=== PATIENT | male | born 1970 ===

== ENCOUNTER 2018-10-09 14:18 | Emergency (ER) | payer OTHER, SELFPAY ==
[2018-10-09 14:36] VITALS: BP 139/96; PULSE 115; RESP 22; TEMP 37.9; O2SAT 96; BMI 50.1
--- NOTE | 2018-10-09 14:57 | ED.SKABFB ---
HPI - Skin/Abscess/Foreign Bdy <NICOLE Vasquez-BC - Last Filed: 10/09/18 19:19> General Chief complaint: Skin/Abscess/Foreign Body Stated complaint: Hernia burst Time Seen by Provider: 10/09/18 14:35 Source: patient and family Mode of arrival: ambulatory Limitations: no limitations History of Present Illness HPI narrative: Patient is a 48-year-old male nonsmoker presents with his for chief complaint of a burst hernia. Has history of diabetes, hypertension, hypothyroid as well as a C-spine fracture a few years ago. He states his hernia has been bothering him for years, he is following up with primary care provider. He states it started hurting on Wednesday. He states he was trying to reduce it this morning and it ?burst a leak and drained brown and serosanguineous fluid. He denies any fevers. He denies any nausea vomiting or diarrhea. Denies any chest pain shortness of breath cough or congestion. Related Data Previous Rx's Medication Instructions Recorded cephalexin [Keflex] 500 mg PO QID 10 Days #40 cap 10/09/18 sulfamethoxazole-trimethoprim 1 tab PO BID #20 tab 10/09/18 [Bactrim DS] Allergies Allergy/AdvReac Type Severity Reaction Status Date / Time Iodinated Contrast- Oral and Allergy Verified 10/09/18 17:19 IV Dye Review of Systems <NICOLE Vasquez-BC - Last Filed: 10/09/18 19:19> Review of Systems GENERAL: Denies chills, fatigue, malaise, fever, sweats. HEENT: Denies sinus pain, ear pain, sore throat, difficulty swallowing, dizziness. RESPIRATORY: Denies dyspnea, cough, wheezing, hemoptysis, sputum. CARDIOVASCULAR: Denies chest pain, palpitations, orthopnea, edema, GASTROINTESTINAL: Denies nausea, vomiting, abdominal pain, diarrhea, constipation, melena. : Denies dysuria, frequency, incontinence, hematuria, urinary retention. MUSCULOSKELETAL: denies weakness, joint pain, or bony pain SKIN: Denies rash, skin lesions, or other NEUROLOGIC: Denies weakness, headache, numbness, change in speech, confusion, seizures, incoordination. PSYCHIATRIC: No concerning psychosocial issues. 12 point review of systems is negative except for those stated above PFSH <THIERRY Vasquez - Last Filed: 10/09/18 19:19> Medical History (Updated 10/09/18 @ 19:00 by THIERRY Vasquez) Diabetes (Acute) Hernia, umbilical (Acute) Hypertension (Acute) Morbid obesity (Acute) Social History Smoking Status: Never smoker Social History Smoking Status: Never smoker Exam <THIERRY Vasquez - Last Filed: 10/09/18 19:19> Narrative Exam Narrative: GENERAL: Morbidly obese gentleman lying on stretcher HEAD: Atraumatic. Normocephalic. No temporal or scalp tenderness. EYES: Pupils equal round and reactive. Extraocular motions intact. No scleral icterus. No injection or drainage. NECK: Trachea midline. No JVD or lymphadenopathy. Supple, nontender, no meningeal signs. CARDIOVASCULAR: Tachycardic rate and rhythm without murmurs, gallops, or rubs. RESPIRATORY: Clear to auscultation. Breath sounds equal bilaterally. No wheezes, rales, or rhonchi. No cough. No increased respiratory effort. No accessory muscle use. GASTROINTESTINAL: Abdomen obese, non-tender, nondistended. No hepato-splenomegaly, or palpable masses. No guarding. Large umbilical hernia present. Soft to palpation. No discoloration. Active bowel sounds.. NEURO: AOx3. SKIN: 26 x 28 cm of erythema surrounding umbilicus. Serosanguineous drainage noted from umbilicus. Initial Vital Signs Initial Vital Signs: Vital Signs Temperature 100.2 F H 10/09/18 14:36 Pulse Rate 115 H 10/09/18 14:36 Respiratory Rate 22 10/09/18 14:36 Blood Pressure 139/96 H 10/09/18 14:36 Pulse Oximetry 96 10/09/18 14:36 <Iris Corbett DO - Last Filed: 10/17/18 07:42> Narrative Exam Narrative: GENERAL: Alert and oriented x three, obese male in mild distress. HEENT: Head normocephalic, atraumatic, EOMI, pupils reactive, face symmetric, moist mucous membranes NECK: Supple, full range of motion CARDIOVASCULAR: Regular rate and rhythm without murmurs, rubs or gallops. RESPIRATORY: Breath sounds equal bilaterally, no wheezes rales or rhonchi. ABDOMEN: Soft, nontender. Normoactive bowel sounds all 4 quadrants. No guarding or rebound, rigidity, no mass. Patient has a umbilical hernia that is easily reducible. There is a small opening on the inside of the umbilicus that appears to be open and the source of drainage I am unable to express any further purulence fluid on exam. There is a scant amount of blood. There is some erythema surrounding the umbilicus which extends about 5cm. With some hyperkeratotic skin which patient states is old. : No CVA tenderness EXTREMITIES: Normal range of motion, no clubbing or edema. Neurovascularly intact NEUROLOGICAL: Cranial nerves II through XII grossly intact. Moving all extremities SKIN: Warm, dry, no petechiae, no rashes or lesions. Initial Vital Signs Initial Vital Signs: Vital Signs Temperature 100.2 F H 10/09/18 14:36 Pulse Rate 115 H 10/09/18 14:36 Respiratory Rate 22 10/09/18 14:36 Blood Pressure 139/96 H 10/09/18 14:36 Pulse Oximetry 96 10/09/18 14:36 Course <NICOLE Vasquez- - Last Filed: 10/09/18 19:19> Orders Ordered: Discontinued Medications Diphenhydramine HCl (Benadryl) 50 mg IV NOW ONE Stop: 10/09/18 15:01 Last Admin: 10/09/18 15:23 Dose: 50 mg Sodium Chloride (Normal Saline 0.9%) 1,000 mls @ 1,000 mls/hr IV BOLUS ONE Stop: 10/09/18 15:40 Last Infusion: 10/09/18 17:27 Dose: 0 mls/hr Admin: 10/09/18 15:23 Dose: 1,000 mls/hr Ceftriaxone Sodium/Dextrose (Rocephin) 2 gm in 50 mls @ 100 mls/hr IV NOW ONE Stop: 10/09/18 17:41 Last Infusion: 10/09/18 17:40 Dose: 0 mls/hr Admin: 10/09/18 17:27 Dose: 100 mls/hr Ketorolac Tromethamine (Toradol) 30 mg IV NOW ONE Stop: 10/09/18 17:34 Last Admin: 10/09/18 17:41 Dose: 30 mg Methylprednisolone (Solu-Medrol 125 Mg Vial) 125 mg IV NOW ONE Stop: 10/09/18 15:01 Last Admin: 10/09/18 15:23 Dose: 125 mg Trimethoprim/Sulfamethoxazole (Bactrim Ds) 1 tab PO NOW ONE Stop: 10/09/18 18:12 Last Admin: 10/09/18 18:17 Dose: 1 tab Vital Signs - 8 hr 10/09/18 14:36 10/09/18 17:00 10/09/18 18:18 Temperature 100.2 F H Pulse Rate 115 H 99 H 63 Respiratory Rate 22 11 L 18 Blood Pressure 139/96 H Blood Pressure [Left Arm] 113/71 142/84 H Pulse Oximetry 96 95 93 10/09/18 18:29 Temperature Pulse Rate 98 H Respiratory Rate 16 Blood Pressure Blood Pressure [Left Arm] 148/93 H Pulse Oximetry 94 <Iris Corbett DO - Last Filed: 10/17/18 07:42> Orders Ordered: Discontinued Medications Diphenhydramine HCl (Benadryl) 50 mg IV NOW ONE Stop: 10/09/18 15:01 Last Admin: 10/09/18 15:23 Dose: 50 mg Sodium Chloride (Normal Saline 0.9%) 1,000 mls @ 1,000 mls/hr IV BOLUS ONE Stop: 10/09/18 15:40 Last Infusion: 10/09/18 17:27 Dose: 0 mls/hr Admin: 10/09/18 15:23 Dose: 1,000 mls/hr Ceftriaxone Sodium/Dextrose (Rocephin) 2 gm in 50 mls @ 100 mls/hr IV NOW ONE Stop: 10/09/18 17:41 Last Infusion: 10/09/18 17:40 Dose: 0 mls/hr Admin: 10/09/18 17:27 Dose: 100 mls/hr Ketorolac Tromethamine (Toradol) 30 mg IV NOW ONE Stop: 10/09/18 17:34 Last Admin: 10/09/18 17:41 Dose: 30 mg Methylprednisolone (Solu-Medrol 125 Mg Vial) 125 mg IV NOW ONE Stop: 10/09/18 15:01 Last Admin: 10/09/18 15:23 Dose: 125 mg Trimethoprim/Sulfamethoxazole (Bactrim Ds) 1 tab PO NOW ONE Stop: 10/09/18 18:12 Last Admin: 10/09/18 18:17 Dose: 1 tab Vital Signs - 8 hr 10/09/18 14:36 10/09/18 17:00 10/09/18 18:18 Temperature 100.2 F H Pulse Rate 115 H 99 H 63 Respiratory Rate 22 11 L 18 Blood Pressure 139/96 H Blood Pressure [Left Arm] 113/71 142/84 H Pulse Oximetry 96 95 93 10/09/18 18:29 Temperature Pulse Rate 98 H Respiratory Rate 16 Blood Pressure Blood Pressure [Left Arm] 148/93 H Pulse Oximetry 94 MDM - Skin/Abscess/Foreign Bdy <Iris Lr, APPRAISAL MANAGER-BC - Last Filed: 10/09/18 19:19> Lab Data Result diagrams: 10/09/18 14:50 10/09/18 14:50 Lab Results 10/09/18 10/09/18 10/09/18 Range/Units 14:50 14:50 14:50 WBC 13.4 H (4.5-11.0) X10^3/uL RBC 4.55 (4.5-5.9) X10^6/uL Hgb 13.7 (13.5-17.5) g/dL Hct 40.9 L (41-53) % MCV 89.9 (80-100) fL MCH 30.0 (26-34) PG MCHC 33.4 (30-36) % RDW 13.4 (11.6-14.8) % Plt Count 262 (150-400) X10^3/uL Neut % (Auto) 71.3 (50-75) % Lymph % (Auto) 14.5 L (25-40) % [place] % (Auto) 10.2 (3-14) % Eos % (Auto) 3.1 (2-4) % Baso % (Auto) 0.9 (0-2) % Neut # (Auto) 9600 H (9702-8935) /uL Lymph # (Auto) 1900 (7297-3890) /uL [place] # (Auto) 1400 H (0-900) /uL Eos # (Auto) 400 (0-450) /uL Baso # (Auto) 100 (0-100) /uL PT 13.5 H (10.1-12.7) SECONDS INR 1.2 (0.9-1.3) APTT 28 (26.4-36.2) SECONDS Sodium (137-145) mmol/L Potassium (3.4-5.1) mmol/L Chloride (98-107) mmol/L Carbon Dioxide (22-32) mmol/L BUN (9-20) mg/dL Creatinine (0.66-1.25) mg/dL Estimated GFR (>60) mL/min BUN/Creatinine Ratio (6-22) Glucose (70-100) mg/dL Lactate (0.7-2.1) mmol/L Calcium (8.4-10.2) mg/dL Total Bilirubin (0.2-1.3) mg/dL AST (17-59) IU/L ALT (21-72) IU/L Alkaline Phosphatase (38-126) U/L Total Protein (6.3-8.2) g/dL Albumin (3.5-5.0) g/dL Globulin (1.7-4.1) g/dL Albumin/Globulin Ratio (1.0-2.8) Procalcitonin 0.13 (<0.5) ng/mL Urine Color Urine Appearance Urine pH (4.5-8.0) Ur Specific [place] (1.000-1.035) Urine Protein (Negative) Urine Glucose (UA) (Negative) g/dL Urine Ketones (NEGATIVE) Urine Occult Blood (Negative) Urine Nitrate (Negative) Urine Bilirubin (NEGATIVE) Urine Urobilinogen (0.2) E.U./dL Ur Leukocyte Esterase (NEGATIVE) Urine RBC (0-5/HPF) Urine WBC (0-5/HPF) Ur Squamous Epith Cells (0-5/HPF) Amorphous Sediment Urine Bacteria (None) Urine Mucus (Negative) Ur Culture Indicated? 10/09/18 10/09/18 10/09/18 Range/Units 14:50 14:50 15:15 WBC (4.5-11.0) X10^3/uL RBC (4.5-5.9) X10^6/uL Hgb (13.5-17.5) g/dL Hct (41-53) % MCV (80-100) fL MCH (26-34) PG MCHC (30-36) % RDW (11.6-14.8) % Plt Count (150-400) X10^3/uL Neut % (Auto) (50-75) % Lymph % (Auto) (25-40) % [place] % (Auto) (3-14) % Eos % (Auto) (2-4) % Baso % (Auto) (0-2) % Neut # (Auto) (9220-2503) /uL Lymph # (Auto) (0619-0114) /uL [place] # (Auto) (0-900) /uL Eos # (Auto) (0-450) /uL Baso # (Auto) (0-100) /uL PT (10.1-12.7) SECONDS INR (0.9-1.3) APTT (26.4-36.2) SECONDS Sodium 133 L (137-145) mmol/L Potassium 4.1 (3.4-5.1) mmol/L Chloride 98 (98-107) mmol/L Carbon Dioxide 24 (22-32) mmol/L BUN 9 (9-20) mg/dL Creatinine 0.80 (0.66-1.25) mg/dL Estimated GFR > 60.0 (>60) mL/min BUN/Creatinine Ratio 11.3 (6-22) Glucose 209 H (70-100) mg/dL Lactate 1.7 (0.7-2.1) mmol/L Calcium 8.9 (8.4-10.2) mg/dL Total Bilirubin 0.6 (0.2-1.3) mg/dL AST 29 (17-59) IU/L ALT 28 (21-72) IU/L Alkaline Phosphatase 108 (38-126) U/L Total Protein 7.1 (6.3-8.2) g/dL Albumin 3.8 (3.5-5.0) g/dL Globulin 3.3 (1.7-4.1) g/dL Albumin/Globulin Ratio 1.2 (1.0-2.8) Procalcitonin (<0.5) ng/mL Urine Color Yellow Urine Appearance Clear Urine pH 5.5 (4.5-8.0) Ur Specific [place] 1.020 (1.000-1.035) Urine Protein 1+ H (Negative) Urine Glucose (UA) Negative (Negative) g/dL Urine Ketones Trace H (NEGATIVE) Urine Occult Blood Negative (Negative) Urine Nitrate Negative (Negative) Urine Bilirubin Negative (NEGATIVE) Urine Urobilinogen 0.2 (0.2) E.U./dL Ur Leukocyte Esterase Negative (NEGATIVE) Urine RBC None seen (0-5/HPF) Urine WBC None seen (0-5/HPF) Ur Squamous Epith Cells 0-1 /hpf (0-5/HPF) Amorphous Sediment 1+ Urine Bacteria None seen (None) Urine Mucus 1+ H (Negative) Ur Culture Indicated? Cult not indicated Imaging Data CT scan - abdomen: Radiologist's impression: [address] [address] [address] Scan Report Signed Patient: Tirso Rooney JMR#: [id number] : 1970Acct:[id number] Age/Sex: 48 / MDate of Service: 10/09/18 Loc: ED Accession Number: [id number] Procedure: CT abdomen pelvis w con Ordering Provider: Iris Lr APPRAISAL MANAGER-BC PROCEDURE: CT ABDOMEN PELVIS W CON INDICATIONS: draining fluid from umbilicus TECHNIQUE: After the administration of intravenous contrast, 5 mm thick sections acquired from the diaphragm to the symphysis. 5 mm coronal and sagittal reformats were acquired. For radiation dose reduction, the following was used: automated exposure control, adjustment of mA and/or kV according to patient size. COMPARISON: None. FINDINGS: Image quality: This study is limited by body habitus. Importantly anterior abdominal wall is off of the view of this study. ABDOMEN: Lung bases: Lung bases are clear. Heart size is normal. A small hiatal hernia is incidentally noted. Solid organs: Liver is normal in size and enhancement. Diffuse fatty liver infiltration is noted. Gallbladder wall is not thickened. Biliary system is non dilated. Pancreas enhances normally. Spleen is normal in size and enhancement. No adrenal nodules. Kidneys demonstrate normal size and enhancement, without hydronephrosis. Peritoneum and bowel: Bowel loops demonstrate normal wall thickness and caliber. No free fluid or air. Nodes and vessels: No retroperitoneal or mesenteric adenopathy by size criteria. Aorta and inferior vena cava are normal in size. Miscellaneous: This patient has a large periumbilical hernia, which contains fat and nondilated small bowel. There is thickening seen of the skin along the anterior and inferior portions of the hernia. However, this is incompletely visualized, secondary to body habitus and is outside of the [id number] of the CT study. No focal fluid collections are seen. PELVIS: Genitourinary: Bladder wall thickness is normal. Miscellaneous: No inguinal hernias or adenopathy. Bones: No suspicious bony lesions. No vertebral body compression fractures. Lumbar spine degenerative changes are seen. IMPRESSION: Incompletely seen large periumbilical hernia which contains fat and small bowel. There is skin thickening seen along the anterior aspect of the hernia, which is likely related to cellulitis. No focal drainable abscess can be seen. Incidental note is made of: Small hiatal hernia Fatty liver infiltration Premature lumbar spine degenerative change Dictated by: Jean Marie Cruz M.D. on 10/09/2018 at 15:26 Approved by: Jean Marie Cruz M.D. on 10/09/2018 at 15:30 MDM Narrative Medical decision making narrative: The patient is a 48-year-old male who presents with chief complaint of leakage from his umbilicus and concerned that is his hernia. He does not have an elevated lactate or procalcitonin, though he has low-grade temperature and a slightly elevated white blood cell count. Given his tachycardia and low-grade temperature, doctor Corbett also evaluated the patient and his hernia. A CT scan was taken to obtain any acute etiologies were hurting his hernia. He does have overlying cellulitis, so I think it is likely that he burst an abscess. Wound culture was taken, he was placed on Keflex and Bactrim after receiving IV Rocephin. I discussed at length return precautions for fever, inability keep down food or fluids etc. Patient was given Toradol for pain, with good result. Given his allergy to contrast dye, he was given Benadryl and Solu-Medrol prior to administration. The patient have no questions or concerns upon discharge. He states he never return precautions and plan on following up with the patient's PCP tomorrow. <Iris Corbett, DO - Last Filed: 10/17/18 07:42> Lab Data Attestation: I reviewed the patient's lab results. Lab Results 10/09/18 10/09/18 10/09/18 Range/Units 14:50 14:50 14:50 WBC 13.4 H (4.5-11.0) X10^3/uL RBC 4.55 (4.5-5.9) X10^6/uL Hgb 13.7 (13.5-17.5) g/dL Hct 40.9 L (41-53) % MCV 89.9 (80-100) fL MCH 30.0 (26-34) PG MCHC 33.4 (30-36) % RDW 13.4 (11.6-14.8) % Plt Count 262 (150-400) X10^3/uL Neut % (Auto) 71.3 (50-75) % Lymph % (Auto) 14.5 L (25-40) % [place] % (Auto) 10.2 (3-14) % Eos % (Auto) 3.1 (2-4) % Baso % (Auto) 0.9 (0-2) % Neut # (Auto) 9600 H (1085-0657) /uL Lymph # (Auto) 1900 (1107-1916) /uL [place] # (Auto) 1400 H (0-900) /uL Eos # (Auto) 400 (0-450) /uL Baso # (Auto) 100 (0-100) /uL PT 13.5 H (10.1-12.7) SECONDS INR 1.2 (0.9-1.3) APTT 28 (26.4-36.2) SECONDS Sodium (137-145) mmol/L Potassium (3.4-5.1) mmol/L Chloride (98-107) mmol/L Carbon Dioxide (22-32) mmol/L BUN (9-20) mg/dL Creatinine (0.66-1.25) mg/dL Estimated GFR (>60) mL/min BUN/Creatinine Ratio (6-22) Glucose (70-100) mg/dL Lactate (0.7-2.1) mmol/L Calcium (8.4-10.2) mg/dL Total Bilirubin (0.2-1.3) mg/dL AST (17-59) IU/L ALT (21-72) IU/L Alkaline Phosphatase (38-126) U/L Total Protein (6.3-8.2) g/dL Albumin (3.5-5.0) g/dL Globulin (1.7-4.1) g/dL Albumin/Globulin Ratio (1.0-2.8) Procalcitonin 0.13 (<0.5) ng/mL Urine Color Urine Appearance Urine pH (4.5-8.0) Ur Specific [place] (1.000-1.035) Urine Protein (Negative) Urine Glucose (UA) (Negative) g/dL Urine Ketones (NEGATIVE) Urine Occult Blood (Negative) Urine Nitrate (Negative) Urine Bilirubin (NEGATIVE) Urine Urobilinogen (0.2) E.U./dL Ur Leukocyte Esterase (NEGATIVE) Urine RBC (0-5/HPF) Urine WBC (0-5/HPF) Ur Squamous Epith Cells (0-5/HPF) Amorphous Sediment Urine Bacteria (None) Urine Mucus (Negative) Ur Culture Indicated? 10/09/18 10/09/18 10/09/18 Range/Units 14:50 14:50 15:15 WBC (4.5-11.0) X10^3/uL RBC (4.5-5.9) X10^6/uL Hgb (13.5-17.5) g/dL Hct (41-53) % MCV (80-100) fL MCH (26-34) PG MCHC (30-36) % RDW (11.6-14.8) % Plt Count (150-400) X10^3/uL Neut % (Auto) (50-75) % Lymph % (Auto) (25-40) % [place] % (Auto) (3-14) % Eos % (Auto) (2-4) % Baso % (Auto) (0-2) % Neut # (Auto) (8447-0642) /uL Lymph # (Auto) (6761-3303) /uL [place] # (Auto) (0-900) /uL Eos # (Auto) (0-450) /uL Baso # (Auto) (0-100) /uL PT (10.1-12.7) SECONDS INR (0.9-1.3) APTT (26.4-36.2) SECONDS Sodium 133 L (137-145) mmol/L Potassium 4.1 (3.4-5.1) mmol/L Chloride 98 (98-107) mmol/L Carbon Dioxide 24 (22-32) mmol/L BUN 9 (9-20) mg/dL Creatinine 0.80 (0.66-1.25) mg/dL Estimated GFR > 60.0 (>60) mL/min BUN/Creatinine Ratio 11.3 (6-22) Glucose 209 H (70-100) mg/dL Lactate 1.7 (0.7-2.1) mmol/L Calcium 8.9 (8.4-10.2) mg/dL Total Bilirubin 0.6 (0.2-1.3) mg/dL AST 29 (17-59) IU/L ALT 28 (21-72) IU/L Alkaline Phosphatase 108 (38-126) U/L Total Protein 7.1 (6.3-8.2) g/dL Albumin 3.8 (3.5-5.0) g/dL Globulin 3.3 (1.7-4.1) g/dL Albumin/Globulin Ratio 1.2 (1.0-2.8) Procalcitonin (<0.5) ng/mL Urine Color Yellow Urine Appearance Clear Urine pH 5.5 (4.5-8.0) Ur Specific [place] 1.020 (1.000-1.035) Urine Protein 1+ H (Negative) Urine Glucose (UA) Negative (Negative) g/dL Urine Ketones Trace H (NEGATIVE) Urine Occult Blood Negative (Negative) Urine Nitrate Negative (Negative) Urine Bilirubin Negative (NEGATIVE) Urine Urobilinogen 0.2 (0.2) E.U./dL Ur Leukocyte Esterase Negative (NEGATIVE) Urine RBC None seen (0-5/HPF) Urine WBC None seen (0-5/HPF) Ur Squamous Epith Cells 0-1 /hpf (0-5/HPF) Amorphous Sediment 1+ Urine Bacteria None seen (None) Urine Mucus 1+ H (Negative) Ur Culture Indicated? Cult not indicated Imaging Data CT scan - abdomen: Radiologist's impression: Tirso Rooney 48 M [address] [address] [address] Scan Report Signed Patient: ToribioTirso JMR#: [id number] : 1970Acct:[id number] Age/Sex: 48 / MDate of Service: 10/09/18 Loc: ED Accession Number: [id number] Procedure: CT abdomen pelvis w con Ordering Provider: Iris LrP- PROCEDURE: CT ABDOMEN PELVIS W CON INDICATIONS: draining fluid from umbilicus TECHNIQUE: After the administration of intravenous contrast, 5 mm thick sections acquired from the diaphragm to the symphysis. 5 mm coronal and sagittal reformats were acquired. For radiation dose reduction, the following was used: automated exposure control, adjustment of mA and/or kV according to patient size. COMPARISON: None. FINDINGS: Image quality: This study is limited by body habitus. Importantly anterior abdominal wall is off of the view of this study. ABDOMEN: Lung bases: Lung bases are clear. Heart size is normal. A small hiatal hernia is incidentally noted. Solid organs: Liver is normal in size and enhancement. Diffuse fatty liver infiltration is noted. Gallbladder wall is not thickened. Biliary system is non dilated. Pancreas enhances normally. Spleen is normal in size and enhancement. No adrenal nodules. Kidneys demonstrate normal size and enhancement, without hydronephrosis. Peritoneum and bowel: Bowel loops demonstrate normal wall thickness and caliber. No free fluid or air. Nodes and vessels: No retroperitoneal or mesenteric adenopathy by size criteria. Aorta and inferior vena cava are normal in size. Miscellaneous: This patient has a large periumbilical hernia, which contains fat and nondilated small bowel. There is thickening seen of the skin along the anterior and inferior portions of the hernia. However, this is incompletely visualized, secondary to body habitus and is outside of the [id number] of the CT study. No focal fluid collections are seen. PELVIS: Genitourinary: Bladder wall thickness is normal. Miscellaneous: No inguinal hernias or adenopathy. Bones: No suspicious bony lesions. No vertebral body compression fractures. Lumbar spine degenerative changes are seen. IMPRESSION: Incompletely seen large periumbilical hernia which contains fat and small bowel. There is skin thickening seen along the anterior aspect of the hernia, which is likely related to cellulitis. No focal drainable abscess can be seen. Incidental note is made of: Small hiatal hernia Fatty liver infiltration Premature lumbar spine degenerative change Dictated by: Jean Maire Cruz M.D. on 10/09/2018 at 15:26 Approved by: Jean Marie Cruz M.D. on 10/09/2018 at 15:30 MDM Narrative Medical decision making narrative: Patient does not have any signs of sepsis or intraabdominal infection at this time, does have cellulitis. Plan for antibiotics, follow up and patient to return if not improving. Discharge Plan Departure Patient Disposition: Home Clinical Impression: Cellulitis Qualifiers: Site of cellulitis: trunk Site of cellulitis of trunk: abdominal wall Qualified Code(s): L03.311 - Cellulitis of abdominal wall Abscess of skin or subcutaneous tissue Qualifiers: Site of cutaneous abscess: trunk Site of cutaneous abscess of trunk: umbilicus Qualified Code(s): L02.216 - Cutaneous abscess of umbilicus Discharge Date/Time: 10/09/18 18:44 Interventions: ED Discharge Assessment Last Done: 10/09/18 18:43 Instructions: DI for Cellulitis -- Adult Activity Restrictions/Additional Instructions: Your abdominal CT came back with no problems regarding hernia. However we do have overlying infection. We did get a wound culture, and results should come back in 48-72 hours. If the antibiotics I have selected do not provide coverage, you will get a phone call and new antibiotics will be called in. Please monitor for fevers, inability keep down fluids or any acute changes. Please follow up with primary care provider in the next few days. If you are unable to keep down fluids, have high fevers or have any acute concerns please come back to the emergency department. Please follow up with your PCP as soon as able. I have given you to antibiotics. Keflex and Bactrim to provide optimal antibiotic coverage. I have given her a prescription of Toradol for pain. Do not combine it with ibuprofen Aleve or any other NSAIDs. Prescriptions: New sulfamethoxazole-trimethoprim [Bactrim DS] 800-160 mg tablet 1 tab PO BID Qty: 20 RF: 0 cephalexin [Keflex] 500 mg capsule 500 mg PO QID 10 Days Qty: 40 RF: 0 Referrals: Imelda Velázquez [Non-Staff] - <Iris Corbett DO - Last Filed: 10/17/18 07:42> Cosign ED Attending Cosignature Attestation: I was immediately available in the department for consultation, case was discussed and patient was evaluated by myself. This documentation has been reviewed and I agree with assessment and plan. Supervised by Iris Corbett DO
--- NOTE | 2018-10-09 15:00 | ED_ITS ---
HPI - Skin/Abscess/Foreign Bdy <NICOLE Vasquez-BC - Last Filed: 10/09/18 19:19> General Chief complaint: Skin/Abscess/Foreign Body Stated complaint: Hernia burst Time Seen by Provider: 10/09/18 14:35 Source: patient and family Mode of arrival: ambulatory Limitations: no limitations History of Present Illness HPI narrative: Patient is a 48-year-old male nonsmoker presents with his for chief complaint of a burst hernia. Has history of diabetes, hypertension, hypothyroid as well as a C-spine fracture a few years ago. He states his hernia has been bothering him for years, he is following up with primary care provider. He states it started hurting on Wednesday. He states he was trying to reduce it this morning and it ?burst a leak and drained brown and serosanguineous flui d. He denies any fevers. He denies any nausea vomiting or diarrhea. Denies any chest pain shortness of breath cough or congestion. Related Data Previous Rx's Medication Instructions Recorded cephalexin [Keflex] 500 mg PO QID 10 Days #40 cap 10/09/18 sulfamethoxazole-trimethoprim 1 tab PO BID #20 tab 10/09/18 [Bactrim DS] Allergies Allergy/AdvReac Type Severity Reaction Status Date / Time Iodinated Contrast- Oral and Allergy Verified 10/09/18 17:19 IV Dye Review of Systems <NICOLE Vasquez- - Last Filed: 10/09/18 19:19> Review of Systems GENERAL: Denies chills, fatigue, malaise, fever, sweats. HEENT: Denies sinus pain, ear pain, sore throat, difficulty swallowing, dizziness. RESPIRATORY: Denies dyspnea, cough, wheezing, hemoptysis, sputum. CARDIOVASCULAR: Denies chest pain, palpitations, orthopnea, edema, GASTROINTESTINAL: Denies nausea, vomiting, abdominal pain, diarrhea, constipation, melena. : Denies dysuria, frequency, incontinence, hematuria, urinary retention. MUSCULOSKELETAL: denies weakness, joint pain, or bony pain SKIN: Denies rash, skin lesions, or other NEUROLOGIC: Denies weakness, headache, numbness, change in speech, confusion, seizures, incoordination. PSYCHIATRIC: No concerning psychosocial issues. 12 point review of systems is negative except for those stated above PFSH <THIERRY Vasquez - Last Filed: 10/09/18 19:19> Medical History (Updated 10/09/18 @ 19:00 by THIERRY Vasquez) Diabetes (Acute) Hernia, umbilical (Acute) Hypertension (Acute) Morbid obesity (Acute) Social History Smoking Status: Never smoker Social History Smoking Status: Never smoker Exam <THIERRY Vasquez - Last Filed: 10/09/18 19:19> Narrative Exam Narrative: GENERAL: Morbidly obese gentleman lying on stretcher HEAD: Atraumatic. Normocephalic. No temporal or scalp tenderness. EYES: Pupils equal round and reactive. Extraocular motions intact. No scleral icterus. No injection or drainage. NECK: Trachea midline. No JVD or lymphadenopathy. Supple, nontender, no meningeal signs. CARDIOVASCULAR: Tachycardic rate and rhythm without murmurs, gallops, or rubs. RESPIRATORY: Clear to auscultation. Breath sounds equal bilaterally. No wheezes, rales, or rhonchi. No cough. No increased respiratory effort. No accessory muscle use. GASTROINTESTINAL: Abdomen obese, non-tender, nondistended. No hepato-sple nomegaly, or palpable masses. No guarding. Large umbilical hernia present. Soft to palpation. No discoloration. Active bowel sounds.. NEURO: AOx3. SKIN: 26 x 28 cm of erythema surrounding umbilicus. Serosanguineous drainage noted from umbilicus. Initial Vital Signs Initial Vital Signs: Vital Signs Temperature 100.2 F H 10/09/18 14:36 Pulse Rate 115 H 10/09/18 14:36 Respiratory Rate 22 10/09/18 14:36 Blood Pressure 139/96 H 10/09/18 14:36 Pulse Oximetry 96 10/09/18 14:36 <Iris Corbett DO - Last Filed: 10/17/18 07:42> Narrative Exam Narrative: GENERAL: Alert and oriented x three, obese male in mild distress. HEENT: Head normocephalic, atraumatic, EOMI, pupils reactive, face symmetric, moist mucous membranes NECK: Supple, full range of motion CARDIOVASCULAR: Regular rate and rhythm without murmurs, rubs or gallops. RESPIRATORY: Breath sounds equal bilaterally, no wheezes rales or rhonchi. ABDOMEN: Soft, nontender. Normoactive bowel sounds all 4 quadrants. No guardin g or rebound, rigidity, no mass. Patient has a umbilical hernia that is easily reducible. There is a small opening on the inside of the umbilicus that appears to be open and the source of drainage I am unable to express any further purulence fluid on exam. There is a scant amount of blood. There is some erythema surrounding the umbilicus which extends about 5cm. With some hyperkeratotic skin which patient states is old. : No CVA tenderness EXTREMITIES: Normal range of motion, no clubbing or edema. Neurovascularly intact NEUROLOGICAL: Cranial nerves II through XII grossly intact. Moving all extremities SKIN: Warm, dry, no petechiae, no rashes or lesions. Initial Vital Signs Initial Vital Signs: Vital Signs Temperature 100.2 F H 10/09/18 14:36 Pulse Rate 115 H 10/09/18 14:36 Respiratory Rate 22 10/09/18 14:36 Blood Pressure 139/96 H 10/09/18 14:36 Pulse Oximetry 96 10/09/18 14:36 Course <NICOLE Vasquez- - Last Filed: 10/09/18 19:19> Orders Ordered: Discontinued Medications Diphenhydramine HCl (Benadryl) 50 mg IV NOW ONE Stop: 10/09/18 15:01 Last Admin: 10/09/18 15:23 Dose: 50 mg Sodium Chloride (Normal Saline 0.9%) 1,000 mls @ 1,000 mls/hr IV BOLUS ONE Stop: 10/09/18 15:40 Last Infusion: 10/09/18 17:27 Dose: 0 mls/hr Admin: 10/09/18 15:23 Dose: 1,000 mls/hr Ceftriaxone Sodium/Dextrose (Rocephin) 2 gm in 50 mls @ 100 mls/hr IV NOW ONE Stop: 10/09/18 17:41 Last Infusion: 10/09/18 17:40 Dose: 0 mls/hr Admin: 10/09/18 17:27 Dose: 100 mls/hr Ketorolac Tromethamine (Toradol) 30 mg IV NOW ONE Stop: 10/09/18 17:34 Last Admin: 10/09/18 17:41 Dose: 30 mg Methylprednisolone (Solu-Medrol 125 Mg Vial) 125 mg IV NOW ONE Stop: 10/09/18 15:01 Last Admin: 10/09/18 15:23 Dose: 125 mg Trimethoprim/Sulfamethoxazole (Bactrim Ds) 1 tab PO NOW ONE Stop: 10/09/18 18:12 Last Admin: 10/09/18 18:17 Dose: 1 tab Vital Signs - 8 hr 10/09/18 14:36 10/09/18 17:00 10/09/18 18:18 Temperature 100.2 F H Pulse Rate 115 H 99 H 63 Respiratory Rate 22 11 L 18 Blood Pressure 139/96 H Blood Pressure [Left Arm] 113/71 142/84 H Pulse Oximetry 96 95 93 10/09/18 18:29 Temperature Pulse Rate 98 H Respiratory Rate 16 Blood Pressure Blood Pressure [Left Arm] 148/93 H Pulse Oximetry 94 <Iris Corbett DO - Last Filed: 10/17/18 07:42> Orders Ordered: Discontinued Medications Diphenhydramine HCl (Benadryl) 50 mg IV NOW ONE Stop: 10/09/18 15:01 Last Admin: 10/09/18 15:23 Dose: 50 mg Sodium Chloride (Normal Saline 0.9%) 1,000 mls @ 1,000 mls/hr IV BOLUS ONE Stop: 10/09/18 15:40 Last Infusion: 10/09/18 17:27 Dose: 0 mls/hr Admin: 10/09/18 15:23 Dose: 1,000 mls/hr Ceftriaxone Sodium/Dextrose (Rocephin) 2 gm in 50 mls @ 100 mls/hr IV NOW ONE Stop: 10/09/18 17:41 Last Infusion: 10/09/18 17:40 Dose: 0 mls/hr Admin: 10/09/18 17:27 Dose: 100 mls/hr Ketorolac Tromethamine (Toradol) 30 mg IV NOW ONE Stop: 10/09/18 17:34 Last Admin: 10/09/18 17:41 Dose: 30 mg Methylprednisolone (Solu-Medrol 125 Mg Vial) 125 mg IV NOW ONE Stop: 10/09/18 15:01 Last Admin: 10/09/18 15:23 Dose: 125 mg Trimethoprim/Sulfamethoxazole (Bactrim Ds) 1 tab PO NOW ONE Stop: 10/09/18 18:12 Last Admin: 10/09/18 18:17 Dose: 1 tab Vital Signs - 8 hr 10/09/18 14:36 10/09/18 17:00 10/09/18 18:18 Temperature 100.2 F H Pulse Rate 115 H 99 H 63 Respiratory Rate 22 11 L 18 Blood Pressure 139/96 H Blood Pressure [Left Arm] 113/71 142/84 H Pulse Oximetry 96 95 93 10/09/18 18:29 Temperature Pulse Rate 98 H Respiratory Rate 16 Blood Pressure Blood Pressure [Left Arm] 148/93 H Pulse Oximetry 94 MDM - Skin/Abscess/Foreign Bdy <Iris Lr, CREDIT REPORTER-BC - Last Filed: 10/09/18 19:19> Lab Data Result diagrams: 10/09/18 14:50 10/09/18 14:50 Lab Results 10/09/18 10/09/18 10/09/18 Range/Units 14:50 14:50 14:50 WBC 13.4 H (4.5-11.0) X10^3/uL RBC 4.55 (4.5-5.9) X10^6/uL Hgb 13.7 (13.5-17.5) g/dL Hct 40.9 L (41-53) % MCV 89.9 (80-100) fL MCH 30.0 (26-34) PG MCHC 33.4 (30-36) % RDW 13.4 (11.6-14.8) % Plt Count 262 (150-400) X10^3/uL Neut % (Auto) 71.3 (50-75) % Lymph % (Auto) 14.5 L (25-40) % [place] % (Auto) 10.2 (3-14) % Eos % (Auto) 3.1 (2-4) % Baso % (Auto) 0.9 (0-2) % Neut # (Auto) 9600 H (8016-0838) /uL Lymph # (Auto) 1900 (8747-6420) /uL [place] # (Auto) 1400 H (0-900) /uL Eos # (Auto) 400 (0-450) /uL Baso # (Auto) 100 (0-100) /uL PT 13.5 H (10.1-12.7) SECONDS INR 1.2 (0.9-1.3) APTT 28 (26.4-36.2) SECONDS Sodium (137-145) mmol/L Potassium (3.4-5.1) mmol/L Chloride (98-107) mmol/L Carbon Dioxide (22-32) mmol/L BUN (9-20) mg/dL Creatinine (0.66-1.25) mg/dL Estimated GFR (>60) mL/min BUN/Creatinine Ratio (6-22) Glucose (70-100) mg/dL Lactate (0.7-2.1) mmol/L Calcium (8.4-10.2) mg/dL Total Bilirubin (0.2-1.3) mg/dL AST (17-59) IU/L ALT (21-72) IU/L Alkaline Phosphatase (38-126) U/L Total Protein (6.3-8.2) g/dL Albumin (3.5-5.0) g/dL Globulin (1.7-4.1) g/dL Albumin/Globulin Ratio (1.0-2.8) Procalcitonin 0.13 (<0.5) ng/mL Urine Color Urine Appearance Urine pH (4.5-8.0) Ur Specific [employer] (1.000-1.035) Urine Protein (Negative) Urine Glucose (UA) (Negative) g/dL Urine Ketones (NEGATIVE) Urine Occult Blood (Negative) Urine Nitrate (Negative) Urine Bilirubin (NEGATIVE) Urine Urobilinogen (0.2) E.U./dL Ur Leukocyte Esterase (NEGATIVE) Urine RBC (0-5/HPF) Urine WBC (0-5/HPF) Ur Squamous Epith Cells (0-5/HPF) Amorphous Sediment Urine Bacteria (None) Urine Mucus (Negative) Ur Culture Indicated? 10/09/18 10/09/18 10/09/18 Range/Units 14:50 14:50 15:15 WBC (4.5-11.0) X10^3/uL RBC (4.5-5.9) X10^6/uL Hgb (13.5-17.5) g/dL Hct (41-53) % MCV (80-100) fL MCH (26-34) PG MCHC (30-36) % RDW (11.6-14.8) % Plt Count (150-400) X10^3/uL Neut % (Auto) (50-75) % Lymph % (Auto) (25-40) % [place] % (Auto) (3-14) % Eos % (Auto) (2-4) % Baso % (Auto) (0-2) % Neut # (Auto) (6218-7257) /uL Lymph # (Auto) (4516-7380) /uL [place] # (Auto) (0-900) /uL Eos # (Auto) (0-450) /uL Baso # (Auto) (0-100) /uL PT (10.1-12.7) SECONDS INR (0.9-1.3) APTT (26.4-36.2) SECONDS Sodium 133 L (137-145) mmol/L Potassium 4.1 (3.4-5.1) mmol/L Chloride 98 (98-107) mmol/L Carbon Dioxide 24 (22-32) mmol/L BUN 9 (9-20) mg/dL Creatinine 0.80 (0.66-1.25) mg/dL Estimated GFR > 60.0 (>60) mL/min BUN/Creatinine Ratio 11.3 (6-22) Glucose 209 H (70-100) mg/dL Lactate 1.7 (0.7-2.1) mmol/L Calcium 8.9 (8.4-10.2) mg/dL Total Bilirubin 0.6 (0.2-1.3) mg/dL AST 29 (17-59) IU/L ALT 28 (21-72) IU/L Alkaline Phosphatase 108 (38-126) U/L Total Protein 7.1 (6.3-8.2) g/dL Albumin 3.8 (3.5-5.0) g/dL Globulin 3.3 (1.7-4.1) g/dL Albumin/Globulin Ratio 1.2 (1.0-2.8) Procalcitonin (<0.5) ng/mL Urine Color Yellow Urine Appearance Clear Urine pH 5.5 (4.5-8.0) Ur Specific [employer] 1.020 (1.000-1.035) Urine Protein 1+ H (Negative) Urine Glucose (UA) Negative (Negative) g/dL Urine Ketones Trace H (NEGATIVE) Urine Occult Blood Negative (Negative) Urine Nitrate Negative (Negative) Urine Bilirubin Negative (NEGATIVE) Urine Urobilinogen 0.2 (0.2) E.U./dL Ur Leukocyte Esterase Negative (NEGATIVE) Urine RBC None seen (0-5/HPF) Urine WBC None seen (0-5/HPF) Ur Squamous Epith Cells 0-1 /hpf (0-5/HPF) Amorphous Sediment 1+ Urine Bacteria None seen (None) Urine Mucus 1+ H (Negative) Ur Culture Indicated? Cult not indicated Imaging Data CT scan - abdomen: Radiologist's impression: [address] [address] [address] Scan Report Signed Patient: Tirso Rooney JMR#: [id number] : 1970Acct:[id number] Age/Sex: 48 / MDate of Service: 10/09/18 Loc: ED Accession Number: [id number] Procedure: CT abdomen pelvis w con Ordering Provider: Iris Lr CREDIT REPORTER-BC PROCEDURE: CT ABDOMEN PELVIS W CON INDICATIONS: draining fluid from umbilicus TECHNIQUE: After the administration of intravenous contrast, 5 mm thick sections acquired from the diaphragm to the symphysis. 5 mm coronal and sagittal reformats were acquired. For radiation dose reduction, the following was used: automated exposure control, adjustment of mA and/or kV according to patient size. COMPARISON: None. FINDINGS: Image quality: This study is limited by body habitus. Importantly anterior abdominal wall is off of the view of this study. ABDOMEN: Lung bases: Lung bases are clear. Heart size is normal. A small hiatal hernia is incidentally noted. Solid organs: Liver is normal in size and enhancement. Diffuse fatty liver infiltration is noted. Gallbladder wall is not thickened. Biliary system is non dilated. Pancreas enhances normally. Spleen is normal in size and enhancement. No adrenal nodules. Kidneys demonstrate normal size and enhancement, without hydronephrosis. Peritoneum and bowel: Bowel loops demonstrate normal wall thickness and caliber. No free fluid or air. Nodes and vessels: No retroperitoneal or mesenteric adenopathy by size criteria. Aorta and inferior vena cava are normal in size. Miscellaneous: This patient has a large periumbilical hernia, which contains fat and nondilated small bowel. There is thickening seen of the skin along the anterior and inferior portions of the hernia. However, this is incompletely visualized, secondary to body habitus and is outside of the [id number] of the CT study. No focal fluid collections are seen. PELVIS: Genitourinary: Bladder wall thickness is normal. Miscellaneous: No inguinal hernias or adenopathy. Bones: No suspicious bony lesions. No vertebral body compression fractures. Lumbar spine degenerative changes are seen. IMPRESSION: Incompletely seen large periumbilical hernia which contains fat and small bowel. There is skin thickening seen along the anterior aspect of the hernia, which is likely related to cellulitis. No focal drainable abscess can be seen. Incidental note is made of: Small hiatal hernia Fatty liver infiltration Premature lumbar spine degenerative change Dictated by: Jean Marie Cruz M.D. on 10/09/2018 at 15:26 Approved by: Jean Marie Cruz M.D. on 10/09/2018 at 15:30 [facility] Narrative Medical decision making narrative: The patient is a 48-year-old male who presents with chief complaint of leakage from his umbilicus and concerned that is his hernia. He does not have an elevated lactate or procalcitonin, though he has low-grade temperature and a slightly elevated white blood cell count. Given his tachycardia and low-grade temperature, doctor Corbett also evaluated the patient and his hernia. A CT scan was taken to obtain any acute etiologies were hurting his hernia. He does have overlying cellulitis, so I think it is likely that he burst an abscess. Wound culture was taken, he was placed on Keflex and Bactrim after receiving IV Rocephin. I discussed at length return precautions for fever, inability keep down food or fluids etc. Patient was given Toradol for pain, with good result. Given his allergy to contrast dye, he was given Benadryl and Solu-Medrol prior to administration. The patient have no questions or concerns upon discharge. He states he never return precautions and plan on following up with the patient's PCP tomorrow. <Iris Corbett, DO - Last Filed: 10/17/18 07:42> Lab Data Attestation: I reviewed the patient's lab results. Lab Results 10/09/18 10/09/18 10/09/18 Range/Units 14:50 14:50 14:50 WBC 13.4 H (4.5-11.0) X10^3/uL RBC 4.55 (4.5-5.9) X10^6/uL Hgb 13.7 (13.5-17.5) g/dL Hct 40.9 L (41-53) % MCV 89.9 (80-100) fL MCH 30.0 (26-34) PG MCHC 33.4 (30-36) % RDW 13.4 (11.6-14.8) % Plt Count 262 (150-400) X10^3/uL Neut % (Auto) 71.3 (50-75) % Lymph % (Auto) 14.5 L (25-40) % [place] % (Auto) 10.2 (3-14) % Eos % (Auto) 3.1 (2-4) % Baso % (Auto) 0.9 (0-2) % Neut # (Auto) 9600 H (8343-3241) /uL Lymph # (Auto) 1900 (6080-6737) /uL [place] # (Auto) 1400 H (0-900) /uL Eos # (Auto) 400 (0-450) /uL Baso # (Auto) 100 (0-100) /uL PT 13.5 H (10.1-12.7) SECONDS INR 1.2 (0.9-1.3) APTT 28 (26.4-36.2) SECONDS Sodium (137-145) mmol/L Potassium (3.4-5.1) mmol/L Chloride (98-107) mmol/L Carbon Dioxide (22-32) mmol/L BUN (9-20) mg/dL Creatinine (0.66-1.25) mg/dL Estimated GFR (>60) mL/min BUN/Creatinine Ratio (6-22) Glucose (70-100) mg/dL Lactate (0.7-2.1) mmol/L Calcium (8.4-10.2) mg/dL Total Bilirubin (0.2-1.3) mg/dL AST (17-59) IU/L ALT (21-72) IU/L Alkaline Phosphatase (38-126) U/L Total Protein (6.3-8.2) g/dL Albumin (3.5-5.0) g/dL Globulin (1.7-4.1) g/dL Albumin/Globulin Ratio (1.0-2.8) Procalcitonin 0.13 (<0.5) ng/mL Urine Color Urine Appearance Urine pH (4.5-8.0) Ur Specific [employer] (1.000-1.035) Urine Protein (Negative) Urine Glucose (UA) (Negative) g/dL Urine Ketones (NEGATIVE) Urine Occult Blood (Negative) Urine Nitrate (Negative) Urine Bilirubin (NEGATIVE) Urine Urobilinogen (0.2) E.U./dL Ur Leukocyte Esterase (NEGATIVE) Urine RBC (0-5/HPF) Urine WBC (0-5/HPF) Ur Squamous Epith Cells (0-5/HPF) Amorphous Sediment Urine Bacteria (None) Urine Mucus (Negative) Ur Culture Indicated? 10/09/18 10/09/18 10/09/18 Range/Units 14:50 14:50 15:15 WBC (4.5-11.0) X10^3/uL RBC (4.5-5.9) X10^6/uL Hgb (13.5-17.5) g/dL Hct (41-53) % MCV (80-100) fL MCH (26-34) PG MCHC (30-36) % RDW (11.6-14.8) % Plt Count (150-400) X10^3/uL Neut % (Auto) (50-75) % Lymph % (Auto) (25-40) % [place] % (Auto) (3-14) % Eos % (Auto) (2-4) % Baso % (Auto) (0-2) % Neut # (Auto) (7221-7780) /uL Lymph # (Auto) (8943-8580) /uL [place] # (Auto) (0-900) /uL Eos # (Auto) (0-450) /uL Baso # (Auto) (0-100) /uL PT (10.1-12.7) SECONDS INR (0.9-1.3) APTT (26.4-36.2) SECONDS Sodium 133 L (137-145) mmol/L Potassium 4.1 (3.4-5.1) mmol/L Chloride 98 (98-107) mmol/L Carbon Dioxide 24 (22-32) mmol/L BUN 9 (9-20) mg/dL Creatinine 0.80 (0.66-1.25) mg/dL Estimated GFR > 60.0 (>60) mL/min BUN/Creatinine Ratio 11.3 (6-22) Glucose 209 H (70-100) mg/dL Lactate 1.7 (0.7-2.1) mmol/L Calcium 8.9 (8.4-10.2) mg/dL Total Bilirubin 0.6 (0.2-1.3) mg/dL AST 29 (17-59) IU/L ALT 28 (21-72) IU/L Alkaline Phosphatase 108 (38-126) U/L Total Protein 7.1 (6.3-8.2) g/dL Albumin 3.8 (3.5-5.0) g/dL Globulin 3.3 (1.7-4.1) g/dL Albumin/Globulin Ratio 1.2 (1.0-2.8) Procalcitonin (<0.5) ng/mL Urine Color Yellow Urine Appearance Clear Urine pH 5.5 (4.5-8.0) Ur Specific [employer] 1.020 (1.000-1.035) Urine Protein 1+ H (Negative) Urine Glucose (UA) Negative (Negative) g/dL Urine Ketones Trace H (NEGATIVE) Urine Occult Blood Negative (Negative) Urine Nitrate Negative (Negative) Urine Bilirubin Negative (NEGATIVE) Urine Urobilinogen 0.2 (0.2) E.U./dL Ur Leukocyte Esterase Negative (NEGATIVE) Urine RBC None seen (0-5/HPF) Urine WBC None seen (0-5/HPF) Ur Squamous Epith Cells 0-1 /hpf (0-5/HPF) Amorphous Sediment 1+ Urine Bacteria None seen (None) Urine Mucus 1+ H (Negative) Ur Culture Indicated? Cult not indicated Imaging Data CT scan - abdomen: Radiologist's impression: Tirso Rooney Heber Celestin M [address] [address] [address] Scan Report Signed Patient: ToribioTirso JMR#: [id number] : 1970Acct:[id number] Age/Sex: 48 / MDate of Service: 10/09/18 Loc: ED Accession Number: [id number] Procedure: CT abdomen pelvis w con Ordering Provider: Iris Lr CREDIT REPORTER- PROCEDURE: CT ABDOMEN PELVIS W CON INDICATIONS: draining fluid from umbilicus TECHNIQUE: After the administration of intravenous contrast, 5 mm thick sections acquired from the diaphragm to the symphysis. 5 mm coronal and sagittal reformats were acquired. For radiation dose reduction, the following was used: automated exposure control, adjustment of mA and/or kV according to patient size. COMPARISON: None. FINDINGS: Image quality: This study is limited by body habitus. Importantly anterior abdominal wall is off of the view of this study. ABDOMEN: Lung bases: Lung bases are clear. Heart size is normal. A small hiatal hernia is incidentally noted. Solid organs: Liver is normal in size and enhancement. Diffuse fatty liver infiltration is noted. Gallbladder wall is not thickened. Biliary system is non dilated. Pancreas enhances normally. Spleen is normal in size and enhancement. No adrenal nodules. Kidneys demonstrate normal size and enhancement, without hydronephrosis. Peritoneum and bowel: Bowel loops demonstrate normal wall thickness and caliber. No free fluid or air. Nodes and vessels: No retroperitoneal or mesenteric adenopathy by size criteria. Aorta and inferior vena cava are normal in size. Miscellaneous: This patient has a large periumbilical hernia, which contains fat and nondilated small bowel. There is thickening seen of the skin along the anterior and inferior portions of the hernia. However, this is incompletely visualized, secondary to body habitus and is outside of the [id number] of the CT study. No focal fluid collections are seen. PELVIS: Genitourinary: Bladder wall thickness is normal. Miscellaneous: No inguinal hernias or adenopathy. Bones: No suspicious bony lesions. No vertebral body compression fractures. Lumbar spine degenerative changes are seen. IMPRESSION: Incompletely seen large periumbilical hernia which contains fat and small bowel. There is skin thickening seen along the anterior aspect of the hernia, which is likely related to cellulitis. No focal drainable abscess can be seen. Incidental note is made of: Small hiatal hernia Fatty liver infiltration Premature lumbar spine degenerative change Dictated by: Jean Marie Cruz M.D. on 10/09/2018 at 15:26 Approved by: Jean Marie Cruz M.D. on 10/09/2018 at 15:30 [facility] Narrative Medical decision making narrative: Patient does not have any signs of sepsis or intraabdominal infection at this time, does have cellulitis. Plan for antibiotics, follow up and patient to return if not improving. Discharge Plan Departure Patient Disposition: Home Clinical Impression: Cellulitis Qualifiers: Site of cellulitis: trunk Site of cellulitis of trunk: abdominal wall Qualified Code(s): L03.311 - Cellulitis of abdominal wall Abscess of skin or subcutaneous tissue Qualifiers: Site of cutaneous abscess: trunk Site of cutaneous abscess of trunk: umbilicus Qualified Code(s): L02.216 - Cutaneous abscess of umbilicus Discharge Date/Time: 10/09/18 18:44 Interventions: ED Discharge Assessment Last Done: 10/09/18 18:43 Instructions: DI for Cellulitis -- Adult Activity Restrictions/Additional Instructions: Your abdominal CT came back with no problems regarding hernia. However we do have overlying infection. We did get a wound culture, and results should come back in 48-72 hours. If the antibiotics I have selected do not provide cover age, you will get a phone call and new antibiotics will be called in. Please monitor for fevers, inability keep down fluids or any acute changes. Please follow up with primary care provider in the next few days. If you are unable to keep down fluids, have high fevers or have any acute concerns please come back to the emergency department. Please follow up with your PCP as soon as able. I have given you to antibiotics. Keflex and Bactrim to provide optimal antibiotic coverage. I have given her a prescription of Toradol for pain. Do not combine it with ibuprofen Aleve or any other NSAIDs. Prescriptions: New sulfamethoxazole-trimethoprim [Bactrim DS] 800-160 mg tablet 1 tab PO BID Qty: 20 RF: 0 cephalexin [Keflex] 500 mg capsule 500 mg PO QID 10 Days Qty: 40 RF: 0 Referrals: Imelda Velázquez [Non-Staff] - <Iris Corbett DO - Last Filed: 10/17/18 07:42> Cosign ED Attending Cosignature Attestation: I was immediately available in the department for consultation, case was discussed and patient was evaluated by myself. This documentation has been reviewed and I agree with assessment and plan. Supervised by Iris Corbett DO
[2018-10-09 15:05] LABS: Add Manual Diff / Slide Review NO; Basophils Absolute Auto 100 /uL (0-100); Basophils Percent Auto 0.9 % (0-2); Eosinophils Absolute Auto 400 /uL (0-450); Eosinophils Percent Auto 3.1 % (2-4); Hematocrit 40.9 % (41-53); Hemoglobin 13.7 g/dL (13.5-17.5); Lymphocytes Absolute Auto 1900 /uL (1100-4500); Lymphocytes Percent Auto 14.5 % (25-40); Mean Corpuscular HGB Conc 33.4 % (30-36); Mean Corpuscular Volume 89.9 fL (80-100); Monocytes Absolute Auto 1400 /uL (0-900); Monocytes Percent Auto 10.2 % (3-14); Neutrophils Absolute Auto 9600 /uL (1500-7000); Neutrophils Percent Auto 71.3 % (50-75); Platelet Count 262 X10^3/uL (150-400); Red Blood Cell Count 4.55 X10^6/uL (4.5-5.9); Red Cell Distribution Width 13.4 % (11.6-14.8); White Blood Cell Count 13.4 X10^3/uL (4.5-11.0)
[2018-10-09 15:10] LABS: INR 1.2 (0.9-1.3); Prothrombin Time 13.5 SECONDS (10.1-12.7)
[2018-10-09 15:12] LABS: PTT Partial Thromboplastin Tim 28 SECONDS (26.4-36.2)
[2018-10-09 15:15] LABS: Alanine Aminotransferase 28 IU/L (21-72); Albumin 3.8 g/dL (3.5-5.0); Albumin Globulin Ratio 1.2 (1.0-2.8); Alkaline Phosphatase 108 U/L (38-126); Aspartate Aminotransferase 29 IU/L (17-59); BUN Creatinine Ratio 11.3 (6-22); Bilirubin Total 0.6 mg/dL (0.2-1.3); Blood Urea Nitrogen 9 mg/dL (9-20); Calcium 8.9 mg/dL (8.4-10.2); Carbon Dioxide 24 mmol/L (22-32); Chloride 98 mmol/L (98-107); Estimated Glomerular Filt Rate > 60.0 mL/min (>60); Globulin 3.3 g/dL (1.7-4.1); Glucose 209 mg/dL (70-100); HEMOLYSIS < 15 (0-50); Potassium 4.1 mmol/L (3.4-5.1); Sodium 133 mmol/L (137-145); Total Protein 7.1 g/dL (6.3-8.2)
[2018-10-09 15:16] LABS: Lactate (Lactic Acid) 1.7 mmol/L (0.7-2.1)
[2018-10-09] MEDS: SODIUM CHLORIDE 0.9% 1,000 ML 1000 ML IV (15:23)
[2018-10-09] MEDS: methylPREDNISolone 125 MG/2 ML VIAL IV (15:23)
[2018-10-09] MEDS: diphenhydrAMINE 50 MG/ML VIAL IV (15:23)
[2018-10-09 15:30] LABS: Procalcitonin 0.13 ng/mL (<0.5)
[2018-10-09 15:42] LABS: Bacteria Urine None Seen; RBC Urine None Seen (0-5/HPF); WBC Urine None Seen (0-5/HPF)
[2018-10-09 15:44] LABS: Appearance Urine UA CLEAR; Bilirubin Urine UA NEGATIVE (NEGATIVE); Color Urine UA YELLOW; Glucose Urine UA NEGATIVE (Negative); Ketones Urine UA TRACE (NEGATIVE); Leukocyte Esterase Urine UA NEGATIVE (NEGATIVE); Nitrite Urine UA NEGATIVE (Negative); Occult Blood Urine UA NEGATIVE (Negative); Protein Urine UA 1+ (Negative); Urobilinogen Urine UA 0.2 E.U./dL (0.2); pH Urine UA 5.5 (4.5-8.0)
[2018-10-09 15:51] LABS: Amorphous Sediment Urine 1+; Culture Indicated Urine Cult Not Indicated; Mucus Urine 1+ (Negative); Squamous Epithelial Cell Urine 0-1 /HPF (0-5/HPF)
[2018-10-09 17:00] VITALS: BP 113/71; PULSE 99; RESP 11; O2SAT 95
[2018-10-09] MEDS: CEFTRIAXONE 2 GM/50 ML FROZ.PIGGY IV (17:27)
[2018-10-09] MEDS: KETOROLAC 60 MG/2 ML VIAL 30 MG IV (17:41)
[2018-10-09] MEDS: TRIMETH/SULFA 160/800 (DS) TABLET 1 TAB PO (18:17)
[2018-10-09 18:18] VITALS: BP 142/84; PULSE 63; RESP 18; O2SAT 93
[2018-10-09 18:29] VITALS: BP 148/93; PULSE 98; RESP 16; O2SAT 94
== END 2018-10-09 18:44 | disposition home or self-care (01) ==
PROVIDERS: Emergency Provider Nurse Practitioner Family
DX: L03.311 Cellulitis of abdominal wall (principal); L02.216 Cutaneous abscess of umbilicus
CPT/HCPCS: 36415; 36591; 74177; 80053; 81001; 83605; 84145; 85025; 85610; 85730; 87040; 87070; 87075; 87077; 87147; 87205; 96361; 96374; 96375; 99283; 99284; J0696; J1200; J1885; J2930; Q9967

== ENCOUNTER 2019-09-26 14:40 | Inpatient (IN) | payer OTHER, SELFPAY ==
[2019-09-26 14:53] VITALS: BP 177/100; PULSE 100; RESP 15; TEMP 35.7; O2SAT 95
--- NOTE | 2019-09-26 15:09 | DI.RAD.S_ITS ---
PROCEDURE: XR ACUTE ABDOMEN SERIES INDICATIONS: abd pain, shortness of breath TECHNIQUE: One view chest and two views of the abdomen were acquired. COMPARISON: None. FINDINGS: Surgical changes and devices: None. Chest: Lungs are clear. Heart size is normal. No pleural effusions. No pneumoperitoneum. Abdomen: Bowel gas pattern is normal except for 2 adjacent abnormally prominent gas-filled small bowel loops with differential air fluid levels at and to the left of midline at the midabdomen level.. No suspicious calcifications. Visualized solid organ contours appear normal. Bones: No suspicious bony lesions. IMPRESSION: Small bowel gas distention over the midabdomen is present, at differential levels, in a pattern suggestive of early small bowel obstruction. No free air seen. CT scanning may be warranted given this appearance. Dictated by: Venkata Soares M.D. on 09/26/2019 at 16:37 Approved by: Venkata Soares M.D. on 09/26/2019 at 16:57
--- NOTE | 2019-09-26 15:16 | ED.ABDPAIN ---
HPI - Abdominal Pain <THIERRY Vasquez - Last Filed: 09/26/19 20:21> General Chief Complaint: Abdominal Pain Stated Complaint: abdominal pain/vomiting Time Seen by Provider: 09/26/19 14:58 Source: patient and family Mode of arrival: Ambulatory Limitations: no limitations History of Present Illness HPI narrative: The patient is a 49-year- male nonsmoker, morbidly obese who presents with a chief complaint of abdominal pain and inability keep down food or fluids. He states that he has had lower abdominal pain, cannot differentiate which side since 10:00 a.m. yesterday. He does have a history of a large hernia, which has not been prepared. Last bowel movement was yesterday and normal. He has not taken anything to feel better as he cannot keep anything down. Denies any dysuria urgency or frequency. His notes that his blood sugars have been in the 250s which is high for him. he states the pain is a 10/10. He also states that he has had some elephant sitting on my chest on and off for the past few days, as well as shortness of breath. he last tried to eat yesterday at 7:00 p.m. and has not had anything since. Related Data Home Medications Medication Instructions Recorded Confirmed gabapentin 600 mg PO BID 09/26/19 09/26/19 glipizide 10 mg PO BID 09/26/19 09/26/19 levothyroxine 125 mcg PO BID 09/26/19 09/26/19 lisinopril 10 mg PO DAILY 09/26/19 09/26/19 loratadine 10 mg PO DAILY 09/26/19 09/26/19 magnesium oxide 420 mg PO BID 09/26/19 09/26/19 metoprolol tartrate 25 mg PO BID 09/26/19 09/26/19 omeprazole 20 mg PO DAILY 09/26/19 09/26/19 semaglutide [Ozempic] 0.25 mg SUBCUT QWEEK 09/26/19 09/26/19 Allergies Allergy/AdvReac Type Severity Reaction Status Date / Time Iodinated Contrast Media Allergy Verified 10/09/18 17:19 Review of Systems <THIERRY Vasquez - Last Filed: 09/26/19 20:21> Review of Systems Narrative: GENERAL: see HPI HEENT: Denies sinus pain, ear pain, sore throat, difficulty swallowing, dizziness. RESPIRATORY: Denies dyspnea, cough, wheezing, hemoptysis, sputum. CARDIOVASCULAR: Denies chest pain, palpitations, orthopnea, edema, GASTROINTESTINAL: see HPI : Denies dysuria, frequency, incontinence, hematuria, urinary retention. MUSCULOSKELETAL: denies weakness, joint pain, or bony pain SKIN: Denies rash, skin lesions, or other NEUROLOGIC: Denies weakness, headache, numbness, change in speech, confusion, seizures, incoordination. PSYCHIATRIC: No concerning psychosocial issues. 12 point review of systems is negative except for those stated above Patient History <IrisNICOLE Nguyễn- - Last Filed: 09/26/19 20:21> Medical History (Updated 09/26/19 @ 20:31 by Raj Augustine MD) Diabetes (Acute) GERD (gastroesophageal reflux disease) (Acute) Hernia, umbilical (Acute) Hypertension (Acute) Hypothyroidism (Acute) Morbid obesity (Acute) Social History Smoking Status: Never smoker Smoking Status: Never smoker alcohol intake frequency: a few times a month Substance Use Type: does not use Exam <NICOLE Vasquez- - Last Filed: 09/26/19 20:21> Narrative Exam Narrative: GENERAL: morbidly obese male lying on side on stretcher with vomit bag HEAD: Atraumatic. Normocephalic. No temporal or scalp tenderness. EYES: Pupils equal round and reactive. Extraocular motions intact. No scleral icterus. No injection or drainage. ENT: Nose without bleeding, purulent drainage or septal hematoma. Throat without erythema, tonsillar hypertrophy or exudate. Uvula midline. Airway patent. NECK: Trachea midline. No JVD or lymphadenopathy. Supple, nontender, no meningeal signs. CARDIOVASCULAR: Regular rate and rhythm RESPIRATORY: Clear to auscultation. Breath sounds equal bilaterally. No wheezes, rales, or rhonchi. no cough. No increased respiratory effort. No accessory muscle use. Speaking full sentences. GASTROINTESTINAL: Abdomen soft, diffusely tender, active bowel sounds, nondistended. No hepato-splenomegaly, or palpable masses. palpable umbilical hernia, soft to palpation EXTREMITIES: No clubbing, cyanosis, or edema. No joint tenderness, effusion, or edema noted. BACK: Nontender without deformity or crepitance. No flank tenderness. NEURO: AOx3. SKIN: No rash or erythema on visible skin Initial Vital Signs Initial Vital Signs: Vital Signs Temperature 96.2 F L 09/26/19 14:53 Pulse Rate 100 H 09/26/19 14:53 Respiratory Rate 15 09/26/19 14:53 Blood Pressure 177/100 H 09/26/19 14:53 Pulse Oximetry 95 09/26/19 14:53 <Thom Chacko DO - Last Filed: 09/26/19 22:28> Initial Vital Signs Initial Vital Signs: Vital Signs Temperature 96.2 F L 09/26/19 14:53 Pulse Rate 100 H 09/26/19 14:53 Respiratory Rate 15 09/26/19 14:53 Blood Pressure 177/100 H 09/26/19 14:53 Pulse Oximetry 95 09/26/19 14:53 Course <TERESITA VasquezBC - Last Filed: 09/26/19 20:21> Orders Ordered: ED Orders 09/26/19 15:09 XR acute abdomen series Stat 09/26/19 15:23 EKG-12 Lead Stat 09/26/19 15:50 Amylase Stat Complete Blood Count AUTO DIFF Stat Comprehensive Metabolic Panel Stat Lactate (Lactic Acid) Stat Lipase Stat Partial Thromboplastin Time Stat Procalcitonin Stat Prothrombin Time INR Stat Troponin & CK Cardiac Panel Stat 09/26/19 16:59 CT abdomen pelvis w con Stat 09/26/19 19:30 Urine Microscopic Stat Lactated Ringer's (Lactated Ringers) 1,000 mls @ 200 mls/hr IV CONT EMMIE Last Admin: 09/26/19 20:35 Dose: 200 mls/hr Documented by: Infusion: 09/26/19 20:35 Dose: 200 mls/hr Documented by: Infusion: 09/26/19 20:31 Dose: 200 mls/hr Documented by: Admin: 09/26/19 19:33 Dose: 200 mls/hr Documented by: GABY Lactated Ringer's (Lactated Ringers) 1,000 mls @ 42 mls/hr IV CONT EMMIE Morphine Sulfate (Morphine) 0 mg IV Q5M PRN PRN Reason: Pain, Moderate (4-6) Morphine Sulfate (Morphine) 0 mg IV Q5M PRN PRN Reason: Pain, Mild (1-3) Morphine Sulfate (Morphine) 0 mg IV Q5M PRN PRN Reason: Pain, Severe (7-10) Discontinued Medications Bupivacaine HCl (Sensorcaine 0.5% (Pf)) 30 ml INJ INTRA-OP ONE Stop: 09/26/19 21:32 Last Admin: 09/26/19 21:31 Dose: 30 ml Documented by: ABRAHAM Diphenhydramine HCl (Benadryl) 50 mg IV NOW ONE Stop: 09/26/19 17:00 Last Admin: 09/26/19 17:17 Dose: 50 mg Documented by: MICHA Sodium Chloride (Normal Saline 0.9%) 1,000 mls @ 125 mls/hr IV CONT EMMIE Last Infusion: 09/26/19 19:17 Dose: 0 mls/hr Documented by: Infusion: 09/26/19 18:21 Dose: 1,000 mls/hr Documented by: Infusion: 09/26/19 17:40 Dose: 0 mls/hr Documented by: Infusion: 09/26/19 17:23 Dose: 1,000 mls/hr Documented by: Admin: 09/26/19 15:39 Dose: 125 mls/hr Documented by: VENTURA Sodium Chloride (Normal Saline 0.9%) 500 mls @ 1,000 mls/hr IV BOLUS ONE Stop: 09/26/19 19:06 Last Admin: 09/26/19 19:28 Dose: Not Given Documented by: ANNIE Cefazolin Sodium/Dextrose (Ancef) 2 gm in 100 mls @ 200 mls/hr IV NOW ONE Stop: 09/26/19 21:54 Last Infusion: 09/26/19 20:55 Dose: 0 mls/hr Documented by: Admin: 09/26/19 20:45 Dose: 200 mls/hr Documented by: NO Cefazolin Sodium/Dextrose (Ancef) 1 gm in 50 mls @ 200 mls/hr IV NOW ONE Stop: 09/26/19 21:39 Last Infusion: 09/26/19 21:26 Dose: 0 mls/hr Documented by: Admin: 09/26/19 21:26 Dose: 200 mls/hr Documented by: NO Insulin Aspart (Novolog) 5 unit IV NOW ONE Stop: 09/26/19 19:00 Last Admin: 09/26/19 19:10 Dose: 5 unit Documented by: MICHA Cosigned by: KAYA Insulin Human Regular (Humulin R) 4 unit SUBCUT NOW ONE Stop: 09/26/19 21:29 Last Admin: 09/26/19 21:28 Dose: 4 unit Documented by: KIRTI Bhagatigned by: MATHEW Methylprednisolone (Solu-Medrol 125 Mg Vial) 125 mg IV NOW ONE Stop: 09/26/19 17:00 Last Admin: 09/26/19 17:16 Dose: 125 mg Documented by: MICHA Morphine Sulfate (Morphine) 4 mg IV NOW ONE Stop: 09/26/19 15:10 Last Admin: 09/26/19 15:38 Dose: 4 mg Documented by: VENTURA Morphine Sulfate (Morphine) 4 mg IV NOW ONE Stop: 09/26/19 16:51 Last Admin: 09/26/19 17:16 Dose: 4 mg Documented by: MICHA Ondansetron HCl (Zofran) 4 mg IV NOW ONE Stop: 09/26/19 15:10 Last Admin: 09/26/19 15:38 Dose: 4 mg Documented by: VENTURA Ondansetron HCl (Zofran) 4 mg IV NOW ONE Stop: 09/26/19 16:51 Last Admin: 09/26/19 17:16 Dose: 4 mg Documented by: MICHA Vital Signs Vital signs: Vital Signs - 8 hr 09/26/19 14:53 09/26/19 18:54 Temperature 96.2 F L Pulse Rate 100 H 96 H Respiratory Rate 15 18 Blood Pressure 177/100 H Blood Pressure [Right Arm] 142/81 H Pulse Oximetry 95 97 <Thom Chacko, - Last Filed: 09/26/19 22:28> Orders Ordered: ED Orders 09/26/19 15:09 XR acute abdomen series Stat 09/26/19 15:23 EKG-12 Lead Stat 09/26/19 15:50 Amylase Stat Complete Blood Count AUTO DIFF Stat Comprehensive Metabolic Panel Stat Lactate (Lactic Acid) Stat Lipase Stat Partial Thromboplastin Time Stat Procalcitonin Stat Prothrombin Time INR Stat Troponin & CK Cardiac Panel Stat 09/26/19 16:59 CT abdomen pelvis w con Stat 09/26/19 19:30 Urine Microscopic Stat Lactated Ringer's (Lactated Ringers) 1,000 mls @ 200 mls/hr IV CONT EMMIE Last Admin: 09/26/19 20:35 Dose: 200 mls/hr Documented by: Infusion: 09/26/19 20:35 Dose: 200 mls/hr Documented by: Infusion: 09/26/19 20:31 Dose: 200 mls/hr Documented by: Admin: 09/26/19 19:33 Dose: 200 mls/hr Documented by: GABY Lactated Ringer's (Lactated Ringers) 1,000 mls @ 42 mls/hr IV CONT EMMIE Morphine Sulfate (Morphine) 0 mg IV Q5M PRN PRN Reason: Pain, Moderate (4-6) Morphine Sulfate (Morphine) 0 mg IV Q5M PRN PRN Reason: Pain, Mild (1-3) Morphine Sulfate (Morphine) 0 mg IV Q5M PRN PRN Reason: Pain, Severe (7-10) Discontinued Medications Bupivacaine HCl (Sensorcaine 0.5% (Pf)) 30 ml INJ INTRA-OP ONE Stop: 09/26/19 21:32 Last Admin: 09/26/19 21:31 Dose: 30 ml Documented by: ABRAHAM Diphenhydramine HCl (Benadryl) 50 mg IV NOW ONE Stop: 09/26/19 17:00 Last Admin: 09/26/19 17:17 Dose: 50 mg Documented by: MICHA Sodium Chloride (Normal Saline 0.9%) 1,000 mls @ 125 mls/hr IV CONT EMMIE Last Infusion: 09/26/19 19:17 Dose: 0 mls/hr Documented by: Infusion: 09/26/19 18:21 Dose: 1,000 mls/hr Documented by: Infusion: 09/26/19 17:40 Dose: 0 mls/hr Documented by: Infusion: 09/26/19 17:23 Dose: 1,000 mls/hr Documented by: Admin: 09/26/19 15:39 Dose: 125 mls/hr Documented by: VENTURA Sodium Chloride (Normal Saline 0.9%) 500 mls @ 1,000 mls/hr IV BOLUS ONE Stop: 09/26/19 19:06 Last Admin: 09/26/19 19:28 Dose: Not Given Documented by: ANNIE Cefazolin Sodium/Dextrose (Ancef) 2 gm in 100 mls @ 200 mls/hr IV NOW ONE Stop: 09/26/19 21:54 Last Infusion: 09/26/19 20:55 Dose: 0 mls/hr Documented by: Admin: 09/26/19 20:45 Dose: 200 mls/hr Documented by: NO Cefazolin Sodium/Dextrose (Ancef) 1 gm in 50 mls @ 200 mls/hr IV NOW ONE Stop: 09/26/19 21:39 Last Infusion: 09/26/19 21:26 Dose: 0 mls/hr Documented by: Admin: 09/26/19 21:26 Dose: 200 mls/hr Documented by: NO Insulin Aspart (Novolog) 5 unit IV NOW ONE Stop: 09/26/19 19:00 Last Admin: 09/26/19 19:10 Dose: 5 unit Documented by: MICHA Cosigned by: KAYA Insulin Human Regular (Humulin R) 4 unit SUBCUT NOW ONE Stop: 09/26/19 21:29 Last Admin: 09/26/19 21:28 Dose: 4 unit Documented by: KIRTI Cosigned by: MELIZAUNEVER Methylprednisolone (Solu-Medrol 125 Mg Vial) 125 mg IV NOW ONE Stop: 09/26/19 17:00 Last Admin: 09/26/19 17:16 Dose: 125 mg Documented by: MICHA Morphine Sulfate (Morphine) 4 mg IV NOW ONE Stop: 09/26/19 15:10 Last Admin: 09/26/19 15:38 Dose: 4 mg Documented by: VENTURA Morphine Sulfate (Morphine) 4 mg IV NOW ONE Stop: 09/26/19 16:51 Last Admin: 09/26/19 17:16 Dose: 4 mg Documented by: MICHA Ondansetron HCl (Zofran) 4 mg IV NOW ONE Stop: 09/26/19 15:10 Last Admin: 09/26/19 15:38 Dose: 4 mg Documented by: VENTURA Ondansetron HCl (Zofran) 4 mg IV NOW ONE Stop: 09/26/19 16:51 Last Admin: 09/26/19 17:16 Dose: 4 mg Documented by: MICHA Vital Signs Vital signs: Vital Signs - 8 hr 09/26/19 14:53 09/26/19 18:54 Temperature 96.2 F L Pulse Rate 100 H 96 H Respiratory Rate 15 18 Blood Pressure 177/100 H Blood Pressure [Right Arm] 142/81 H Pulse Oximetry 95 97 MDM - Abdominal Pain <Iris LrCLAUDIAP-BC - Last Filed: 09/26/19 20:21> Lab Data Result diagrams: 09/26/19 15:50 09/26/19 15:50 Labs: Lab Results 09/26/19 09/26/19 09/26/19 Range/Units 15:50 15:50 15:50 WBC 9.3 (4.5-11.0) X10^3/uL RBC 5.03 (4.5-5.9) X10^6/uL Hgb 15.4 (13.5-17.5) g/dL Hct 44.9 (41-53) % MCV 89.4 (80-100) fL MCH 30.7 (26-34) PG MCHC 34.3 (30-36) % RDW 14.6 (11.6-14.8) % Plt Count 215 (150-400) X10^3/uL Neut % (Auto) 75.9 H (50-75) % Lymph % (Auto) 15.1 L (25-40) % [place] % (Auto) 7.5 (3-14) % Eos % (Auto) 0.9 L (2-4) % Baso % (Auto) 0.6 (0-2) % Neut # (Auto) 7000 (5487-7668) /uL Lymph # (Auto) 1400 (2034-9565) /uL [place] # (Auto) 700 (0-900) /uL Eos # (Auto) 100 (0-450) /uL Baso # (Auto) 100 (0-100) /uL PT 12.6 (10.1-12.7) SECONDS INR 1.1 (0.9-1.3) APTT 31 D (26.4-36.2) SECONDS Sodium 134 L (137-145) mmol/L Potassium 4.3 (3.4-5.1) mmol/L Chloride 98 (98-107) mmol/L Carbon Dioxide 25 (22-32) mmol/L BUN 7 L (9-20) mg/dL Creatinine 0.73 (0.66-1.25) mg/dL Estimated GFR > 60.0 (>60) mL/min BUN/Creatinine Ratio 9.6 (6-22) Glucose 312 H (70-100) mg/dL Lactate (0.7-2.1) mmol/L Calcium 9.9 (8.4-10.2) mg/dL Total Bilirubin 0.6 (0.2-1.3) mg/dL AST 56 (17-59) IU/L ALT 33 (<50) IU/L Alkaline Phosphatase 116 (38-126) U/L Total Creatine Kinase 171 H (55-170) U/L CK-MB (CK-2) 3.62 H (<2.37) ng/mL CK-MB (CK-2) Rel Index 2.1 (1.5-5.0) % Troponin I < 0.012 (0.01-0.034) ng/mL Total Protein 7.6 (6.3-8.2) g/dL Albumin 4.3 (3.5-5.0) g/dL Globulin 3.3 (1.7-4.1) g/dL Albumin/Globulin Ratio 1.3 (1.0-2.8) Amylase 69 (30-110) U/L Lipase 415 H (23-300) U/L Procalcitonin (<0.5) ng/mL Urine RBC (0-5/HPF) Urine WBC (0-5/HPF) Ur Squamous Epith Cells (0-5/HPF) Urine Bacteria (None) Ur Culture Indicated? 09/26/19 09/26/19 09/26/19 Range/Units 15:50 15:50 18:12 WBC (4.5-11.0) X10^3/uL RBC (4.5-5.9) X10^6/uL Hgb (13.5-17.5) g/dL Hct (41-53) % MCV (80-100) fL MCH (26-34) PG MCHC (30-36) % RDW (11.6-14.8) % Plt Count (150-400) X10^3/uL Neut % (Auto) (50-75) % Lymph % (Auto) (25-40) % [place] % (Auto) (3-14) % Eos % (Auto) (2-4) % Baso % (Auto) (0-2) % Neut # (Auto) (2309-4742) /uL Lymph # (Auto) (0326-2411) /uL [place] # (Auto) (0-900) /uL Eos # (Auto) (0-450) /uL Baso # (Auto) (0-100) /uL PT (10.1-12.7) SECONDS INR (0.9-1.3) APTT (26.4-36.2) SECONDS Sodium (137-145) mmol/L Potassium (3.4-5.1) mmol/L Chloride (98-107) mmol/L Carbon Dioxide (22-32) mmol/L BUN (9-20) mg/dL Creatinine (0.66-1.25) mg/dL Estimated GFR (>60) mL/min BUN/Creatinine Ratio (6-22) Glucose (70-100) mg/dL Lactate 3.1 H 2.5 H (0.7-2.1) mmol/L Calcium (8.4-10.2) mg/dL Total Bilirubin (0.2-1.3) mg/dL AST (17-59) IU/L ALT (<50) IU/L Alkaline Phosphatase (38-126) U/L Total Creatine Kinase (55-170) U/L CK-MB (CK-2) (<2.37) ng/mL CK-MB (CK-2) Rel Index (1.5-5.0) % Troponin I (0.01-0.034) ng/mL Total Protein (6.3-8.2) g/dL Albumin (3.5-5.0) g/dL Globulin (1.7-4.1) g/dL Albumin/Globulin Ratio (1.0-2.8) Amylase (30-110) U/L Lipase (23-300) U/L Procalcitonin < 0.05 (<0.5) ng/mL Urine RBC (0-5/HPF) Urine WBC (0-5/HPF) Ur Squamous Epith Cells (0-5/HPF) Urine Bacteria (None) Ur Culture Indicated? 09/26/19 Range/Units 19:30 WBC (4.5-11.0) X10^3/uL RBC (4.5-5.9) X10^6/uL Hgb (13.5-17.5) g/dL Hct (41-53) % MCV (80-100) fL MCH (26-34) PG MCHC (30-36) % RDW (11.6-14.8) % Plt Count (150-400) X10^3/uL Neut % (Auto) (50-75) % Lymph % (Auto) (25-40) % [place] % (Auto) (3-14) % Eos % (Auto) (2-4) % Baso % (Auto) (0-2) % Neut # (Auto) (9130-7421) /uL Lymph # (Auto) (8316-3237) /uL [place] # (Auto) (0-900) /uL Eos # (Auto) (0-450) /uL Baso # (Auto) (0-100) /uL PT (10.1-12.7) SECONDS INR (0.9-1.3) APTT (26.4-36.2) SECONDS Sodium (137-145) mmol/L Potassium (3.4-5.1) mmol/L Chloride (98-107) mmol/L Carbon Dioxide (22-32) mmol/L BUN (9-20) mg/dL Creatinine (0.66-1.25) mg/dL Estimated GFR (>60) mL/min BUN/Creatinine Ratio (6-22) Glucose (70-100) mg/dL Lactate (0.7-2.1) mmol/L Calcium (8.4-10.2) mg/dL Total Bilirubin (0.2-1.3) mg/dL AST (17-59) IU/L ALT (<50) IU/L Alkaline Phosphatase (38-126) U/L Total Creatine Kinase (55-170) U/L CK-MB (CK-2) (<2.37) ng/mL CK-MB (CK-2) Rel Index (1.5-5.0) % Troponin I (0.01-0.034) ng/mL Total Protein (6.3-8.2) g/dL Albumin (3.5-5.0) g/dL Globulin (1.7-4.1) g/dL Albumin/Globulin Ratio (1.0-2.8) Amylase (30-110) U/L Lipase (23-300) U/L Procalcitonin (<0.5) ng/mL Urine RBC 0-1/hpf (0-5/HPF) Urine WBC 0-1/hpf (0-5/HPF) Ur Squamous Epith Cells None seen (0-5/HPF) Urine Bacteria None seen (None) Ur Culture Indicated? Cult not indicated Point of care testing: Point of Care Testing Glucose POC 268 Urine Dip Bedside Urine Glucose 500 mg/dl Bedside Urine Bilirubin - Negative Bedside Urine Ketone ++ 40 Urine Specific [place] 1.015 Bedside Urine Occult Blood - Negative Bedside Urine pH 6.0 Bedside Urine Protein +++ 300 Bedside Urine Urobilinogen +/- 1mg Bedside Urine Nitrite - Negative Bedside Urine Leukocytes - Negative Esterase Imaging Data Abdominal x-ray: Radiologist's Impression: [address] [place] [id number] XRay Report Signed Patient: Tirso Rooney JMR#: [id number] : 1970Acct:[id number] Age/Sex: 49 / MDate of Service: 09/26/19 Loc: ED Accession Number: [id number] Procedure: XR acute abdomen series Ordering Provider: Iris Lr- PROCEDURE: XR ACUTE ABDOMEN SERIES INDICATIONS: abd pain, shortness of breath TECHNIQUE: One view chest and two views of the abdomen were acquired. COMPARISON: None. FINDINGS: Surgical changes and devices: None. Chest: Lungs are clear. Heart size is normal. No pleural effusions. No pneumoperitoneum. Abdomen: Bowel gas pattern is normal except for 2 adjacent abnormally prominent gas-filled small bowel loops with differential air fluid levels at and to the left of midline at the midabdomen level.. No suspicious calcifications. Visualized solid organ contours appear normal. Bones: No suspicious bony lesions. IMPRESSION: Small bowel gas distention over the midabdomen is present, at differential levels, in a pattern suggestive of early small bowel obstruction. No free air seen. CT scanning may be warranted given this appearance. Dictated by: Venkata Soares M.D. on 09/26/2019 at 16:37 Approved by: Venkata Soares M.D. on 09/26/2019 at 16:57 CT scan - abdomen/pelvis: Radiologist's Impression: [address] [place], [place] [id number] CT Scan Report Signed Patient: Tirso Rooney JMR#: [id number] : 1970Acct:[id number] Age/Sex: 49 / MDate of Service: 09/26/19 Loc: ED Accession Number: [id number] Procedure: CT abdomen pelvis w con Ordering Provider: Iris Lr WINDOWS APPLICATION ADMINISTRATOR- PROCEDURE: CT ABDOMEN PELVIS W CON INDICATIONS: abd pain, hernia TECHNIQUE: After the administration of intravenous contrast, 5 mm thick sections acquired from the diaphragm to the symphysis. 5 mm coronal and sagittal reformats were acquired. For radiation dose reduction, the following was used: automated exposure control, adjustment of mA and/or kV according to patient size. The patient was premedicated for an iodine allergy. No immediate contrast reaction was recorded. COMPARISON: [facility], CT, CT ABDOMEN PELVIS W CON, 10/09/2018, 15:53. FINDINGS: Image quality: Excellent. ABDOMEN: Lung bases: Lung bases are clear. Heart size is normal. A small hiatal hernia is incidentally noted. Solid organs: Liver is normal in size and enhancement. Diffuse fatty liver infiltration is noted. Gallbladder wall does not appear thickened. Biliary system is non dilated. Pancreas enhances normally. Spleen is normal in size and enhancement. No adrenal nodules. Kidneys demonstrate normal size and enhancement, without hydronephrosis. Peritoneum and bowel: There is a pannus hernia, which contains one loop of dilated small bowel that measures up to 3.7 cm. Additional dilated small bowel can be seen proximally. There is a transition point seen is seen is a dilated loop enters the hernia and becomes decompressed at the hernia orifice. The small bowel loops are decompressed distal to this point. No significant colonic abnormality is seen. No free air or significant free fluid can be seen. Nodes and vessels: No retroperitoneal or mesenteric adenopathy by size criteria. Aorta and inferior vena cava are normal in size. Miscellaneous: PELVIS: Genitourinary: Bladder wall thickness is normal. Miscellaneous: No inguinal hernias or adenopathy. Bones: No suspicious bony lesions. No vertebral body compression fractures. Age-appropriate bony degenerative changes are seen. IMPRESSION: Enlarging pannus hernia, with a transition point a small bowel obstruction seen at entry point to this hernia. Incidental note is made of: Small hiatal hernia Diffuse fatty liver infiltration Note: Case discussed by telephone with Iris Lr at 1702 hrs. [place] time on September 26, 2019. Dictated by: Jean Marie Cruz M.D. on 09/26/2019 at 16:55 Approved by: Jean Marie Cruz M.D. on 09/26/2019 at 17:03 [facility] Narrative Medical decision making narrative: The patient is a 49-year-old male who presents with a chief complaint of abdominal pain, nausea and vomiting. His imaging as above is concerning for small-bowel obstruction. He has slight leukocytosis, elevated lactate at 3.1, which came down to 2.5 with a L fluid. I spoke with Dr. Augustine, who requested 5 units IV insulin and was given. He came in to evaluate the patient and ended up taking the patient to surgery. Patient and were in accordance. They concur that he has not had anything to eat or drink since last night. Patient will go to OR and states understanding. <Thom Chacko, DO - Last Filed: 09/26/19 22:28> Lab Data Labs: Lab Results 09/26/19 09/26/19 09/26/19 Range/Units 15:50 15:50 15:50 WBC 9.3 (4.5-11.0) X10^3/uL RBC 5.03 (4.5-5.9) X10^6/uL Hgb 15.4 (13.5-17.5) g/dL Hct 44.9 (41-53) % MCV 89.4 (80-100) fL MCH 30.7 (26-34) PG MCHC 34.3 (30-36) % RDW 14.6 (11.6-14.8) % Plt Count 215 (150-400) X10^3/uL Neut % (Auto) 75.9 H (50-75) % Lymph % (Auto) 15.1 L (25-40) % [place] % (Auto) 7.5 (3-14) % Eos % (Auto) 0.9 L (2-4) % Baso % (Auto) 0.6 (0-2) % Neut # (Auto) 7000 (8481-1168) /uL Lymph # (Auto) 1400 (1034-4357) /uL [place] # (Auto) 700 (0-900) /uL Eos # (Auto) 100 (0-450) /uL Baso # (Auto) 100 (0-100) /uL PT 12.6 (10.1-12.7) SECONDS INR 1.1 (0.9-1.3) APTT 31 D (26.4-36.2) SECONDS Sodium 134 L (137-145) mmol/L Potassium 4.3 (3.4-5.1) mmol/L Chloride 98 (98-107) mmol/L Carbon Dioxide 25 (22-32) mmol/L BUN 7 L (9-20) mg/dL Creatinine 0.73 (0.66-1.25) mg/dL Estimated GFR > 60.0 (>60) mL/min BUN/Creatinine Ratio 9.6 (6-22) Glucose 312 H (70-100) mg/dL Lactate (0.7-2.1) mmol/L Calcium 9.9 (8.4-10.2) mg/dL Total Bilirubin 0.6 (0.2-1.3) mg/dL AST 56 (17-59) IU/L ALT 33 (<50) IU/L Alkaline Phosphatase 116 (38-126) U/L Total Creatine Kinase 171 H (55-170) U/L CK-MB (CK-2) 3.62 H (<2.37) ng/mL CK-MB (CK-2) Rel Index 2.1 (1.5-5.0) % Troponin I < 0.012 (0.01-0.034) ng/mL Total Protein 7.6 (6.3-8.2) g/dL Albumin 4.3 (3.5-5.0) g/dL Globulin 3.3 (1.7-4.1) g/dL Albumin/Globulin Ratio 1.3 (1.0-2.8) Amylase 69 (30-110) U/L Lipase 415 H (23-300) U/L Procalcitonin (<0.5) ng/mL Urine RBC (0-5/HPF) Urine WBC (0-5/HPF) Ur Squamous Epith Cells (0-5/HPF) Urine Bacteria (None) Ur Culture Indicated? 09/26/19 09/26/19 09/26/19 Range/Units 15:50 15:50 18:12 WBC (4.5-11.0) X10^3/uL RBC (4.5-5.9) X10^6/uL Hgb (13.5-17.5) g/dL Hct (41-53) % MCV (80-100) fL MCH (26-34) PG MCHC (30-36) % RDW (11.6-14.8) % Plt Count (150-400) X10^3/uL Neut % (Auto) (50-75) % Lymph % (Auto) (25-40) % [place] % (Auto) (3-14) % Eos % (Auto) (2-4) % Baso % (Auto) (0-2) % Neut # (Auto) (5312-1675) /uL Lymph # (Auto) (3806-4194) /uL [place] # (Auto) (0-900) /uL Eos # (Auto) (0-450) /uL Baso # (Auto) (0-100) /uL PT (10.1-12.7) SECONDS INR (0.9-1.3) APTT (26.4-36.2) SECONDS Sodium (137-145) mmol/L Potassium (3.4-5.1) mmol/L Chloride (98-107) mmol/L Carbon Dioxide (22-32) mmol/L BUN (9-20) mg/dL Creatinine (0.66-1.25) mg/dL Estimated GFR (>60) mL/min BUN/Creatinine Ratio (6-22) Glucose (70-100) mg/dL Lactate 3.1 H 2.5 H (0.7-2.1) mmol/L Calcium (8.4-10.2) mg/dL Total Bilirubin (0.2-1.3) mg/dL AST (17-59) IU/L ALT (<50) IU/L Alkaline Phosphatase (38-126) U/L Total Creatine Kinase (55-170) U/L CK-MB (CK-2) (<2.37) ng/mL CK-MB (CK-2) Rel Index (1.5-5.0) % Troponin I (0.01-0.034) ng/mL Total Protein (6.3-8.2) g/dL Albumin (3.5-5.0) g/dL Globulin (1.7-4.1) g/dL Albumin/Globulin Ratio (1.0-2.8) Amylase (30-110) U/L Lipase (23-300) U/L Procalcitonin < 0.05 (<0.5) ng/mL Urine RBC (0-5/HPF) Urine WBC (0-5/HPF) Ur Squamous Epith Cells (0-5/HPF) Urine Bacteria (None) Ur Culture Indicated? 09/26/19 Range/Units 19:30 WBC (4.5-11.0) X10^3/uL RBC (4.5-5.9) X10^6/uL Hgb (13.5-17.5) g/dL Hct (41-53) % MCV (80-100) fL MCH (26-34) PG MCHC (30-36) % RDW (11.6-14.8) % Plt Count (150-400) X10^3/uL Neut % (Auto) (50-75) % Lymph % (Auto) (25-40) % [place] % (Auto) (3-14) % Eos % (Auto) (2-4) % Baso % (Auto) (0-2) % Neut # (Auto) (2390-0387) /uL Lymph # (Auto) (2227-3762) /uL [place] # (Auto) (0-900) /uL Eos # (Auto) (0-450) /uL Baso # (Auto) (0-100) /uL PT (10.1-12.7) SECONDS INR (0.9-1.3) APTT (26.4-36.2) SECONDS Sodium (137-145) mmol/L Potassium (3.4-5.1) mmol/L Chloride (98-107) mmol/L Carbon Dioxide (22-32) mmol/L BUN (9-20) mg/dL Creatinine (0.66-1.25) mg/dL Estimated GFR (>60) mL/min BUN/Creatinine Ratio (6-22) Glucose (70-100) mg/dL Lactate (0.7-2.1) mmol/L Calcium (8.4-10.2) mg/dL Total Bilirubin (0.2-1.3) mg/dL AST (17-59) IU/L ALT (<50) IU/L Alkaline Phosphatase (38-126) U/L Total Creatine Kinase (55-170) U/L CK-MB (CK-2) (<2.37) ng/mL CK-MB (CK-2) Rel Index (1.5-5.0) % Troponin I (0.01-0.034) ng/mL Total Protein (6.3-8.2) g/dL Albumin (3.5-5.0) g/dL Globulin (1.7-4.1) g/dL Albumin/Globulin Ratio (1.0-2.8) Amylase (30-110) U/L Lipase (23-300) U/L Procalcitonin (<0.5) ng/mL Urine RBC 0-1/hpf (0-5/HPF) Urine WBC 0-1/hpf (0-5/HPF) Ur Squamous Epith Cells None seen (0-5/HPF) Urine Bacteria None seen (None) Ur Culture Indicated? Cult not indicated Point of care testing: Point of Care Testing Glucose POC 268 Urine Dip Bedside Urine Glucose 500 mg/dl Bedside Urine Bilirubin - Negative Bedside Urine Ketone ++ 40 Urine Specific [place] 1.015 Bedside Urine Occult Blood - Negative Bedside Urine pH 6.0 Bedside Urine Protein +++ 300 Bedside Urine Urobilinogen +/- 1mg Bedside Urine Nitrite - Negative Bedside Urine Leukocytes - Negative Esterase Discharge Plan Departure Patient Disposition: Admitted as Observation Clinical Impression: Small bowel obstruction Discharge Date/Time: 09/26/19 20:34 Admit Date/Time: 09/26/19 20:03 Admit Provider: Raj Augustine <Thom Chacko DO - Last Filed: 09/26/19 22:28> Cosign ED Attending Cosignature Attestation: I was immediately available in the department for consultation. This documentation has been reviewed and I agree with assessment and plan. Supervised by Thom Chacko DO
[2019-09-26] MEDS: ONDANSETRON 4 MG/2 ML INJ IV ×2 (15:38→17:16)
[2019-09-26] MEDS: MORPHINE 4 MG/ML INJ IV ×2 (15:38→17:16)
[2019-09-26] MEDS: SODIUM CHLORIDE 0.9% 1,000 ML 125 ML IV (15:39)
[2019-09-26 16:00] LABS: Add Manual Diff / Slide Review NO; Basophils Absolute Auto 100 /uL (0-100); Basophils Percent Auto 0.6 % (0-2); Eosinophils Absolute Auto 100 /uL (0-450); Eosinophils Percent Auto 0.9 % (2-4); Hematocrit 44.9 % (41-53); Hemoglobin 15.4 g/dL (13.5-17.5); Lymphocytes Absolute Auto 1400 /uL (1100-4500); Lymphocytes Percent Auto 15.1 % (25-40); Mean Corpuscular HGB Conc 34.3 % (30-36); Mean Corpuscular Hemoglobin 30.7 PG (26-34); Mean Corpuscular Volume 89.4 fL (80-100); Monocytes Absolute Auto 700 /uL (0-900); Monocytes Percent Auto 7.5 % (3-14); Neutrophils Absolute Auto 7000 /uL (1500-7000); Neutrophils Percent Auto 75.9 % (50-75); Platelet Count 215 X10^3/uL (150-400); Red Blood Cell Count 5.03 X10^6/uL (4.5-5.9); Red Cell Distribution Width 14.6 % (11.6-14.8); White Blood Cell Count 9.3 X10^3/uL (4.5-11.0)
[2019-09-26 16:13] LABS: INR 1.1 (0.9-1.3); Prothrombin Time 12.6 SECONDS (10.1-12.7)
[2019-09-26 16:16] LABS: PTT Partial Thromboplastin Tim 31 SECONDS (26.4-36.2)
[2019-09-26 16:17] LABS: Lactate (Lactic Acid) 3.1 mmol/L (0.7-2.1)
[2019-09-26 16:19] LABS: Alanine Aminotransferase 33 IU/L (<50); Albumin 4.3 g/dL (3.5-5.0); Albumin Globulin Ratio 1.3 (1.0-2.8); Alkaline Phosphatase 116 U/L (38-126); Amylase 69 U/L (30-110); Aspartate Aminotransferase 56 IU/L (17-59); BUN Creatinine Ratio 9.6 (6-22); Bilirubin Total 0.6 mg/dL (0.2-1.3); Blood Urea Nitrogen 7 mg/dL (9-20); Calcium 9.9 mg/dL (8.4-10.2); Carbon Dioxide 25 mmol/L (22-32); Chloride 98 mmol/L (98-107); Creatine Kinase 171 U/L (55-170); Estimated Glomerular Filt Rate > 60.0 mL/min (>60); Globulin 3.3 g/dL (1.7-4.1); Glucose 312 mg/dL (70-100); HEMOLYSIS 19 (0-50); Lipase 415 U/L (23-300); Potassium 4.3 mmol/L (3.4-5.1); Sodium 134 mmol/L (137-145); Total Protein 7.6 g/dL (6.3-8.2)
[2019-09-26 16:31] LABS: Troponin I < 0.012 ng/mL (0.01-0.034)
[2019-09-26 16:35] LABS: CKMB % Relative Index 2.1 % (1.5-5.0); Creatine Kinase MB 3.62 ng/mL (<2.37)
[2019-09-26 16:36] LABS: Procalcitonin < 0.05 ng/mL (<0.5)
--- NOTE | 2019-09-26 16:59 | DI.CT.S_ITS ---
PROCEDURE: CT ABDOMEN PELVIS W CON INDICATIONS: abd pain, hernia TECHNIQUE: After the administration of intravenous contrast, 5 mm thick sections acquired from the diaphragm to the symphysis. 5 mm coronal and sagittal reformats were acquired. For radiation dose reduction, the following was used: automated exposure control, adjustment of mA and/or kV according to patient size. The patient was premedicated for an iodine allergy. No immediate contrast reaction was recorded. COMPARISON: [facility], CT, CT ABDOMEN PELVIS W CON, 10/09/2018, 15:53. FINDINGS: Image quality: Excellent. ABDOMEN: Lung bases: Lung bases are clear. Heart size is normal. A small hiatal hernia is incidentally noted. Solid organs: Liver is normal in size and enhancement. Diffuse fatty liver infiltration is noted. Gallbladder wall does not appear thickened. Biliary system is non dilated. Pancreas enhances normally. Spleen is normal in size and enhancement. No adrenal nodules. Kidneys demonstrate normal size and enhancement, without hydronephrosis. Peritoneum and bowel: There is a pannus hernia, which contains one loop of dilated small bowel that measures up to 3.7 cm. Additional dilated small bowel can be seen proximally. There is a transition point seen is seen is a dilated loop enters the hernia and becomes decompressed at the hernia orifice. The small bowel loops are decompressed distal to this point. No significant colonic abnormality is seen. No free air or significant free fluid can be seen. Nodes and vessels: No retroperitoneal or mesenteric adenopathy by size criteria. Aorta and inferior vena cava are normal in size. Miscellaneous: PELVIS: Genitourinary: Bladder wall thickness is normal. Miscellaneous: No inguinal hernias or adenopathy. Bones: No suspicious bony lesions. No vertebral body compression fractures. Age-appropriate bony degenerative changes are seen. IMPRESSION: Enlarging pannus hernia, with a transition point a small bowel obstruction seen at entry point to this hernia. Incidental note is made of: Small hiatal hernia Diffuse fatty liver infiltration Note: Case discussed by telephone with Iris Lr at 1702 hrs. [place] time on September 26, 2019. Dictated by: Jean Marie Cruz M.D. on 09/26/2019 at 16:55 Approved by: Jean Marie Cruz M.D. on 09/26/2019 at 17:03
[2019-09-26] MEDS: methylPREDNISolone 125 MG/2 ML VIAL IV (17:16)
[2019-09-26] MEDS: diphenhydrAMINE 50 MG/ML VIAL IV (17:17)
[2019-09-26 17:57] LABS: Reflexed Lactate in 2 Hours Y
[2019-09-26 18:27] LABS: Lactate 2HR (Lactic Acid Rflx) 2.5 mmol/L (0.7-2.1)
[2019-09-26 18:54] VITALS: BP 142/81; PULSE 96; RESP 18; O2SAT 97
[2019-09-26] MEDS: INSULIN ASPART 100 UNIT/ML 10ML VIAL IV (19:10)
[2019-09-26] MEDS: LACTATED RINGERS 1,000 ML 200 ML IV ×3 (19:33→22:39)
[2019-09-26 19:39] LABS: Bacteria Urine None Seen
[2019-09-26 20:07] LABS: Culture Indicated Urine Cult Not Indicated; RBC Urine 0-1/HPF (0-5/HPF); Squamous Epithelial Cell Urine None Seen (0-5/HPF); WBC Urine 0-1/HPF (0-5/HPF)
[2019-09-26] MEDS: MORPHINE 4 MG/ML INJ (20:08)
--- NOTE | 2019-09-26 20:13 | P.HP_ITS ---
History of Present Illness History of Present Illness Date Patient Seen: 09/26/19 Time Patient Seen: 19:30 Chief complaint: abdominal pain/vomiting Narrative: Patient is a gentleman who developed diffuse abdominal pain accompanied by nausea and vomiting yesterday morning. He had a normal bowel movement prior to the onset of this pain. He has a known her ventral hernia and has been present for 5 years. He has never had pain quite like this. He has no prior abdominal operations. He is a poorly-controlled diabetic to test his sugar about once a week. He also suffers from hypertension and has had a neck fracture. Patient History Medical History (Updated 09/26/19 @ 20:31 by Raj Augustine MD) Diabetes (Acute) GERD (gastroesophageal reflux disease) (Acute) Hernia, umbilical (Acute) Hypertension (Acute) Hypothyroidism (Acute) Morbid obesity (Acute) Family & Social History Safety & Behavioral: Feels Safe in Current Yes Environment Tobacco & Substance use: Smoking Status Never smoker alcohol intake frequency a few times a month Substance Use Type does not use Meds Home Medications and Allergies Home Medications Medication Instructions Recorded Confirmed Type gabapentin 600 mg PO BID 09/26/19 09/26/19 History glipizide 10 mg PO BID 09/26/19 09/26/19 History levothyroxine 125 mcg PO BID 09/26/19 09/26/19 History lisinopril 10 mg PO DAILY 09/26/19 09/26/19 History loratadine 10 mg PO DAILY 09/26/19 09/26/19 History magnesium oxide 420 mg PO BID 09/26/19 09/26/19 History metoprolol tartrate 25 mg PO BID 09/26/19 09/26/19 History omeprazole 20 mg PO DAILY 09/26/19 09/26/19 History semaglutide [Ozempic] 0.25 mg SUBCUT QWEEK 09/26/19 09/26/19 History Allergies Allergy/AdvReac Type Severity Reaction Status Date / Time Iodinated Contrast Media Allergy Verified 10/09/18 17:19 Review of Systems Review of Systems Narrative: Patient denies visual difficulties double vision pain is eyes earache sore throats. No trouble swallowing or tooth aches at this time. No cough or cold. No breathing issues. He did feel like an elephant was sitting on his chest but normally does not have chest pain and does not have any history of cardiac disease. He has never smoked. Patient has no black or bloody bowel movements. No blood in his emesis. No difficulty urinating blood in his urine or kidney stones. No seizures or blackouts. He is hypothyroid on medication. He is diabetic. No psychiatric illnesses like to major depression or psychosis. No unusual bruising or bleeding. Exam Vital Signs (past 8 hours): - 09/26/19 14:53 09/26/19 18:54 Temperature 96.2 F L Pulse Rate 100 H 96 H Respiratory Rate 15 18 Blood Pressure 177/100 H Blood Pressure [Right Arm] 142/81 H Pulse Oximetry 95 97 Oxygen Delivery Method Nasal Cannula Narrative Exam Narrative: Cooperative gentleman laying still in no apparent distress. His eyes are nonicteric. Pupils are small round reactive to light. Conjunctivae a re pink. Ears without lesion. Nasal septum midline no visible lesions in his nares. Oral mucosa is pink moist no open lesions. No splits is lips. There are no nodes in the neck or supraclavicular areas. No tenderness or masses. Lungs are clear to auscultation without rales or rhonchi in equal percussion. Heart regular rate and rhythm without murmur gallop. No heave lift or thrill. Abdomen is morbidly protuberant soft. He has voluntary guarding however and an obvious hernia in the mid abdomen with a very large sac. I really can not feel the fascial defect due to the size of the sac and the size of the patient. Patient has 2+ dorsalis pedis pulses. Decreased hair in the lower extremities. No open skin lesions appreciated. Speech rate and content are appropriate. Affect is appropriate. Objective Imaging CT scan - abdomen: My impression: Patient has a 5 x 5 cm fascial defect through which a large amount of small bowel and mesentery had protruded. It appears that there is an obstructive process at the proximal small bowel entering the hernia sac. No fr ee air. Other than obesity and fatty infiltration of the liver no other significant findings. Labs Result Diagrams: 09/26/19 15:50 09/26/19 15:50 Labs: Laboratory Results - last 24 hr 09/26/19 09/26/19 09/26/19 15:50 15:50 15:50 WBC 9.3 RBC 5.03 Hgb 15.4 Hct 44.9 MCV 89.4 MCH 30.7 MCHC 34.3 RDW 14.6 Plt Count 215 Neut % (Auto) 75.9 H Lymph % (Auto) 15.1 L [place] % (Auto) 7.5 Eos % (Auto) 0.9 L Baso % (Auto) 0.6 Neut # (Auto) 7000 Lymph # (Auto) 1400 [place] # (Auto) 700 Eos # (Auto) 100 Baso # (Auto) 100 PT 12.6 INR 1.1 APTT 31 D Sodium 134 L Potassium 4.3 Chloride 98 Carbon Dioxide 25 BUN 7 L Creatinine 0.73 Estimated GFR > 60.0 BUN/Creatinine Ratio 9.6 Glucose 312 H Lactate Calcium 9.9 Total Bilirubin 0.6 AST 56 ALT 33 Alkaline Phosphatase 116 Total Creatine Kinase 171 H CK-MB (CK-2) 3.62 H CK-MB (CK-2) Rel Index 2.1 Troponin I < 0.012 Total Protein 7.6 Albumin 4.3 Globulin 3.3 Albumin/Globulin Ratio 1.3 Amylase 69 Lipase 415 H Procalcitonin Urine RBC Urine WBC Ur Squamous Epith Cells Urine Bacteria Ur Culture Indicated? 09/26/19 09/26/19 09/26/19 15:50 15:50 18:12 WBC RBC Hgb Hct MCV MCH MCHC RDW Plt Count Neut % (Auto) Lymph % (Auto) [place] % (Auto) Eos % (Auto) Baso % (Auto) Neut # (Auto) Lymph # (Auto) [place] # (Auto) Eos # (Auto) Baso # (Auto) PT INR APTT Sodium Potassium Chloride Carbon Dioxide BUN Creatinine Estimated GFR BUN/Creatinine Ratio Glucose Lactate 3.1 H 2.5 H Calcium Total Bilirubin AST ALT Alkaline Phosphatase Total Creatine Kinase CK-MB (CK-2) CK-MB (CK-2) Rel Index Troponin I Total Protein Albumin Globulin Albumin/Globulin Ratio Amylase Lipase Procalcitonin < 0.05 Urine RBC Urine WBC Ur Squamous Epith Cells Urine Bacteria Ur Culture Indicated? 09/26/19 19:30 WBC RBC Hgb Hct MCV MCH MCHC RDW Plt Count Neut % (Auto) Lymph % (Auto) [place] % (Auto) Eos % (Auto) Baso % (Auto) Neut # (Auto) Lymph # (Auto) [place] # (Auto) Eos # (Auto) Baso # (Auto) PT INR APTT Sodium Potassium Chloride Carbon Dioxide BUN Creatinine Estimated GFR BUN/Creatinine Ratio Glucose Lactate Calcium Total Bilirubin AST ALT Alkaline Phosphatase Total Creatine Kinase CK-MB (CK-2) CK-MB (CK-2) Rel Index Troponin I Total Protein Albumin Globulin Albumin/Globulin Ratio Amylase Lipase Procalcitonin Urine RBC 0-1/hpf Urine WBC 0-1/hpf Ur Squamous Epith Cells None seen Urine Bacteria None seen Ur Culture Indicated? Cult not indicated Assessment & Plan Assessment & Plan narrative: One small-bowel obstruction secondary to a large incarcerated ventral hernia. Recommend emergent repair. Concern is over the possibility of developing necrotic bowel. Therefore we should proceed promptly without any preoperative delays despite the COVID-19 issues. Poorly controlled diabetes. Patient was given insulin for sugar 312. Will recheck. Do not believe delay is prudent to bring this further under control that we will give additional insulin and check his sugars as needed intraoperatively. Hypothyroidism will continue his levothyroxine Essential hypertension controlled with medication including a beta-parker. Will give meds postop and control blood pressure intraoperatively Reflux disease possible source of his chest discomfort pressure. His EKG and troponins are negative for ischemic heart disease. Will continue his proton pump inhibitor Neck pain secondary to fracture he will continue his gabapentin
--- NOTE | 2019-09-26 20:31 | PM.PREOP ---
Pre-operative Note COVID-19 COVID-19 status: Not tested Interval Note History & Physical reviewed/Exam performed by Physician: Yes Changes to H&P: No
[2019-09-26 20:33] VITALS: BP 142/81; PULSE 93; RESP 16; O2SAT 99
[2019-09-26] MEDS: CEFAZOLIN 2 GM/100 ML FROZ.PIGGY IV (20:45)
--- NOTE | 2019-09-26 21:16 | SUR.OPER ---
Supine on padded OR bed, head on pillow, arms secured on padded arm boards at <90 degrees abduction, legs uncrossed, safety belt at thigh, tape over blanket over lower legs.
[2019-09-26] MEDS: CEFAZOLIN 1 GM/50 ML FROZ.PIGGY IV (21:26)
[2019-09-26] MEDS: INSULIN REGULAR 100 UNIT/ML 3 ML VIAL SUBCUT ×2 (21:28→23:06)
[2019-09-26] MEDS: BUPIVACAINE 0.5% (PF) VIAL 30 ML INJ (21:31)
[2019-09-27] VITALS (21 sets, daily range): BP systolic 108–149; BP diastolic 70–88; PULSE 99–112; RESP 8–20; TEMP 36.4–37.4; O2SAT 87–98; BMI 48.6
--- NOTE | 2019-09-27 00:17 | PM.OP.1 ---
Operative Date/Time/Diagnoses Date of procedure: 09/27/19 Time of procedure: 00:18 Pre-op diagnosis: Incarcerated ventral hernia Post-op diagnosis: same Procedure & Clinicians Procedure: Exploration adhesed a lysis and repair of ventral hernia with an onlay of mesh Same procedure as scheduled: Yes Indications: Patient with a bowel obstruction nausea and vomiting due to an incarcerated ventral hernia Surgeon: Raj Augustine Click Yes if Unassisted: Yes Anesthesia Type: General Operative Notes Findings: Large amount of small bowel and omentum in the hernia sac. Hernia sac itself was a size of a cantaloupe Closure Type: primary Specimen(s): none sent Prosthetic devices, grafts, tissues, transplants, or devices: 10 x 15 cm light weight permanent mesh implanted Estimated Blood Loss (mL): 300 Blood products transfused: none Procedure in detail: The patient is placed supine on the operating room table and underwent general endotracheal anesthesia. He was prepped and draped in the usual fashion. Vertical incision was made overlying very large hernia sac which due to his pannus was in the lower part of his abdomen. The hernia sac was almost immediately beneath the skin. I dissected the skin and overlying tissues from the hernia sac circumferentially. This was a long tedious process. I opened the hernia sac and found small bowel and adhesed omentum. There were some adhesions between loops of small bowel and I divided these to prevent an obstructive process. I was then able to reduce the small bowel. The omentum was quite adherent and I dissected it principally with cautery off the hernia sac. I reached a point however there was quite odd everything narrowed down to a point with the blood supply came into the large piece of omentum. This was really the only part of the omentum connecting to the abdomen proper. I divided this vessel and removed the omentum rather than force it through a small opening. The vessel was suture ligated with 2 0 silk. I then excised most of the sac and dissected the few adhesions of omentum from the abdominal wall. I decided to close the peritoneum with the fascial closure. The fascia appeared to come together best superior to inferior rather than side to side. This seemed to be little tension. Using interrupted [id number] 1. Ethibond the fascia was closed. I removed the excess skin with a knife and cautery so that the closure would be flat and the skin would have a good blood supply. It also allow me to obliterate any space. I then dissected the subcu fat off of the underlying fascia so that I could lay a piece of mesh 10 x 15 cm over my repair. Using a lightweight mesh that was permanent I tacked the middle the mesh to my repair with of 0 Ethibond. I then tacked the edges of the mesh to the anterior fascia all along the edge of the mesh so that it would lay flat. I then placed a drain overlying the mesh. I closed a layer of fat over the mesh using interrupted 3 0 Vicryl. I then closed thick layer of subcu with interrupted 2 0 Vicryl sutures. I then closed the dermis with interrupted 3 0 Vicryl and the skin with kayla. The drain was secured with a 3 0 nylon suture. The patient was awakened extubated and recovery begun in the operating room. Complications: none Post-operative Condition: stable Disposition: PACU Plan for aftercare: For observation/admission.
[2019-09-27] MEDS: INSULIN REGULAR 100 UNIT/ML 3 ML VIAL IV ×2 (00:47→10:36)
--- NOTE | 2019-09-27 01:05 | SUR.PHASEI ---
Report called to [facility]
[2019-09-27] MEDS: LACTATED RINGERS 1,000 ML 125 ML IV ×3 (01:55→18:27)
[2019-09-27] MEDS: INSULIN ASPART 100 UNIT/ML INSULN PEN SUBCUT ×3 (02:05→17:10)
[2019-09-27] MEDS: KETOROLAC 30 MG/ML VIAL IV (02:12)
[2019-09-27] MEDS: OXYCODONE IR 5 MG TABLET 10 MG PO ×2 (03:18→14:53)
--- NOTE | 2019-09-27 03:36 | PC.NURSE ---
0115 admitted to room 211 from PACU, S/P incarcerated Ventral Hernia repair with mesh. Dressing CDI & KEKE draining bloody drainage. Pt. awake, denies any nausea, pain level 10. Medicated with 30 mg. of Toradol IVP, upon re-assessment reported pain not improve, still the same 3-09/07. Medicated with 10 mg. of Percolone with sips of water. CBG, 306 admin. 7 units of Insulin Aspart per sliding scale. Will cont. POC & monitor.
[2019-09-27] MEDS: PANTOPRAZOLE 20 MG TABLET PO (05:45)
--- NOTE | 2019-09-27 06:08 | PC.NURSE ---
Ambulated to the bathroom SBA, denies any dizziness, no C/O pain & nausea. Voided 500 cc of dark yellow urine. Noted old dried blood in the back of his abdominal binder. Will monitor.
[2019-09-27 06:49] LABS: Magnesium 1.9 mg/dL (1.6-2.3)
[2019-09-27 06:51] LABS: BUN Creatinine Ratio 11.4 (6-22); Blood Urea Nitrogen 10 mg/dL (9-20); Calcium 8.7 mg/dL (8.4-10.2); Carbon Dioxide 24 mmol/L (22-32); Chloride 100 mmol/L (98-107); Estimated Glomerular Filt Rate > 60.0 mL/min (>60); Glucose 324 mg/dL (70-100); HEMOLYSIS < 15 (0-50); Potassium 4.4 mmol/L (3.4-5.1); Sodium 135 mmol/L (137-145)
[2019-09-27 06:58] LABS: Add Manual Diff / Slide Review NO; Basophils Absolute Auto 0 /uL (0-100); Eosinophils Absolute Auto 0 /uL (0-450); Hematocrit 39.4 % (41-53); Hemoglobin 13.3 g/dL (13.5-17.5); Lymphocytes Absolute Auto 1200 /uL (1100-4500); Lymphocytes Percent Auto 6.6 % (25-40); Mean Corpuscular HGB Conc 33.7 % (30-36); Mean Corpuscular Hemoglobin 30.4 PG (26-34); Mean Corpuscular Volume 90.1 fL (80-100); Monocytes Absolute Auto 1100 /uL (0-900); Monocytes Percent Auto 6.1 % (3-14); Neutrophils Absolute Auto 15800 /uL (1500-7000); Neutrophils Percent Auto 87.3 % (50-75); Platelet Count 221 X10^3/uL (150-400); Red Blood Cell Count 4.37 X10^6/uL (4.5-5.9); Red Cell Distribution Width 14.7 % (11.6-14.8); White Blood Cell Count 18.1 X10^3/uL (4.5-11.0)
[2019-09-27] MEDS: ENOXAPARIN 40 MG/0.4 ML SYRINGE SUBCUT (10:06)
[2019-09-27] MEDS: lisinopriL 10 MG TABLET PO (10:07)
[2019-09-27] MEDS: GABAPENTIN 600 MG TABLET PO ×2 (10:07→20:48)
[2019-09-27] MEDS: LORATADINE 10 MG TABLET PO (10:08)
[2019-09-27] MEDS: METOPROLOL IR 25 MG TABLET PO ×2 (10:08→20:49)
[2019-09-27] MEDS: glipiZIDE 5 MG TABLET 10 MG PO ×2 (10:28→17:00)
[2019-09-27] MEDS: MAGNESIUM OXIDE 400 MG TABLET PO ×2 (10:29→20:50)
[2019-09-27] MEDS: LEVOTHYROXINE 125 MCG TABLET PO ×2 (10:29→21:30)
--- NOTE | 2019-09-27 10:58 | PM.PNPO.1 ---
Subjective Subjective Date Patient Seen: 09/27/19 Time Patient Seen: 10:58 Interval history: the patient is a gentleman postop from repair of ventral incarcerated hernia. He is having incisional pain. He says in his intestinal pain nausea and vomiting have resolved. He had a bowel obstruction caused by his incarcerated hernia. Exam Vital Signs (past 8 hours): - 09/27/19 03:45 09/27/19 05:24 09/27/19 07:40 Temperature 99.3 F 98.4 F Pulse Rate 100 H 112 H Respiratory Rate 16 16 Blood Pressure 129/77 149/88 H Pulse Oximetry 95 94 95 09/27/19 09:40 Temperature Pulse Rate 111 H Respiratory Rate 16 Blood Pressure Pulse Oximetry 92 Oxygen Delivery Method Room Air Oxygen Flow Rate 1 Narrative Exam Narrative: Lungs are clear to auscultation. Slight decrease in the bases. Heart regular rate and rhythm without murmur. Abdomen is protuberant but soft. Dressing is dry and intact. Drainage is bloody but minimal. Objective Labs Result Diagrams: 09/27/19 06:15 09/27/19 06:15 Labs: Laboratory Results - last 24 hr 09/26/19 09/26/19 09/26/19 15:50 15:50 15:50 WBC 9.3 RBC 5.03 Hgb 15.4 Hct 44.9 MCV 89.4 MCH 30.7 MCHC 34.3 RDW 14.6 Plt Count 215 Neut % (Auto) 75.9 H Lymph % (Auto) 15.1 L [place] % (Auto) 7.5 Eos % (Auto) 0.9 L Baso % (Auto) 0.6 Neut # (Auto) 7000 Lymph # (Auto) 1400 [place] # (Auto) 700 Eos # (Auto) 100 Baso # (Auto) 100 PT 12.6 INR 1.1 APTT 31 D Sodium 134 L Potassium 4.3 Chloride 98 Carbon Dioxide 25 BUN 7 L Creatinine 0.73 Estimated GFR > 60.0 BUN/Creatinine Ratio 9.6 Glucose 312 H Lactate Calcium 9.9 Magnesium Total Bilirubin 0.6 AST 56 ALT 33 Alkaline Phosphatase 116 Total Creatine Kinase 171 H CK-MB (CK-2) 3.62 H CK-MB (CK-2) Rel Index 2.1 Troponin I < 0.012 Total Protein 7.6 Albumin 4.3 Globulin 3.3 Albumin/Globulin Ratio 1.3 Amylase 69 Lipase 415 H Procalcitonin Urine RBC Urine WBC Ur Squamous Epith Cells Urine Bacteria Ur Culture Indicated? 09/26/19 09/26/19 09/26/19 15:50 15:50 18:12 WBC RBC Hgb Hct MCV MCH MCHC RDW Plt Count Neut % (Auto) Lymph % (Auto) [place] % (Auto) Eos % (Auto) Baso % (Auto) Neut # (Auto) Lymph # (Auto) [place] # (Auto) Eos # (Auto) Baso # (Auto) PT INR APTT Sodium Potassium Chloride Carbon Dioxide BUN Creatinine Estimated GFR BUN/Creatinine Ratio Glucose Lactate 3.1 H 2.5 H Calcium Magnesium Total Bilirubin AST ALT Alkaline Phosphatase Total Creatine Kinase CK-MB (CK-2) CK-MB (CK-2) Rel Index Troponin I Total Protein Albumin Globulin Albumin/Globulin Ratio Amylase Lipase Procalcitonin < 0.05 Urine RBC Urine WBC Ur Squamous Epith Cells Urine Bacteria Ur Culture Indicated? 09/26/19 09/27/19 09/27/19 19:30 06:15 06:15 WBC 18.1 H D RBC 4.37 L Hgb 13.3 L Hct 39.4 L MCV 90.1 MCH 30.4 MCHC 33.7 RDW 14.7 Plt Count 221 Neut % (Auto) 87.3 H Lymph % (Auto) 6.6 L [place] % (Auto) 6.1 Eos % (Auto) 0.0 L Baso % (Auto) 0.0 Neut # (Auto) 61689 H Lymph # (Auto) 1200 [place] # (Auto) 1100 H Eos # (Auto) 0 Baso # (Auto) 0 PT INR APTT Sodium 135 L Potassium 4.4 Chloride 100 Carbon Dioxide 24 BUN 10 Creatinine 0.88 Estimated GFR > 60.0 BUN/Creatinine Ratio 11.4 Glucose 324 H Lactate Calcium 8.7 Magnesium Total Bilirubin AST ALT Alkaline Phosphatase Total Creatine Kinase CK-MB (CK-2) CK-MB (CK-2) Rel Index Troponin I Total Protein Albumin Globulin Albumin/Globulin Ratio Amylase Lipase Procalcitonin Urine RBC 0-1/hpf Urine WBC 0-1/hpf Ur Squamous Epith Cells None seen Urine Bacteria None seen Ur Culture Indicated? Cult not indicated 09/27/19 06:15 WBC RBC Hgb Hct MCV MCH MCHC RDW Plt Count Neut % (Auto) Lymph % (Auto) [place] % (Auto) Eos % (Auto) Baso % (Auto) Neut # (Auto) Lymph # (Auto) [place] # (Auto) Eos # (Auto) Baso # (Auto) PT INR APTT Sodium Potassium Chloride Carbon Dioxide BUN Creatinine Estimated GFR BUN/Creatinine Ratio Glucose Lactate Calcium Magnesium 1.9 Total Bilirubin AST ALT Alkaline Phosphatase Total Creatine Kinase CK-MB (CK-2) CK-MB (CK-2) Rel Index Troponin I Total Protein Albumin Globulin Albumin/Globulin Ratio Amylase Lipase Procalcitonin Urine RBC Urine WBC Ur Squamous Epith Cells Urine Bacteria Ur Culture Indicated? Assessment & Plan Post-op Postoperative Procedures: Procedures Operation Date: 09/26/19 20:15 Actual Procedures Side Surgeon p Hernia Repair - ventral with mesh Raj Augustine MD Postoperative day: 0 Postoperative status narrative: Doing as expected. Sugars are very poorly controlled despite the sliding scale. Making good effort to breathe deeply. Postoperative plan narrative: Resume his oral anti hyperglycemics. Start p.o. liquids. Decrease IV fluids. Mobilize. Continue respiratory exercises. Quality VTE Deep Vein Thrombosis/Pulmonary Embolism Present on Admission: No
--- NOTE | 2019-09-27 12:19 | DIET.PN ---
Dietary Progress Note Assessment: Mr. Rooney is a 49 year old male who developed abdominal pain with nausea and vomiting [place] morning with a known hernia that has been present for 5 years. Per provider note, he is a poorly-controlled diabetic. He reports checking his BG 1x/wk and following his prescribed medication regimen. He states his blood sugar was in good control prior to recent events. He [facility]. He admits he does not follow diabetic dietary guidelines though his traditionally eats very well. HT: 172.72cm WT: 145.15kg BMI: 48.7 (obese class III) Labs: Gluc: 312, 324 MNA: 13 Nghia: 20 Nutrition Diagnosis: Altered nutrition related lab values r/t endocrine dysfunction aeb elevated HbgA1c, blood glucose, reported intake of energy dense foods high in refined carbohydrates. Interventions: 1. Discussed importance of self-monitoring, how often, and when to check. 2. Discussed impact of nutrition/diet on blood sugar control.? Discussed fed versus non-fed state.?? 3. Discussed the effect of carbohydrates/protein/fat on blood sugar control.? Stressed importance of consistent carbohydrate intake at each meal and provided instructions for recommended servings/portions of carbohydrates/protein per meal. Provided pt with educational material. 4. Reviewed carbohydrate counting and measuring carbohydrate content via serving sizes and reading nutrition labels.? Provided handouts.?? 5. Discussed the difference between simple versus complex carbohydrates and the effect of fiber on blood sugar control.? Discussed various methods to increase fiber content in diet. 6. Discussed healthy weight loss through diet and exercise to increase lean muscle mass.? Pt agreeable to walking daily. Diet Order: CL EER: 2200 [place]is @ 15cal/kg (morbid obese, weight loss); 145 g pro @ 1g/kg Monitoring/Evaluations: weight, diet advancement/tolerance, PO intake, associated labs, need for additional education. Patient reports [facility]. Provided information about Diabetes Education Program.
--- NOTE | 2019-09-27 13:33 | CM.DANOTE ---
Patient is a 49 year old male who was admitted on 09/26/19 for Abdominal Pain. Pt has [employer] for insurance and his PCP is not listed. EMR was reviewed. Per MD, pt with SBO and ventral hernia and to have surgical intervention today. Per RN, pt was taken to surgery early this morning and has returned to the floor. PT has been ordered and pending. SW met bedside with pt and explained role and confirmed that pt lives at home in [place] with his and is independent with ADL's at baseline. Pt states his is working from home and available to assist if needed and pt preference was to d/c home today but aware that he will likely need to stay overnight. Pt does not anticipate any SW needs at d/c and denies any hx of HH or SNF. Plan: SW to follow after PT eval and recommendations to confirm that pt will be safe to return home with spouse assist when medically stable. JESSI Pierre Discharge Planning/Care Management CM Discharge Assessment Start: 09/27/19 13:31 Freq: Status: Active Protocol: Document 09/27/19 13:31 BF (Rec: 09/27/19 13:33 BF [id number]) Discharge Planning Assessment Assigned [employer] JESSI Quintanilla DPOA/Assigned Designee Name informally spouse Nadiya Contact Information [phone] Advance Directives? No History Provided By Patient,Medical Record Has Patient been admitted in last 30 No days? Prior Living Arrangements House Household Members spouse Type of transporation used prior to Drives own vehicle admit Independent with ADL's Yes Is patient alert and oriented? Yes Caregiver for Another No Comment Home, likely no needs pending PT eval Barriers to Discharge No Discharge Plan Home Transportation Arrangement Spouse available for transport at d/c. Referrals Initiated None needed Review Status In Process Please Provide Date Initial DC 09/27/19 Assessment Was Performed Next Review Type Continued Stay Review
--- NOTE | 2019-09-27 14:39 | PT.IIE ---
Current Diagnoses Other and unspecified ventral hernia with obstruction, without gangrene (09/26/19) Surgery Performed Operation Date: 09/26/19 20:15 Actual Procedures p Hernia Repair - ventral with mesh - Raj Augustine MD Medical History (Last Updated 09/26/19 @ 20:31 by Raj Augustine MD) Diabetes (Acute) GERD (gastroesophageal reflux disease) (Acute) Hernia, umbilical (Acute) Hypertension (Acute) Hypothyroidism (Acute) Morbid obesity (Acute) Physical Therapy Inpatient Evaluation/Re-Eval M1 PT/OT-IP Prior Functional Status Start: 09/27/19 13:37 Freq: NEEDED Status: Active Protocol: Document 09/27/19 14:14 [facility] (Rec: 09/27/19 14:38 [facility] [id number]) Medical Review Prior Functional Status Medical History Reviewed Yes Diet/Fluid Consistency NPO Communication pt reports he lives in [place] with his . He plans on returning home tomorrow. He reports his nausea is gone now. Mobility and Gait Pt states he has been independent with mobility at home. He does have 4 steps into his house Activities of Daily Living and IADL's Ind with ADL's, spouse is available for transport and for assist at home Social History Household Members spouse Living Arrangements House Number of Stairs To Enter/Railing? 4 Home Environment Standard Height Toilet M2 PT-IP Current Condition Start: 09/27/19 13:37 Freq: NEEDED Status: Active Protocol: Document 09/27/19 14:14 [facility] (Rec: 09/27/19 14:38 [facility] [id number]) Physical Therapy Current Condition Current Condition Evaluation Date 09/27/19 Treatment Diagnosis post op ventral hernia repair 09/27/19 Onset Date 09/26/19 Precautions Abdominal Surgery Precautions Log Roll Weight Bearing Status Weight Bearing Status Full Weight Bearing M3 PT-IP Subjective Start: 09/27/19 13:37 Freq: NEEDED Status: Active Protocol: Document 09/27/19 14:14 [facility] (Rec: 09/27/19 14:38 [facility] [id number]) Subjective Physical Therapy Visit Type Type Initial Evaluation Visit Start Time 13:40 Visit Stop Time 14:10 Total Visit Minutes 30 Physical Therapy Visit Comments Patient Comments Pt sitting up in bed upon PT arrival. He agrees to PT Patient Goals Pt's goals are to DC home with his Therapy Pain Assessment Pain When Pain Assessed At Rest Pain Present Pain Present Pain Reported Location Abdomen Intensity 5 Scale Used Numeric (1 - 10) M4 PT-IP Mobility and Gait Start: 09/27/19 13:37 Freq: NEEDED Status: Active Protocol: Document 09/27/19 14:14 [facility] (Rec: 09/27/19 14:38 [facility] [id number]) PT-Bed Mobility Assessment Rolling Type of Rolling Log Rolling,Roll to Left PT-Transfer Assessment Sit to and From Stand Sit to and from Stand Contact Guard Assistance Equipment Transfer Assistive Device Gait Belt Orthotic/Prosthetic Devices or Brace: No Transfers Transfer Destination Toilet Transfer Ability Level of Assist Contact Guard Assistance Comments Mobility Comments supine to log roll to the left with SBA, sidelying to sit at the edge of the bed with SBA and use of bed rail. Sit- stand with CGA and gait belt. Pt ambulated in room to the bathroom with SBA. He wished to return to bed following treatment and was SBA for all mobility back to bed. He was positioned comfortably in bed and call light was left in reach. Gait Assessment Gait Gait Assistance Required: Standby Assistance Distance (Feet) 20 Assistive Devices Assistive Device Gait Belt Orthotic/Prosthetic Devices or Brace: No Gait Deviations General Gait Pattern Wide Based Gait Factors Limiting Gait Function Factors Limiting Gait Function Pain Comments Gait Comments pt demonstrates SBA for gait in room, no loss of balance, able to maintain balance standing to void M5 PT-IP Objective Assessments Start: 09/27/19 13:37 Freq: NEEDED Status: Active Protocol: Document 09/27/19 14:14 [facility] (Rec: 09/27/19 14:38 [facility] [id number]) Orientation Orientation/Cognition Level of Alertness Alert Safety Awareness Understands Safety Issues Memory Description No Deficits Noted Gross Range of Motion Upper Extremity ROM Assessment Within Functional Limits Lower Extremity ROM Assessment Within Functional Limits Strength Upper Extremity Strength Assessment Within Functional Limits Lower Extremity Strength Assessment Within Functional Limits Comments Strength Comments general strength WFL Coordination Assessment Gross Coordination Gross Coordination WNL Sensation Assessment Sensation Gross Sensation WNL Muscle Tone Muscle Tone WNL Yes M7 PT-IP Assessment and Plan Start: 09/27/19 13:37 Freq: NEEDED Status: Active Protocol: Document 09/27/19 14:14 [facility] (Rec: 09/27/19 14:38 [facility] [id number]) PT Summary Assessment and Plan Potential Rehabilitation Potential Excellent Status of Condition at Evaluation Stable Summary Impairments Pain,Activity Tolerance Assessment Summary 49 year old male who underwent a surgical repair of a ventral hernia earlier this am . He is still experiencing incisional pain but reports the nausea has resolved. He lives with his in [place] and plans on returning there tomorrow when he Discharges. He was educated in a log roll to protect his abdominal incision. With rolling he used the bed rail to help him roll to the left. He demonstrated SBA for all mobility and gait in room. He was able to void standing with demonstration of good balance. The plan is to return home tomorrow with his . Frequency of Treatment Frequency Of Treatment Discharge Recommendations To Nursing Amount of Assist Needed Standby Assistance Discharge Recommendations PT Discharge Recommendations Home Other Discharge Recommendations pt to dc home with his Transportation Needs at Discharge Private Vehicle
--- NOTE | 2019-09-27 15:56 | PC.NURSE ---
RA 92%, IS 1700; Bulky drsg to abdomen c/d/i with binder; KEKE drain compressed; patient reports passing some gas; tolerating clear liquid; PO oxycodone for mild pain; IV infusing; pt using call light, as needed
[2019-09-27] MEDS: METFORMIN HCL 500 MG TABLET 1000 MG PO (17:03)
--- NOTE | 2019-09-27 18:42 | PC.NURSE ---
Addendum entered by Jordana Banda R.N. 09/27/19 21:21: Satisfactory post op course. Pt hoping to D/C in am. IVF continue as per order. Denies any discomfort when asked. Surgical site intact. Call light w/in reach, bed alarm on for pt safety. Continue w/plan of care. Original Note: Pt watching TV Denies discomfort at this time. Lungs clear, SpO2 98% RA Abdomen round, surgical dsg intact w/binder. IV LR @ 125cc/hr infusing into the LAC via pump w/o incidence. Stable post op course. Call light w/in reach, bed alarm on for pt safety.
[2019-09-27] MEDS: ROSUVASTATIN 10 MG TABLET 5 MG PO (20:48)
[2019-09-28 00:10] VITALS: O2SAT 95
[2019-09-28] MEDS: OXYCODONE IR 5 MG TABLET 10 MG PO ×2 (00:14→05:55)
[2019-09-28] MEDS: LACTATED RINGERS 1,000 ML 80 ML IV (03:06)
[2019-09-28 04:00] VITALS: O2SAT 92
[2019-09-28 04:46] VITALS: BP 139/80; PULSE 90; RESP 16; TEMP 36.7; O2SAT 92
[2019-09-28] MEDS: PANTOPRAZOLE 40 MG TABLET PO (05:51)
[2019-09-28 06:22] LABS: Add Manual Diff / Slide Review NO; Basophils Absolute Auto 100 /uL (0-100); Basophils Percent Auto 0.7 % (0-2); Eosinophils Absolute Auto 200 /uL (0-450); Eosinophils Percent Auto 2.4 % (2-4); Hematocrit 38.3 % (41-53); Hemoglobin 12.9 g/dL (13.5-17.5); Lymphocytes Absolute Auto 2000 /uL (1100-4500); Lymphocytes Percent Auto 22.8 % (25-40); Mean Corpuscular HGB Conc 33.6 % (30-36); Mean Corpuscular Hemoglobin 30.4 PG (26-34); Mean Corpuscular Volume 90.4 fL (80-100); Monocytes Absolute Auto 900 /uL (0-900); Monocytes Percent Auto 9.7 % (3-14); Neutrophils Absolute Auto 5800 /uL (1500-7000); Neutrophils Percent Auto 64.4 % (50-75); Platelet Count 198 X10^3/uL (150-400); Red Blood Cell Count 4.24 X10^6/uL (4.5-5.9); Red Cell Distribution Width 14.9 % (11.6-14.8)
[2019-09-28 07:30] VITALS: BP 132/79; PULSE 108; RESP 18; TEMP 36.2; O2SAT 91
[2019-09-28] MEDS: ENOXAPARIN 40 MG/0.4 ML SYRINGE SUBCUT (08:03)
[2019-09-28] MEDS: glipiZIDE 5 MG TABLET 10 MG PO (08:03)
[2019-09-28] MEDS: GABAPENTIN 600 MG TABLET PO (08:03)
[2019-09-28] MEDS: METFORMIN HCL 500 MG TABLET 1000 MG PO (08:03)
[2019-09-28] MEDS: lisinopriL 10 MG TABLET PO (08:04)
[2019-09-28] MEDS: LEVOTHYROXINE 125 MCG TABLET PO (08:04)
[2019-09-28] MEDS: LORATADINE 10 MG TABLET PO (08:04)
[2019-09-28] MEDS: METOPROLOL IR 25 MG TABLET PO (08:05)
--- NOTE | 2019-09-28 08:57 | P.DS_ITS ---
History of Present Illness History of Present Illness Chief complaint: abdominal pain/vomiting Narrative: Patient is a gentleman who developed diffuse abdominal pain accompanied by nausea and vomiting yesterday morning. He had a normal bowel movement prior to the onset of this pain. He has a known her ventral hernia and has been present for 5 years. He has never had pain quite like this. He has no prior abdominal operations. He is a poorly-controlled diabetic to test his sugar about once a week. He also suffers from hypertension and has had a neck fracture. Discharge Providers Provider Date of admission: 09/26/19 20:03 Discharge Date: 09/28/19 Consults: 09/27/19 01:24 Consult to Dietitian, Adult Routine Comment: Reason For Exam: diabetic teaching Consult to Discharge Planning Routine Comment: Consult to Physical Therapy Evaluate & Treat Comment: Physician Instructions: Evaluate and Treat Discharge provider: Raj Augustine MD Summary Hospital Course Discharge Diagnosis: Small bowel obstruction secondary to incarcerated ventral hernia Acute with persistent nausea and vomiting Poorly controlled chronic diabetes mellitus type 2 Morbid obesity chronic Essential hypertension chronic controlled with medication Hypothyroidism chronic controlled with medication Chronic gastroesophageal reflux disease Chronic elevation of cholesterol controlled with medication Acute blood loss anemia secondary to operation mild Elevated lipase acute significance uncertain Hospital Course: Patient was taken emergently to the operating room where he underwent a rather complicated and difficult repair of a ventral hernia. The sac was the size of cantaloupe. His postoperative course was smooth. He was begun on liquids the day following the procedure. His advanced to a diabetic regular diet. His glucose was rather difficult to control, though it improved markedly when he tolerated his p.o. medication. He was supplemented with insulin for his elevations. He was seen by Physical therapy to assist in ambulation due to his very large size and difficulty with ambulation after major operation. He also was seen by dietary to discuss his diet and diabetes. He had a drain placed intraoperatively which was removed prior to discharge. His initial postoperative white blood cell count was quite elevated at 18 but the following morning was down to 9 with a normal differential. He was mildly anemic after his operation most likely and principally due to intraoperative blood loss. He was discharged to follow up in the office in about 2 weeks when he will need his kayla removed. He is discharged on ibuprofen and Percocet for pain. He is to resume his other medications. He was instructed to follow up with his primary care providers regarding his diabetes and to do so soon. He was advised to check his sugar daily. Status at Discharge Cognitive/behavioral status at discharge: oriented Functional status at discharge: independent ambulation Overall status at discharge: patient is progressing back to baseline Exam Vital Signs (past 8 hours): - 09/28/19 04:00 09/28/19 04:46 09/28/19 07:30 Temperature 98.0 F 97.1 F L Pulse Rate 90 108 H Respiratory Rate 16 18 Blood Pressure 139/80 132/79 Pulse Oximetry 92 92 91 Oxygen Delivery Method Room Air,CPAP Oxygen Flow Rate 0 Objective Labs Result Diagrams: 09/28/19 06:10 09/27/19 06:15 Labs: Laboratory Results - last 24 hr 09/28/19 06:10 WBC 9.0 D RBC 4.24 L Hgb 12.9 L Hct 38.3 L MCV 90.4 MCH 30.4 MCHC 33.6 RDW 14.9 H Plt Count 198 Neut % (Auto) 64.4 D Lymph % (Auto) 22.8 L [place] % (Auto) 9.7 Eos % (Auto) 2.4 Baso % (Auto) 0.7 Neut # (Auto) 5800 Lymph # (Auto) 2000 [place] # (Auto) 900 Eos # (Auto) 200 Baso # (Auto) 100 Discharge Plan Discharge Plan Patient Disposition: Home Discharge orders & Medications Prescriptions: New oxycodone-acetaminophen [Percocet] 5-325 mg tablet See Rx Instructions .ROUTE .COMPLEX PRN (Reason: painful procedure) Qty: 20 RF: 0 ibuprofen 600 mg tablet 600 mg PO Q6H PRN (Reason: pain) Qty: 20 RF: 1 Continued gabapentin 600 mg Tablet 600 mg PO BID RF: 0 magnesium oxide 420 mg tablet 420 mg PO BID RF: 0 glipizide 10 mg tablet 10 mg PO BID RF: 0 levothyroxine 125 mcg Tablet 125 mcg PO BID RF: 0 lisinopril 10 mg tablet 10 mg PO DAILY RF: 0 omeprazole 20 mg Capsule,Delayed Release(Dr/Ec) 20 mg PO DAILY RF: 0 loratadine 10 mg tablet 10 mg PO DAILY RF: 0 metoprolol tartrate 25 mg tablet 25 mg PO BID RF: 0 Ozempic 0.25 mg or 0.5 mg(2 mg/1.5 mL) Pen Injector 0.25 mg SUBCUT QWEEK RF: 0 metformin 1,000 mg tablet 1 tab-cap PO BID RF: 0 rosuvastatin 10 mg tablet RF: 0 Follow up/Referrals: Raj Augustine MD [Physician] - 10/11/19 10:00 am (If you need to reach a doctor please call our office. If our office is not open please listen to the entire message and at the end you will be connected with the page zinc chloride operator. They will page the doctor on-call.) Discharge Health Status Multidrug resistant organism: No MDRO Diet/Activity/Treatments Diet: Diet as Tolerated Activity: Do not lift over 10 lb or strain for the next 6 weeks. You may walk. No pool or tub until your kayla are out. You may shower. Skin/Wound/Dressing Care Report to your healthcare provider any signs of infection, such as:: increased pain, unusual drainage and unusual redness Dressing: You may leave her wound uncovered if desired. You may wear the elastic binder support if it is helpful. Quality VTE Deep Vein Thrombosis/Pulmonary Embolism Present on Admission: No
[2019-09-28] MEDS: INSULIN ASPART 100 UNIT/ML INSULN PEN SUBCUT ×2 (10:01→12:18)
[2019-09-28] MEDS: MAGNESIUM OXIDE 400 MG TABLET PO ×2 (11:00→11:03)
[2019-09-28 11:42] VITALS: BP 153/92; PULSE 106; RESP 20; TEMP 36.6; O2SAT 92
--- NOTE | 2019-09-28 16:04 | PC.NURSE ---
Patient A/O x3. KEKE drain removed, patient tolerated well. Patient able to shower independently, incision redressed with ABD pad and tape, binder on. Patient verbalizes understanding in regards to discharge instructions, including s/s of infection, follow up with Sx for staple removal in 7-10 days. IV removed. Patient tolerated well. Patient discharged via wheelchair, home medications returned to patient from pharmacy.
== END 2019-09-28 13:30 | disposition home or self-care (01) | DRG 336 ==
LOC: ED 14:58 → AC 09-27 09:42
PROVIDERS: Admitting Provider Specialist; Emergency Provider Nurse Practitioner Family; Visit Provider Specialist
DX: K43.6 Other and unspecified ventral hernia with obstruction, without gangrene (principal); Z68.42 Body mass index [BMI] 45.0-49.9, adult; K66.0 Peritoneal adhesions (postprocedural) (postinfection); E66.01 Morbid (severe) obesity due to excess calories; E11.65 Type 2 diabetes mellitus with hyperglycemia; K21.9 Gastro-esophageal reflux disease without esophagitis; I10 Essential (primary) hypertension; E03.9 Hypothyroidism, unspecified; E78.5 Hyperlipidemia, unspecified; Z79.84 Long term (current) use of oral hypoglycemic drugs
CPT/HCPCS: 36415; 49561; 74022; 74177; 80048; 80053; 81003; 81015; 82150; 82550; 82553; 82962; 83605; 83690; 83735; 84145; 84484; 85025; 85610; 85730; 93005; 96361; 96374; 96375; 96376; 97161; 99222; 99285; C1781; J0330; J0690; J1200; J1650; J1885; J2270; J2274; J2405; J2704; J2930; J3010; Q9967

== ENCOUNTER 2022-05-26 11:11 | Inpatient (IN) | payer OTHER, SELFPAY ==
[2019-10-11 13:27] VITALS: BMI 48.6
[2022-05-26 11:25] VITALS: BP 127/78; PULSE 114; RESP 15; TEMP 36.1; O2SAT 97; BMI 38.2
--- NOTE | 2022-05-26 14:53 | PC.NURSE ---
Reports noticed tender area at top of gluteal cleft that started mid last week. Pain 8-10 with palpation. Small spot that looks like it has been open or is about to open and drain, but pt denies any drainage on underwear or pants.
--- NOTE | 2022-05-26 16:12 | DI.US.S_ITS ---
PROCEDURE: US ABDOMEN LIMITED INDICATIONS: SOFT TISSUE MASS - SHAKEEL FOR DRAINAGE TECHNIQUE: Real-time focused scanning was performed of the abdomen, with image documentation. COMPARISON: None. FINDINGS: There is a complex fluid collection seen involving the lower spinal region with mild surrounding vascularity, which measures 5.1 x 5.2 x 2.9 cm. The overlying skin was marked by the technologist with a sharpie marker. IMPRESSION: Likely late phlegmon versus early abscess, which was marked for drainage on the overlying skin. Dictated by: Jean Marie Cruz M.D. on 05/26/2022 at 17:01 Approved by: Jean Marie Cruz M.D. on 05/26/2022 at 17:02
--- NOTE | 2022-05-26 16:13 | ED_ITS ---
HPI - Skin/Abscess/Foreign Bdy General Chief complaint: Skin/Abscess/Foreign Body Stated complaint: mass on lower back Time Seen by Provider: 05/26/22 16:01 Source: patient Mode of arrival: Ambulatory Limitations: no limitations History of Present Illness HPI narrative: Patient here with , complains of supra sacral mass/lesion. No prior history of pilonidal cyst or abscess. Patient is diabetic. Patient noticed area of discomfort about a week ago. Since then has gotten bigger and more indurated. No drainage. Related Data Home Medications Medication Instructions Recorded Confirmed gabapentin 600 mg tablet 600 mg PO TID 09/26/19 05/26/22 levothyroxine 125 mcg tablet 125 mcg PO BID 09/26/19 05/26/22 lisinopril 10 mg tablet 10 mg PO DAILY 09/26/19 05/26/22 loratadine 10 mg tablet 10 mg PO DAILY 09/26/19 05/27/22 magnesium oxide 420 mg tablet 420 mg PO BID 09/26/19 05/26/22 metoprolol tartrate 25 mg tablet 25 mg PO BID 09/26/19 05/26/22 omeprazole 20 mg capsule,delayed 20 mg PO DAILY 09/26/19 05/26/22 release metformin 500 mg tablet,extended 2,000 mg PO BID ##0 09/28/19 05/27/22 release 24hr rosuvastatin 10 mg tablet 5 mg PO DAILY 09/28/19 05/26/22 amitriptyline 25 mg tablet 25 mg PO BEDTIME 05/26/22 05/26/22 empagliflozin 25 mg tablet 12.5 mg PO DAILY 05/26/22 05/26/22 semaglutide 1 mg/dose (2 mg/1.5 1 mg SUBCUT QWEEK 05/26/22 05/27/22 mL) subcutaneous pen injector Previous Rx's Medication Instructions Recorded ibuprofen 600 mg tablet 600 mg PO Q6H PRN pain #20 tabs 09/28/19 doxycycline hyclate 100 mg capsule 100 mg PO BID #10 caps 05/28/22 Allergies Allergy/AdvReac Type Severity Reaction Status Date / Time Iodinated Contrast Media Allergy Intermediate Hives Verified 05/27/22 11:21 Review of Systems Review of Systems Narrative: GENERAL: negative chills, fatigue, malaise, fever, sweats. HEENT: negative sinus pain, ear pain, sore throat RESPIRATORY: negative dyspnea, cough CARDIOVASCULAR: negative chest pain, palpitations GASTROINTESTINAL: negative nausea, vomiting, abdominal pain : negative dysuria, frequency, hematuria MUSCULOSKELETAL: negative muscle or bony pain SKIN: negative rash, positive skin lesions NEUROLOGIC: negative weakness, numbness Patient History Medical History Diabetes GERD (gastroesophageal reflux disease) Hernia, umbilical Hypertension Hypothyroidism Morbid obesity Ventral hernia with bowel obstruction Surgical History H/O cervical spine surgery (~2002) History of hernia repair Family History Mother Stroke Father COPD (chronic obstructive pulmonary disease) Social History household members: spouse Smoking Status: Former smoker Smoking Status: Never smoker alcohol intake frequency: holidays/special occasions only Substance Use Type: does not use Exam Narrative Exam Narrative: GENERAL: in no distress, not toxic not dyspneic HEAD: Normocephalic. EYES: Pupils equal round No scleral icterus. BACK: No flank tenderness. At supra sacral area there is an area of induration 10 cm in diameter. No central fluctuance. It is tender to touch. No radiating red streaking. NEURO: AOx4. SKIN: Warm and dry PSYCH: Not anxious, is cooperative Initial Vital Signs Initial Vital Signs: Vital Signs Temperature 97.0 F L 05/26/22 11:25 Pulse Rate 114 H 05/26/22 11:25 Respiratory Rate 15 05/26/22 11:25 Blood Pressure 127/78 05/26/22 11:25 Pulse Oximetry 97 05/26/22 11:25 Oxygen Delivery Method 05/26/22 11:25 Course Course Course Narrative: No new issues during course of stay Orders Ordered: Discontinued Medications Acetaminophen (Acetaminophen 325 Mg Tablet) 650 mg PO Q6H PRN PRN Reason: Fever/Mild Pain (1-3) Amitriptyline HCl (Amitriptyline 25 Mg Tablet) 25 mg PO BEDTIME EMMIE Last Admin: 05/27/22 21:01 Dose: 25 mg Documented By: Admin: 05/26/22 21:46 Dose: 25 mg Documented By: MARGARET Atorvastatin Calcium (Atorvastatin 20 Mg Tablet) 10 mg PO DAILY [facility] Last Admin: 05/28/22 09:50 Dose: 10 mg Documented By: Admin: 05/27/22 09:55 Dose: 10 mg Documented By: ANATOLY Calcium Carbonate (Calcium Carbonate 500 Mg Tab) 1,000 mg PO Q4HR PRN PRN Reason: Dyspepsia Dextrose (Dextrose 50 % In Water 25 Gm/50 Ml Syringe) 25 gm IV PRN PRN PRN Reason: Hypoglycemia Gabapentin (Gabapentin 600 Mg Tablet) 600 mg PO TID [facility] Last Admin: 05/28/22 09:50 Dose: 600 mg Documented By: Admin: 05/27/22 21:01 Dose: 600 mg Documented By: Admin: 05/27/22 16:45 Dose: Not Given Documented By: Admin: 05/27/22 09:55 Dose: 600 mg Documented By: Admin: 05/26/22 21:46 Dose: 600 mg Documented By: MARGARET Hydromorphone HCl (Hydromorphone 1 Mg Inj) 1 mg IV Q4H PRN PRN Reason: Pain, Severe (7-10) Last Admin: 05/27/22 14:08 Dose: 1 mg Documented By: ANATOLY Hydromorphone HCl (Hydromorphone 2 Mg Inj) 0 mg IV Q5M PRN PRN Reason: Pain, Severe (7-10) Clindamycin Phosphate (Cleocin) 600 mg in 50 mls @ 50 mls/hr IV NOW ONE Stop: 05/26/22 19:31 Last Infusion: 05/26/22 20:58 Dose: 0 mls/hr Documented By: Admin: 05/26/22 19:51 Dose: 50 mls/hr Documented By: PATO Dextrose/Sodium Chloride (Dextrose 5%-0.9% Ns) 1,000 mls @ 60 mls/hr IV CONT [facility] Last Admin: 05/27/22 23:09 Dose: 60 mls/hr Documented By: Infusion: 05/27/22 14:27 Dose: 60 mls/hr Documented By: Admin: 05/26/22 21:46 Dose: 60 mls/hr Documented By: MARGARET Cefepime HCl 2 gm/ Sodium (Chloride) 100 mls @ 200 mls/hr IV Q8HR [facility] Last Admin: 05/28/22 14:00 Dose: Not Given Documented By: Infusion: 05/28/22 06:28 Dose: 0 mls/hr Documented By: Admin: 05/28/22 05:42 Dose: 200 mls/hr Documented By: Infusion: 05/27/22 23:01 Dose: 0 mls/hr Documented By: Admin: 05/27/22 22:24 Dose: 200 mls/hr Documented By: Infusion: 05/27/22 19:00 Dose: 200 mls/hr Documented By: Admin: 05/27/22 14:08 Dose: 200 mls/hr Documented By: Infusion: 05/27/22 07:00 Dose: 0 mls/hr Documented By: Admin: 05/27/22 06:02 Dose: 200 mls/hr Documented By: Infusion: 05/26/22 23:25 Dose: 0 mls/hr Documented By: Admin: 05/26/22 22:35 Dose: 200 mls/hr Documented By: AKP Vancomycin HCl/Dextrose (Vancomycin) 2,000 mg in 400 mls @ 200 mls/hr IV Q12H [facility] Last Admin: 05/26/22 22:29 Dose: Not Given Documented By: AMH Vancomycin HCl/Dextrose (Vancomycin) 2,000 mg in 400 mls @ 200 mls/hr IV Q12H [facility] Last Admin: 05/27/22 16:46 Dose: Not Given Documented By: Infusion: 05/27/22 01:30 Dose: 0 mls/hr Documented By: Admin: 05/26/22 23:30 Dose: 200 mls/hr Documented By: MARGARET Lactated Ringer's (Lactated Ringers) 1,000 mls @ 42 mls/hr IV CONT [facility] Last Infusion: 05/27/22 13:11 Dose: 0 mls/hr Documented By: Admin: 05/27/22 11:49 Dose: 42 mls/hr Documented By: SB Vancomycin HCl/Dextrose (Vancomycin) 2,000 mg in 400 mls @ 200 mls/hr IV Q24H [facility] Last Infusion: 05/28/22 01:18 Dose: 0 mls/hr Documented By: Admin: 05/27/22 23:01 Dose: 200 mls/hr Documented By: [facility] Insulin Human Lispro (Insulin Lispro 100 Unit/Ml 3ml Vial) 0 unit SUBCUT ACHS [facility]; Protocol Last Admin: 05/26/22 21:32 Dose: Not Given Documented By: MARGARET Insulin Human Lispro (Insulin Lispro 100 Unit/Ml 3ml Vial) 0 unit SUBCUT Q6H [facility]; Protocol Last Admin: 05/27/22 17:20 Dose: 1 unit Documented By: ANATOLY Co-signed By: FRANDY Admin: 05/27/22 13:38 Dose: Not Given Documented By: Admin: 05/27/22 06:18 Dose: 1 unit Documented By: MARGARET Co-signed By: Insulin Human Lispro (Insulin Lispro 100 Unit/Ml 3ml Vial) 0 unit SUBCUT [facility]; Protocol Last Admin: 05/28/22 12:46 Dose: Not Given Documented By: Admin: 05/28/22 08:06 Dose: Not Given Documented By: Admin: 05/27/22 21:02 Dose: Not Given Documented By: MARGARET Levothyroxine Sodium (Levothyroxine 150 Mcg Tablet) 300 mcg PO BID [facility] Levothyroxine Sodium (Levothyroxine 125 Mcg Tablet) 125 mcg PO BID [facility] Last Admin: 05/28/22 10:04 Dose: Not Given Documented By: Admin: 05/27/22 21:02 Dose: 125 mcg Documented By: Admin: 05/27/22 09:55 Dose: 125 mcg Documented By: ANATOLY Lisinopril (Lisinopril 10 Mg Tablet) 10 mg PO DAILY [facility] Last Admin: 05/28/22 09:50 Dose: 10 mg Documented By: Admin: 05/27/22 09:55 Dose: 10 mg Documented By: ANATOLY Magnesium Oxide (Magnesium Oxide 400 Mg Tablet) 400 mg PO BID [facility] Last Admin: 05/28/22 09:50 Dose: 400 mg Documented By: Admin: 05/27/22 21:02 Dose: 400 mg Documented By: Admin: 05/27/22 09:55 Dose: 400 mg Documented By: Admin: 05/26/22 21:46 Dose: 400 mg Documented By: MARGARET Metformin HCl (Metformin Xr 500 Mg Tablet) 2,000 mg PO BID [facility] Last Admin: 05/28/22 09:50 Dose: 2,000 mg Documented By: Admin: 05/27/22 21:01 Dose: 2,000 mg Documented By: MARGARET Metoprolol Tartrate (Metoprolol Ir 25 Mg Tablet) 25 mg PO BID [facility] Last Admin: 05/28/22 09:52 Dose: 25 mg Documented By: Admin: 05/27/22 21:02 Dose: 25 mg Documented By: Admin: 05/27/22 09:55 Dose: 25 mg Documented By: Admin: 05/26/22 21:46 Dose: 25 mg Documented By: MARGARET Naloxone HCl (Naloxone 0.4 Mg/Ml Vial) 0.2 mg IV Q2MIN PRN PRN Reason: Opiate Reversal Semaglutide 1 Mg/Dose (2 Mg/1.5 Ml) Pen Injector 1 mg SUBCUT Tu@0900 [facility] Last Admin: 05/27/22 09:56 Dose: 1 mg Documented By: ANATOLY Ondansetron HCl (Ondansetron 4 Mg/2 Ml Inj) 4 mg IV Q2HR PRN PRN Reason: Nausea And Vomiting Oxycodone HCl (Oxycodone Ir 5 Mg Tablet) 5 mg PO PACUNOW PRN PRN Reason: Mild or moderate pain Pantoprazole Sodium (Pantoprazole Dr 20 Mg Tablet) 20 mg PO DAILY [facility] Last Admin: 05/28/22 09:50 Dose: 20 mg Documented By: Admin: 05/27/22 09:55 Dose: 20 mg Documented By: ANATOLY Vancomycin HCl (Vancomycin Trough) 1 request [facility] [place] [address] [facility] Stop: 05/29/22 22:31 Vancomycin HCl (Vancomycin Peak) 1 request [facility] [address] [facility] Stop: 05/30/22 02:01 Reevaluation(s) Reevaluation #1: Attempted needle aspiration using 1% lidocaine with epinephrine without success. Reviewed with patient might discussion with general surgeon and will need admission IV antibiotics and incision drainage tomorrow. They agree with treatment plan Time: 18:36 Consultations Consultation #1: Reviewed with Dr. Diaz. I have tried needle aspiration with 20 gauge lumbar puncture needle without success. 3 in of the 5 in needle was buried under the skin and still no fluid. She recommends admit to hospitalist and she will take to OR in the morning. Consultation #2: Spoke with hospitalist, dr bañuelos, will admit Time: 18:38 Vital Signs Vital signs: Vital Signs - 8 hr 05/26/22 11:25 05/26/22 17:37 05/26/22 17:38 Temperature 97.0 F L Pulse Rate 114 H 98 H 98 H Respiratory Rate 15 Blood Pressure 127/78 Pulse Oximetry 97 97 98 Oxygen Delivery Method Room Air 05/26/22 17:38 Temperature Pulse Rate Respiratory Rate Blood Pressure 125/71 Pulse Oximetry Oxygen Delivery Method MDM - Skin/Abscess/Foreign Bdy Differential Diagnosis Differential diagnosis: Likely abscess of skin or subcutaneous tissue, dermatophytosis, cellulitis and contact dermatitis Lab Data Result diagrams: 05/28/22 06:05 05/28/22 06:05 Imaging Data Ultrasound soft tissue: Radiologist's Impression: [place] [address] Ultrasound Report Signed Patient: Tirso Rooney MR#: [id number] : 1970 Acct:[id number] Age/Sex: 52 / M Date of Service: 05/26/22 Loc: ED Accession Number: [id number] ?? Procedure: US abdomen limited Ordering Provider: Hi Portillo MD PROCEDURE: US ABDOMEN LIMITED ? INDICATIONS:? SOFT TISSUE MASS - SHAKEEL FOR DRAINAGE ? TECHNIQUE:? Real-time focused scanning was performed of the abdomen, with image documentation.? ? COMPARISON:? None. ? FINDINGS:? There is a complex fluid collection seen involving the lower spinal region with mild surrounding vascularity, which measures 5.1 x 5.2 x 2.9 cm.? The overlying skin was marked by the technologist with a sharpie marker. ? ? ? IMPRESSION:? Likely late phlegmon versus early abscess, which was marked for drainage on the overlying skin.? ? Dictated by: Jean Marie Cruz M.D. on 05/26/2022 at 17:01 ? ? Approved by: Jean Marie Cruz M.D. on 05/26/2022 at 17:02 ? MDM Narrative Medical decision making narrative: Appropriate for admission. Will need IV antibiotics and reassessment by general surgery for incision and drainage in the morning. Reviewed with patient and and they do agree for admit. Reviewed with surgeon as well. Reviewed with hospitalist as well. Discharge Plan Departure Patient Disposition: Admitted as Observation Clinical Impression: Abscess of skin or subcutaneous tissue Admit Date/Time: 05/26/22 18:38 Admit Provider: Joseph Vargas
[2022-05-26 17:37] VITALS: PULSE 98; O2SAT 97
[2022-05-26 17:38] VITALS: BP 125/71; PULSE 98; O2SAT 98
[2022-05-26 19:27] LABS: Hematocrit 40.3 % (41-53); Hemoglobin 13.1 g/dL (13.5-17.5); Mean Corpuscular Hemoglobin 26.7 PG (26-34); Red Blood Cell Count 4.91 X10^6/uL (4.5-5.9); White Blood Cell Count 11.6 X10^3/uL (4.5-11.0)
[2022-05-26 19:28] LABS: Add Manual Diff / Slide Review NO; Basophils Absolute Auto 100 /uL (0-100); Basophils Percent Auto 0.6 % (0-2); Eosinophils Absolute Auto 400 /uL (0-450); Eosinophils Percent Auto 3.2 % (2-4); Lymphocytes Absolute Auto 1700 /uL (1100-4500); Lymphocytes Percent Auto 14.7 % (25-40); Mean Corpuscular HGB Conc 32.6 % (30-36); Monocytes Absolute Auto 1100 /uL (0-900); Neutrophils Absolute Auto 8400 /uL (1500-7000); Neutrophils Percent Auto 72.5 % (50-75); Platelet Count 314 X10^3/uL (150-400); Red Cell Distribution Width 15.9 % (11.6-14.8)
[2022-05-26 19:35] LABS: Alanine Aminotransferase 16 IU/L (<50); Albumin 3.9 g/dL (3.5-5.0); Albumin Globulin Ratio 1.1 (1.0-2.8); Alkaline Phosphatase 106 U/L (38-126); Aspartate Aminotransferase 16 IU/L (17-59); BUN Creatinine Ratio 9.6 (6-22); Bilirubin Total 0.4 mg/dL (0.2-1.3); Blood Urea Nitrogen 11 mg/dL (9-20); Carbon Dioxide 26 mmol/L (22-32); Chloride 100 mmol/L (98-107); Estimated Glomerular Filt Rate > 60 mL/min (>60); Globulin 3.7 g/dL (1.7-4.1); Glucose 95 mg/dL (70-100); HEMOLYSIS < 15 (0-50); Potassium 3.9 mmol/L (3.4-5.1); Sodium 137 mmol/L (137-145); Total Protein 7.6 g/dL (6.3-8.2)
[2022-05-26 19:36] LABS: Lactate (Lactic Acid) 1.4 mmol/L (0.7-2.1)
[2022-05-26] MEDS: CLINDAMYCIN 600 MG/50 ML PIGGYBACK 50 MG IV (19:51)
[2022-05-26 19:52] LABS: Procalcitonin 0.13 ng/mL (<0.5)
--- NOTE | 2022-05-26 20:05 | DI.RAD.S_ITS ---
PROCEDURE: XR CHEST 2V INDICATIONS: infection TECHNIQUE: 2 views of the chest were acquired. COMPARISON: None. FINDINGS: Surgical changes and devices: None. Lungs and pleura: Lungs are clear. No pleural effusions or pneumothorax. Mediastinum: Mediastinal contours are normal. Heart size is normal. Bones and chest wall: No suspicious bony abnormalities. Soft tissues appear unremarkable. IMPRESSION: No acute pulmonary process. Dictated by: Raven Shen M.D. on 05/26/2022 at 20:57 Approved by: Raven Shen M.D. on 05/26/2022 at 20:57
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
[2022-05-26 20:29] LABS: COVID19 -Nasal RAPID Negative (Negative)
[2022-05-26 20:45] LABS: C-Reactive Protein Quant 4.5 mg/dL (<1.0); Hemoglobin A1C% w Est Avg Glu 6.2 % (4.0-6.0)
[2022-05-26 20:51] LABS: NT-proBNP (BNP-Adult 18+) 47 pg/mL (<125)
[2022-05-26 20:53] LABS: Erythrocyte Sedimentation Rate 62 MM/HR (0-15)
[2022-05-26 21:03] VITALS: BP 131/87; PULSE 100; O2SAT 99
[2022-05-26 21:10] VITALS: BP 133/85; PULSE 107; RESP 18; TEMP 36.7; O2SAT 96
[2022-05-26 21:12] LABS: Magnesium 1.8 mg/dL (1.6-2.3)
[2022-05-26] MEDS: MAGNESIUM OXIDE 400 MG TABLET PO (21:46)
[2022-05-26] MEDS: GABAPENTIN 600 MG TABLET PO (21:46)
[2022-05-26] MEDS: DEXTROSE 5%-0.9% NS 1,000 ML 60 ML IV (21:46)
[2022-05-26] MEDS: METOPROLOL IR 25 MG TABLET PO (21:46)
[2022-05-26] MEDS: AMITRIPTYLINE 25 MG TABLET PO (21:46)
[2022-05-26 22:02] VITALS: BMI 38.2
[2022-05-26] MEDS: CEFEPIME 2 GM in SODIUM CHLORIDE 0.9% 100 ML IV (22:35)
[2022-05-26] MEDS: VANCOMYCIN 2,000 MG/400 ML PIGGYBACK 200 MG IV (23:30)
[2022-05-26 23:46] LABS: Appearance Urine UA CLEAR; Bilirubin Urine UA NEGATIVE (NEGATIVE); Color Urine UA YELLOW; Glucose Urine UA TRACE g/dL (Negative); Ketones Urine UA 1+ (NEGATIVE); Leukocyte Esterase Urine UA NEGATIVE (NEGATIVE); Nitrite Urine UA NEGATIVE (Negative); Occult Blood Urine UA NEGATIVE (Negative); Protein Urine UA 1+ (Negative)
[2022-05-26 23:50] LABS: Bacteria Urine None Seen; Culture Indicated Urine Cult Not Indicated; RBC Urine None Seen (0-5/HPF); Urine Comments Microscopic Normal; WBC Urine None Seen (0-5/HPF)
--- NOTE | 2022-05-26 23:53 | PC.ADMIT ---
[facility] [facility] Admission Note: The patient,Tirso Rooney,52 y/o, was given written information regarding hospital policies, unit procedures and contact persons. Patient's smoking status: Former smoker. Vital Signs - 8 hr 05/26/22 17:37 05/26/22 17:38 05/26/22 17:38 Temperature Pulse Rate 98 H 98 H Respiratory Rate Blood Pressure 125/71 Pulse Oximetry 97 98 Oxygen Delivery Method Oxygen Flow Rate 05/26/22 21:03 05/26/22 21:03 05/26/22 21:10 Temperature 98.0 F Pulse Rate 100 H 107 H Respiratory Rate 18 Blood Pressure 131/87 133/85 Pulse Oximetry 99 96 Oxygen Delivery Method Oxygen Flow Rate 0 05/26/22 23:47 Temperature Pulse Rate Respiratory Rate Blood Pressure Pulse Oximetry Oxygen Delivery Method Room Air Oxygen Flow Rate Patient admitted to room 203 at 2110 from ER per wheelchair due to sacral abscess. Is alert and oriented. Breath sounds CTA with RA sat of 96%. Reports he has sleep apnea and does not have CPAP with him so placed on oxygen at 2L/min per NC for overnight and instructed him to have bring his CPAP in tomorrow. HRR but tachy at 108 bpm. Denies nausea. BT present and abdomen is soft; denies constipation or diarrhea. Voiding per urinal and denies dysuria, frequency or urgency. Is able to move himself in bed; instructed to keep off back as much as possible. Bilateral calf SCD's applied. Does complain of discomfort in sacrum but declines need for pain medication. Has approximately 10cm red, firm area at sacrum which is outlined. Warm, moist compress applied per [employer]ER order after discussion with coordinator, Julia. Patient states he has no loss of sensation in sacral area and verbalizes ability to remove warm pack if becomes too warm. Fall risk score is high and bed alarm is activated. Oriented to call light and bed controls. Is aware he will be NPO after 0000.
[2022-05-27] VITALS (17 sets, daily range): BP systolic 104–133; BP diastolic 58–90; PULSE 79–104; RESP 8–20; TEMP 35.6–37.4; O2SAT 92–99; BMI 38.2
[2022-05-27 00:18] LABS: TSH w/ Reflex to FT4 0.96 uIU/mL (0.47-4.68)
--- NOTE | 2022-05-27 01:00 | DI.MRI.S_ITS ---
PROCEDURE: MR LUMBAR SPINE WO/W CON INDICATIONS: Sacral abcess poss osteo TECHNIQUE: Noncontrast sagittal T1 spin echo and T2 fast spin echo, sagittal STIR, axial T1 and T2 fast spin echo through the lumbar spine. In cases with scoliosis, additional coronal T2 fast spin echo may be performed. After the administration of contrast, sagittal and axial T1 spin echo with fat saturation through the lumbar spine. COMPARISON: None. FINDINGS: Image quality: Excellent. Alignment and curvature: There is minimal retrolisthesis seen at L2-L3, L3-L4, L4-L5, and L5-S1. Marrow: Marrow is of normal overall signal. No acute vertebral body compression fractures. No suspicious marrow enhancement. Spinal cord: Conus medullaris terminates at the L1 level. Visualized spinal cord demonstrates normal signal, without suspicious enhancement. Paraspinous soft tissues: Within the posterior soft tissues, centered at the L5 level, there is a superficial fluid collection seen that measures up to 5 cm. There is surrounding moderate soft tissue edema and enhancement seen. No muscular are other deep tissue involvement can be seen. No bony involvement is seen. T12-L1: Within normal limits. L1-L2: The disc height and disk signal are relatively well-preserved. Mild generalized disc bulge is seen. Mild facet joint hypertrophy is seen. There is moderate right-sided and mild left-sided neural foraminal narrowing. Mild to moderate central canal narrowing is seen. L2-L3: Mild loss of disc height is seen. Loss of disc signal is seen. Moderate generalized disc bulge is seen. There is a superimposed central disc extrusion, with inferior migration of the disc material. Mild facet joint hypertrophy is seen. There is at least moderate left-sided and moderate right-sided neural foraminal narrowing. At least moderate central canal narrowing can be seen. L3-L4: Mild loss of disc height is seen. Loss of disc signal is seen. Moderate disc bulge is seen, with a central disc extrusion, with inferior migration of the disc material. Moderate facet joint hypertrophy is seen. There is at least moderate bilateral neural foraminal narrowing seen. Moderate to severe central canal narrowing is seen, as on series 5, image 21. L4-L5: The disc height is well-preserved. Loss of disc signal is seen at this level. Moderate generalized disc bulge is seen. There is a mild superimposed central disc extrusion, with mild inferior migration of the disc material. Moderate facet joint hypertrophy is seen. There is at least moderate bilateral neural foraminal narrowing seen. There is a degree of compression seen upon the exiting nerve roots. At least moderate central canal narrowing is seen. L5-S1: The disc height is well-preserved. Loss of disc signal is seen at this level. Moderate disc bulge is seen, which is eccentric to the right. A central disc extrusion can be seen. Mild facet joint hypertrophy is seen. There is moderate to severe bilateral neural foraminal narrowing seen, with an associated a degree of compression seen upon the exiting nerve roots. At least moderate central canal narrowing is seen. IMPRESSION: There is a 5 cm superficial soft tissue abscess seen, without deep tissue of bony involvement seen. No findings of osteomyelitis. Multiple levels of prominent underlying lumbar spine degenerative change are seen, with several levels of disc extrusions. Moderate to severe central canal narrowing is seen at L3-L4 and there is at least moderate central canal narrowing seen at L2-L3, L4-L5, and at L5-S1. Several sites of significant neural foraminal narrowing can be seen, with associated exiting nerve root compression. Dictated by: Jean Marie Cruz M.D. on 05/27/2022 at 10:26 Approved by: Jean Marie Cruz M.D. on 05/27/2022 at 10:32
[2022-05-27] MEDS: CEFEPIME 2 GM in SODIUM CHLORIDE 0.9% 100 ML IV ×3 (06:02→22:24)
[2022-05-27] MEDS: INSULIN LISPRO 100 UNIT/ML 3ML VIAL SUBCUT ×2 (06:18→17:20)
[2022-05-27 07:15] LABS: Add Manual Diff / Slide Review NO; Basophils Absolute Auto 100 /uL (0-100); Basophils Percent Auto 0.5 % (0-2); Eosinophils Absolute Auto 400 /uL (0-450); Eosinophils Percent Auto 3.5 % (2-4); Hematocrit 34.8 % (41-53); Hemoglobin 11.6 g/dL (13.5-17.5); Lymphocytes Absolute Auto 1600 /uL (1100-4500); Lymphocytes Percent Auto 12.3 % (25-40); Mean Corpuscular HGB Conc 33.4 % (30-36); Mean Corpuscular Hemoglobin 27.2 PG (26-34); Mean Corpuscular Volume 81.4 fL (80-100); Monocytes Absolute Auto 1100 /uL (0-900); Monocytes Percent Auto 8.8 % (3-14); Neutrophils Absolute Auto 9500 /uL (1500-7000); Neutrophils Percent Auto 74.9 % (50-75); Platelet Count 309 X10^3/uL (150-400); Red Blood Cell Count 4.28 X10^6/uL (4.5-5.9); White Blood Cell Count 12.7 X10^3/uL (4.5-11.0)
[2022-05-27 07:18] LABS: INR 1.2 (0.9-1.3); Prothrombin Time 13.3 SECONDS (10.1-12.7)
[2022-05-27 07:48] LABS: Alanine Aminotransferase 13 IU/L (<50); Albumin 3.1 g/dL (3.5-5.0); Albumin Globulin Ratio 1.1 (1.0-2.8); Alkaline Phosphatase 85 U/L (38-126); Aspartate Aminotransferase 12 IU/L (17-59); BUN Creatinine Ratio 9.5 (6-22); Bilirubin Total 0.3 mg/dL (0.2-1.3); Blood Urea Nitrogen 11 mg/dL (9-20); Calcium 8.6 mg/dL (8.4-10.2); Carbon Dioxide 25 mmol/L (22-32); Chloride 102 mmol/L (98-107); Estimated Glomerular Filt Rate > 60 mL/min (>60); Globulin 2.9 g/dL (1.7-4.1); Glucose 146 mg/dL (70-100); HEMOLYSIS < 15 (0-50); Sodium 136 mmol/L (137-145)
[2022-05-27 08:00] LABS: Procalcitonin 0.13 ng/mL (<0.5)
[2022-05-27] MEDS: MAGNESIUM OXIDE 400 MG TABLET PO ×2 (09:55→21:02)
[2022-05-27] MEDS: PANTOPRAZOLE DR 20 MG TABLET PO (09:55)
[2022-05-27] MEDS: GABAPENTIN 600 MG TABLET PO ×2 (09:55→21:01)
[2022-05-27] MEDS: LEVOTHYROXINE 125 MCG TABLET PO ×2 (09:55→21:02)
[2022-05-27] MEDS: METOPROLOL IR 25 MG TABLET PO ×2 (09:55→21:02)
[2022-05-27] MEDS: ATORVASTATIN 20 MG TABLET 10 MG PO (09:55)
[2022-05-27] MEDS: lisinopriL 10 MG TABLET PO (09:55)
[2022-05-27] MEDS: SEMAGLUTIDE SUBCUT (09:56)
[2022-05-27] MEDS: INJECTOR SUBCUT (09:56)
--- NOTE | 2022-05-27 10:05 | PT.IIE ---
Current Diagnoses Cutaneous abscess, unspecified (05/26/22) Surgery Performed Operation Date: 05/27/22 11:30 Actual Procedures p Pilonidal Cyst I&D - Kiya Diaz MD Surgical History (Last Reviewed 05/27/22 @ 11:34 by Kiya Diaz MD) H/O cervical spine surgery (~2002) History of hernia repair Medical History (Last Reviewed 05/27/22 @ 11:34 by Kiya Diaz MD) Diabetes GERD (gastroesophageal reflux disease) Hernia, umbilical Hypertension Hypothyroidism Morbid obesity Ventral hernia with bowel obstruction Physical Therapy Inpatient Evaluation/Re-Eval M1 PT/OT-IP Prior Functional Status Start: 05/27/22 12:07 Freq: NEEDED Status: Active Protocol: Document 05/27/22 10:05 AB (Rec: 05/27/22 12:16 AB [email or web address]) Medical Review Prior Functional Status Medical History Reviewed Yes Communication able to make needs known Mobility and Gait pt stated that he is independent with all mobilities and ambulation without AD Social History Household Members spouse Living Arrangements House Number of Floors (Floors) One Floor Number of Stairs To Enter/Railing? 5 steps L rail ascending to enter the house Home Environment Standard Height Toilet,Tub/ Shower Home Equipment Hand Held Shower M2 PT-IP Current Condition Start: 05/27/22 12:07 Freq: NEEDED Status: Active Protocol: Document 05/27/22 10:05 AB (Rec: 05/27/22 12:16 AB [email or web address]) Physical Therapy Current Condition Current Condition Evaluation Date 05/27/22 Treatment Diagnosis pilonidal cyst; difficulty in walkiing Onset Date 05/26/22 M3 PT-IP Subjective Start: 05/27/22 12:07 Freq: NEEDED Status: Active Protocol: Document 05/27/22 10:05 AB (Rec: 05/27/22 12:16 AB [email or web address]) Subjective Physical Therapy Visit Type Type Initial Evaluation Visit Start Time 10:05 Visit Stop Time 10:20 Total Visit Minutes 15 Number of SOUND EDITOR Visits 0 Physical Therapy Visit Comments Patient Comments agreeable to do PT M4 PT-IP Mobility and Gait Start: 05/27/22 12:07 Freq: NEEDED Status: Active Protocol: Document 05/27/22 10:05 AB (Rec: 05/27/22 12:16 AB [email or web address]) PT-Bed Mobility Assessment Supine to Sit Supine to Sit Independent PT-Transfer Assessment Sit to and From Stand Sit to and from Stand Independent Equipment Transfer Assistive Device None Orthotic/Prosthetic Devices or Brace: No Gait Assessment Gait Gait Assistance Required: Standby Assistance Distance (Feet) 30 Able to Maintain Weight Bearing Status Yes During Gait Assistive Devices Assistive Device None Orthotic/Prosthetic Devices or Brace: No Gait Deviations General Gait Pattern Antalgic,Decreased Stride Length,Decreased Feet Clearance Factors Limiting Gait Function Factors Limiting Gait Function Decreased Activity Tolerance Stair Climbing Assessment Evaluation Level of Assist On Stairs Standby Assistance Devices Stair Climbing Assistive Devices Left Railing Technique/Endurance Stair Climbing Direction Ascend and Descend Stair Climbing Technique Step to Step Number of Steps Climbed 1 Query Text: Stair Climbing Set # Repetitions (reps) 3 PT-Balance Assessment Sitting Balance and Reactions Static Sitting Balance Ability Normal Dynamic Sitting Balance Ability Normal Standing Balance and Reactions Static Standing Balance Ability Good Dynamic Standing Balance Ability Good Device Used without AD M5 PT-IP Objective Assessments Start: 05/27/22 12:07 Freq: NEEDED Status: Active Protocol: Document 05/27/22 10:05 AB (Rec: 05/27/22 12:16 AB [email or web address]) Orientation Orientation/Cognition Level of Alertness Alert Orientation Name,Age,Birthday,Month,Date, Year,Day of Week,Place, Situation Language Function Ability No Deficits Noted Safety Awareness Understands Safety Issues Memory Description No Deficits Noted Gross Range of Motion Lower Extremity ROM Assessment Within Functional Limits Strength Lower Extremity Strength Hip 4-/5 Knee 4-/5 Ankle 4-/5 Sensation Assessment Sensation Gross Sensation WNL Muscle Tone Muscle Tone WNL Yes M6 PT-IP Treatment Start: 05/27/22 12:07 Freq: NEEDED Status: Active Protocol: Document 05/27/22 10:05 AB (Rec: 05/27/22 12:16 AB [email or web address]) Physical Therapy Treatment Education Education Provided Safety M7 PT-IP Assessment and Plan Start: 05/27/22 12:07 Freq: NEEDED Status: Active Protocol: Document 05/27/22 10:05 AB (Rec: 05/27/22 12:16 AB [email or web address]) PT Summary Assessment and Plan Potential Rehabilitation Potential Good Status of Condition at Evaluation Stable Summary Impairments Strength,Gait,Activity Tolerance Assessment Summary pt admitted for pilonidal cyst and is pending I&D later today. Pt is SBA with ambulation without AD and SBA provided only for safety. pt presents with antalgic gait but without LOB. informed nurse regarding pt's mobility. PT will re-assess pt's mobility after I&D and if pt continues to mobilize well, will d/c PT. pt plans to go home and spouse to assist pt. Goals Gait Goal Independent Gait Distance 150 Other Goals up/down 5 steps L rail ascending mod I Days to Meet Goals 5 Frequency of Treatment Frequency Of Treatment Once a Day Treatment Plan Physical Therapy Treatment Plan Bed Mobility Training,Transfer Training,Gait Training, Balance Retraining,Discharge Planning Recommendations To Nursing Amount of Assist Needed Standby Assistance Discharge Recommendations PT Discharge Recommendations Home with Assistance Transportation Needs at Discharge Private Vehicle
--- NOTE | 2022-05-27 11:25 | P.CONS_ITS ---
History of Present Illness Consult details Date Patient Seen: 05/27/22 Time Patient Seen: 11:25 Chief complaint: mass on lower back Reason for consult: infected pilonidal cyst Requesting provider: Hi Portillo Narrative: Several days of increasing pain in the sacral area with fever and malaise. No previous episodes. Nothing makes if better, pain is sharp and worse with pressure. I diabetic with BMI 37.7 Meds Home Medications and Allergies Home Medications Medication Instructions Recorded Confirmed Type gabapentin 600 mg tablet 600 mg PO TID 09/26/19 05/26/22 History levothyroxine 125 mcg tablet 125 mcg PO BID 09/26/19 05/26/22 History lisinopril 10 mg tablet 10 mg PO DAILY 09/26/19 05/26/22 History loratadine 10 mg tablet 10 mg PO DAILY 09/26/19 05/26/22 History magnesium oxide 420 mg tablet 420 mg PO BID 09/26/19 05/26/22 History metoprolol tartrate 25 mg tablet 25 mg PO BID 09/26/19 05/26/22 History omeprazole 20 mg capsule,delayed 20 mg PO DAILY 09/26/19 05/26/22 History release ibuprofen 600 mg tablet 600 mg PO Q6H PRN pain #20 tabs 09/28/19 05/26/22 Rx metformin 500 mg tablet,extended 2,000 mg PO DAILY ##0 09/28/19 05/26/22 History release 24hr rosuvastatin 10 mg tablet 5 mg PO DAILY 09/28/19 05/26/22 History amitriptyline 25 mg tablet 25 mg PO BEDTIME 05/26/22 05/26/22 History empagliflozin 25 mg tablet 12.5 mg PO DAILY 05/26/22 05/26/22 History semaglutide 1 mg/dose (2 mg/1.5 1 mg SUBCUT QWEEK 05/26/22 05/26/22 History mL) subcutaneous pen injector Allergies Allergy/AdvReac Type Severity Reaction Status Date / Time Iodinated Contrast Media Allergy Intermediate Hives Verified 05/27/22 11:21 Review of Systems Review of Systems ROS: Yes All systems reviewed with the patient and are negative except as otherwise documented Exam Vital Signs (past 8 hours): - 05/27/22 04:30 05/27/22 09:00 Temperature 99.0 F 97 F L Pulse Rate 102 H 89 Respiratory Rate 18 18 Blood Pressure 122/75 106/58 L Pulse Oximetry 98 97 Oxygen Flow Rate 2 2 Oxygen Delivery Method Room Air Oxygen Flow Rate 2 Const General: cooperative and ill appearing Nutritional Appearance: overweight [facility] Head: normocephalic Ears: hearing grossly normal bilaterally Eyes General: appearance normal, both eyes and all related structures Sclera: sclerae normal Neck Neck: trachea midline Chest Chest: normal inspection of the chest Resp Effort & Inspection: normal respiratory effort and able to speak in complete sentences Cardio Rate: tachycardic Rhythm: regular rhythm GI Inspection: obesity Palpation: soft Back/Spine/Pelvis Back: normal to inspection Sacroiliac Joints: tender to palpation Other: skin and subcutaneous tissue of sacral area c/w abscess and likely pilonidal disease. Skin General: turgor normal Neuro General: patient alert, patient awake and patient oriented x3 Extrem General: normal to inspection Psych Appearance: grossly normal Mental Status: mental status grossly normal Judgment: judgment good Objective Labs Result Diagrams: 05/27/22 06:34 05/27/22 06:34 Labs: Laboratory Results - last 24 hr 05/26/22 05/26/22 05/26/22 19:01 19:01 19:01 WBC 11.6 H RBC 4.91 Hgb 13.1 L Hct 40.3 L MCV 82.0 MCH 26.7 MCHC 32.6 RDW 15.9 H Plt Count 314 Neut % (Auto) 72.5 Lymph % (Auto) 14.7 L [place] % (Auto) 9.0 Eos % (Auto) 3.2 Baso % (Auto) 0.6 Neut # (Auto) 8400 H Lymph # (Auto) 1700 [place] # (Auto) 1100 H Eos # (Auto) 400 Baso # (Auto) 100 ESR PT INR Sodium 137 Potassium 3.9 Chloride 100 Carbon Dioxide 26 BUN 11 Creatinine 1.15 Estimated GFR > 60 BUN/Creatinine Ratio 9.6 Glucose 95 Hemoglobin A1c Lactate 1.4 Calcium 9.0 Magnesium Total Bilirubin 0.4 AST 16 L ALT 16 Alkaline Phosphatase 106 C-Reactive Protein NT-Pro-B Natriuret Pep Total Protein 7.6 Albumin 3.9 Globulin 3.7 Albumin/Globulin Ratio 1.1 Procalcitonin TSH Urine Color Urine Appearance Urine pH Ur Specific [place] Urine Protein Urine Glucose (UA) Urine Ketones Urine Occult Blood Urine Nitrate Urine Bilirubin Urine Urobilinogen Ur Leukocyte Esterase Urine RBC Urine WBC Urine Bacteria Ur Culture Indicated? Micro UA Comment Nasal Screen MRSA (PCR) SARS-CoV-2 (PCR) 05/26/22 05/26/22 05/26/22 19:01 19:01 19:01 WBC RBC Hgb Hct MCV MCH MCHC RDW Plt Count Neut % (Auto) Lymph % (Auto) [place] % (Auto) Eos % (Auto) Baso % (Auto) Neut # (Auto) Lymph # (Auto) [place] # (Auto) Eos # (Auto) Baso # (Auto) ESR PT INR Sodium Potassium Chloride Carbon Dioxide BUN Creatinine Estimated GFR BUN/Creatinine Ratio Glucose Hemoglobin A1c Lactate Calcium Magnesium 1.8 Total Bilirubin AST ALT Alkaline Phosphatase C-Reactive Protein NT-Pro-B Natriuret Pep 47 Total Protein Albumin Globulin Albumin/Globulin Ratio Procalcitonin 0.13 TSH Urine Color Urine Appearance Urine pH Ur Specific [place] Urine Protein Urine Glucose (UA) Urine Ketones Urine Occult Blood Urine Nitrate Urine Bilirubin Urine Urobilinogen Ur Leukocyte Esterase Urine RBC Urine WBC Urine Bacteria Ur Culture Indicated? Micro UA Comment Nasal Screen MRSA (PCR) SARS-CoV-2 (PCR) 05/26/22 05/26/22 05/26/22 19:01 19:01 19:01 WBC RBC Hgb Hct MCV MCH MCHC RDW Plt Count Neut % (Auto) Lymph % (Auto) [place] % (Auto) Eos % (Auto) Baso % (Auto) Neut # (Auto) Lymph # (Auto) [place] # (Auto) Eos # (Auto) Baso # (Auto) ESR 62 H PT INR Sodium Potassium Chloride Carbon Dioxide BUN Creatinine Estimated GFR BUN/Creatinine Ratio Glucose Hemoglobin A1c 6.2 H Lactate Calcium Magnesium Total Bilirubin AST ALT Alkaline Phosphatase C-Reactive Protein 4.5 H NT-Pro-B Natriuret Pep Total Protein Albumin Globulin Albumin/Globulin Ratio Procalcitonin TSH Urine Color Urine Appearance Urine pH Ur Specific [place] Urine Protein Urine Glucose (UA) Urine Ketones Urine Occult Blood Urine Nitrate Urine Bilirubin Urine Urobilinogen Ur Leukocyte Esterase Urine RBC Urine WBC Urine Bacteria Ur Culture Indicated? Micro UA Comment Nasal Screen MRSA (PCR) SARS-CoV-2 (PCR) 05/26/22 05/26/22 05/26/22 20:00 22:08 22:45 WBC RBC Hgb Hct MCV MCH MCHC RDW Plt Count Neut % (Auto) Lymph % (Auto) [place] % (Auto) Eos % (Auto) Baso % (Auto) Neut # (Auto) Lymph # (Auto) [place] # (Auto) Eos # (Auto) Baso # (Auto) ESR PT INR Sodium Potassium Chloride Carbon Dioxide BUN Creatinine Estimated GFR BUN/Creatinine Ratio Glucose Hemoglobin A1c Lactate Calcium Magnesium Total Bilirubin AST ALT Alkaline Phosphatase C-Reactive Protein NT-Pro-B Natriuret Pep Total Protein Albumin Globulin Albumin/Globulin Ratio Procalcitonin TSH 0.96 Urine Color Urine Appearance Urine pH Ur Specific [place] Urine Protein Urine Glucose (UA) Urine Ketones Urine Occult Blood Urine Nitrate Urine Bilirubin Urine Urobilinogen Ur Leukocyte Esterase Urine RBC Urine WBC Urine Bacteria Ur Culture Indicated? Micro UA Comment Nasal Screen MRSA (PCR) Negative for mrsa SARS-CoV-2 (PCR) Negative 05/26/22 05/26/22 05/27/22 23:20 23:20 01:47 WBC RBC Hgb Hct MCV MCH MCHC RDW Plt Count Neut % (Auto) Lymph % (Auto) [place] % (Auto) Eos % (Auto) Baso % (Auto) Neut # (Auto) Lymph # (Auto) [place] # (Auto) Eos # (Auto) Baso # (Auto) ESR PT INR Sodium Potassium Chloride Carbon Dioxide BUN Creatinine Estimated GFR BUN/Creatinine Ratio Glucose Hemoglobin A1c Lactate Calcium Magnesium Total Bilirubin AST ALT Alkaline Phosphatase C-Reactive Protein NT-Pro-B Natriuret Pep Total Protein Albumin Globulin Albumin/Globulin Ratio Procalcitonin TSH Urine Color Yellow Urine Appearance Clear Urine pH 7.0 Ur Specific [place] 1.020 Urine Protein 1+ H Urine Glucose (UA) Trace H Urine Ketones 1+ H Urine Occult Blood Negative Urine Nitrate Negative Urine Bilirubin Negative Urine Urobilinogen 1.0 Ur Leukocyte Esterase Negative Urine RBC None seen Urine WBC None seen Urine Bacteria None seen Ur Culture Indicated? Cult not indicated Micro UA Comment Microscopic normal Nasal Screen MRSA (PCR) Cancelled Negative for mrsa SARS-CoV-2 (PCR) 05/27/22 05/27/22 05/27/22 06:34 06:34 06:34 WBC 12.7 H RBC 4.28 L Hgb 11.6 L Hct 34.8 L MCV 81.4 MCH 27.2 MCHC 33.4 RDW 16.0 H Plt Count 309 Neut % (Auto) 74.9 Lymph % (Auto) 12.3 L [place] % (Auto) 8.8 Eos % (Auto) 3.5 Baso % (Auto) 0.5 Neut # (Auto) 9500 H Lymph # (Auto) 1600 [place] # (Auto) 1100 H Eos # (Auto) 400 Baso # (Auto) 100 ESR PT 13.3 H INR 1.2 Sodium 136 L Potassium 4.0 Chloride 102 Carbon Dioxide 25 BUN 11 Creatinine 1.16 Estimated GFR > 60 BUN/Creatinine Ratio 9.5 Glucose 146 H Hemoglobin A1c Lactate Calcium 8.6 Magnesium Total Bilirubin 0.3 AST 12 L ALT 13 Alkaline Phosphatase 85 C-Reactive Protein NT-Pro-B Natriuret Pep Total Protein 6.0 L Albumin 3.1 L Globulin 2.9 Albumin/Globulin Ratio 1.1 Procalcitonin TSH Urine Color Urine Appearance Urine pH Ur Specific [place] Urine Protein Urine Glucose (UA) Urine Ketones Urine Occult Blood Urine Nitrate Urine Bilirubin Urine Urobilinogen Ur Leukocyte Esterase Urine RBC Urine WBC Urine Bacteria Ur Culture Indicated? Micro UA Comment Nasal Screen MRSA (PCR) SARS-CoV-2 (PCR) 05/27/22 05/27/22 06:34 06:34 WBC RBC Hgb Hct MCV MCH MCHC RDW Plt Count Neut % (Auto) Lymph % (Auto) [place] % (Auto) Eos % (Auto) Baso % (Auto) Neut # (Auto) Lymph # (Auto) [place] # (Auto) Eos # (Auto) Baso # (Auto) ESR PT INR Sodium Potassium Chloride Carbon Dioxide BUN Creatinine Estimated GFR BUN/Creatinine Ratio Glucose Hemoglobin A1c Lactate 1.0 Calcium Magnesium Total Bilirubin AST ALT Alkaline Phosphatase C-Reactive Protein NT-Pro-B Natriuret Pep Total Protein Albumin Globulin Albumin/Globulin Ratio Procalcitonin 0.13 TSH Urine Color Urine Appearance Urine pH Ur Specific [place] Urine Protein Urine Glucose (UA) Urine Ketones Urine Occult Blood Urine Nitrate Urine Bilirubin Urine Urobilinogen Ur Leukocyte Esterase Urine RBC Urine WBC Urine Bacteria Ur Culture Indicated? Micro UA Comment Nasal Screen MRSA (PCR) SARS-CoV-2 (PCR) [facility] Medical History Diabetes GERD (gastroesophageal reflux disease) Hernia, umbilical Hypertension Hypothyroidism Morbid obesity Ventral hernia with bowel obstruction Surgical History H/O cervical spine surgery (~2002) History of hernia repair Family History Mother Stroke Father COPD (chronic obstructive pulmonary disease) Social History household members: spouse Tobacco & Substance Use Smoking Status: Former smoker Assessment & Plan Assessment & Plan narrative: Pilonidal abscess. Plan: I and D with drain placement. continue treatment with antibiotics and remove drain in 3-5 days. Should seek outpatient consult with dermatology for treatment using biologics. COVID-19 COVID-19 status: Negative Time Spent With Patient Time with patient: 30 to 49 minutes with 50% spent counseling/coordinating care Critical Care time: I spent a total of [] minutes of critical care time on this patient's care today; this time is exclusive of procedural time.
--- NOTE | 2022-05-27 11:33 | PC.NURSE ---
Addendum entered by Chinyere Rosario R.N. 05/27/22 13:43: Patient back up to his room around 1315, patient has a dressing to his lower back with a juan drain under dressing and not visible. He is lying on his r.side and is tolerating discomfort. Will recheck patient in half an hour and see if he would like something more for pain than repositioning. Original Note: Patient down to surgery at 1030, he has a sacral abcess that is firm and red, measuring 10cm. He is alert and oriented x4, denied pain this am. is in room and waiting for patient to come back from his I&D.
[2022-05-27] MEDS: LACTATED RINGERS 1,000 ML 42 ML IV (11:49)
--- NOTE | 2022-05-27 12:22 | SUR.OPER ---
Lateral on a macario bag, head on pillow, gel axillary roll in place, bottom leg bent with gel pad under knee to foot, upper leg straight and supported with pillows. Upper arm supported by pillows and secured over bottom arm to padded arm board. Safety belt at hip, tape over blanket lower legs.
--- NOTE | 2022-05-27 12:25 | PM.OP.1 ---
Operative Date/Time/Diagnoses Date of procedure: 05/27/22 Time of procedure: 12:25 Pre-op diagnosis: Abscess of back Post-op diagnosis: same Procedure & Clinicians Procedure: I and D back abscess Same procedure as scheduled: Yes Indications: infection Surgeon: Kiay Diaz Click Yes if Unassisted: Yes Anesthesia Type: General Operative Notes Findings: NOT pilonidal. Large lower back abscess. 5cm x 5cmx 8cm Closure Type: not applicable Specimen(s): other (culture) Applied: drain(s) (penros drain) Estimated Blood Loss (mL): 30 Procedure in detail: Preop DX: pilonidal abscess Postop DX: back abscess, no associated pilonidal Operative procedure: I and D of back abscess Surgeon: Savanah Diaz MD Anesth: general with ET tube Findings: NO pilonidal, large simple abscess of midline lower back 5cm x 5cm x 8cm Procedure: Patient placed in left lateral position, prepped and drapped in a sterile fashion. 10 blade used for incision over altered skin. 40 ml pus removed, space irrigated and culture taken. Zacarias drain placed using counter incision and then stitched to itself. Dry dressing placed. Blood loss: 30ml Specimen: culture of back abscess Complications: none Post-operative Condition: stable Disposition: PACU
--- NOTE | 2022-05-27 12:30 | OT.IPNOTE ---
Pt having surgery for back abscess and therefore to check on pt tomorrow for Ot eval.
--- NOTE | 2022-05-27 12:51 | OT.IPNOTE ---
Pt in surgery for abscess on his back, to check on pt tomorrow for OT eval.
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
[2022-05-27] MEDS: HYDROMORPHONE 1 MG INJ IV (14:08)
--- NOTE | 2022-05-27 14:24 | P.PN_ITS ---
Subjective Subjective Date Patient Seen: 05/27/22 Interval history: 52-year-old male with a medical history [id number] type 2 diabetes, hypertension, hyperlipidemia, hypothyroidism, GERD, morbid obesity and significant sedentary lifestyle admitted due to abscess of the lower back. Patient had successful incision and drainage in the OR today with Dr. Diaz. Surgery report indicates 40 mL of pus was removed. Is sent and pending. Exam Vital Signs (past 8 hours): - 05/27/22 09:00 05/27/22 11:43 05/27/22 12:36 Temperature 97 F L 97.5 F L 97.4 F L Pulse Rate 89 96 H 96 H Respiratory Rate 18 16 10 L Blood Pressure 106/58 L 107/65 126/84 Pulse Oximetry 97 98 95 Oxygen Delivery Method Room Air Room Air Oxygen Flow Rate 2 05/27/22 12:30 05/27/22 12:41 05/27/22 12:46 Temperature 97.4 F L Pulse Rate 94 H 97 H 98 H Respiratory Rate 8 L 11 L 10 L Blood Pressure 105/78 118/85 125/87 Pulse Oximetry 95 95 94 Oxygen Delivery Method Room Air Room Air Room Air Oxygen Flow Rate 05/27/22 12:58 05/27/22 13:07 05/27/22 13:15 Temperature 99.0 F 98.8 F 97.2 F L Pulse Rate 97 H 95 H 94 H Respiratory Rate 17 17 14 Blood Pressure 133/90 127/79 105/58 L Pulse Oximetry 97 98 99 Oxygen Delivery Method Room Air Room Air Oxygen Flow Rate 0 05/27/22 13:45 Temperature 97.2 F L Pulse Rate 94 H Respiratory Rate 14 Blood Pressure 105/58 L Pulse Oximetry 99 Oxygen Delivery Method Oxygen Flow Rate 0 Oxygen Delivery Method Room Air Oxygen Flow Rate 0 Narrative Exam Narrative: General: Alert pleasant male in no acute distress Lungs: Clear Heart: Regular rhythm Back: Large, 5 x 5 cm, fluctuance mass on the lower lumbar region Extremities: No edema Objective Labs Result Diagrams: 05/27/22 06:34 05/27/22 06:34 Labs: Laboratory Results - last 24 hr 05/26/22 05/26/22 05/26/22 19:01 19:01 19:01 WBC 11.6 H RBC 4.91 Hgb 13.1 L Hct 40.3 L MCV 82.0 MCH 26.7 MCHC 32.6 RDW 15.9 H Plt Count 314 Neut % (Auto) 72.5 Lymph % (Auto) 14.7 L [place] % (Auto) 9.0 Eos % (Auto) 3.2 Baso % (Auto) 0.6 Neut # (Auto) 8400 H Lymph # (Auto) 1700 [place] # (Auto) 1100 H Eos # (Auto) 400 Baso # (Auto) 100 ESR PT INR Sodium 137 Potassium 3.9 Chloride 100 Carbon Dioxide 26 BUN 11 Creatinine 1.15 Estimated GFR > 60 BUN/Creatinine Ratio 9.6 Glucose 95 Hemoglobin A1c Lactate 1.4 Calcium 9.0 Magnesium Total Bilirubin 0.4 AST 16 L ALT 16 Alkaline Phosphatase 106 C-Reactive Protein NT-Pro-B Natriuret Pep Total Protein 7.6 Albumin 3.9 Globulin 3.7 Albumin/Globulin Ratio 1.1 Procalcitonin TSH Urine Color Urine Appearance Urine pH Ur Specific [place] Urine Protein Urine Glucose (UA) Urine Ketones Urine Occult Blood Urine Nitrate Urine Bilirubin Urine Urobilinogen Ur Leukocyte Esterase Urine RBC Urine WBC Urine Bacteria Ur Culture Indicated? Micro UA Comment Nasal Screen MRSA (PCR) SARS-CoV-2 (PCR) 05/26/22 05/26/22 05/26/22 19:01 19:01 19:01 WBC RBC Hgb Hct MCV MCH MCHC RDW Plt Count Neut % (Auto) Lymph % (Auto) [place] % (Auto) Eos % (Auto) Baso % (Auto) Neut # (Auto) Lymph # (Auto) [place] # (Auto) Eos # (Auto) Baso # (Auto) ESR PT INR Sodium Potassium Chloride Carbon Dioxide BUN Creatinine Estimated GFR BUN/Creatinine Ratio Glucose Hemoglobin A1c Lactate Calcium Magnesium 1.8 Total Bilirubin AST ALT Alkaline Phosphatase C-Reactive Protein NT-Pro-B Natriuret Pep 47 Total Protein Albumin Globulin Albumin/Globulin Ratio Procalcitonin 0.13 TSH Urine Color Urine Appearance Urine pH Ur Specific [place] Urine Protein Urine Glucose (UA) Urine Ketones Urine Occult Blood Urine Nitrate Urine Bilirubin Urine Urobilinogen Ur Leukocyte Esterase Urine RBC Urine WBC Urine Bacteria Ur Culture Indicated? Micro UA Comment Nasal Screen MRSA (PCR) SARS-CoV-2 (PCR) 05/26/22 05/26/22 05/26/22 19:01 19:01 19:01 WBC RBC Hgb Hct MCV MCH MCHC RDW Plt Count Neut % (Auto) Lymph % (Auto) [place] % (Auto) Eos % (Auto) Baso % (Auto) Neut # (Auto) Lymph # (Auto) [place] # (Auto) Eos # (Auto) Baso # (Auto) ESR 62 H PT INR Sodium Potassium Chloride Carbon Dioxide BUN Creatinine Estimated GFR BUN/Creatinine Ratio Glucose Hemoglobin A1c 6.2 H Lactate Calcium Magnesium Total Bilirubin AST ALT Alkaline Phosphatase C-Reactive Protein 4.5 H NT-Pro-B Natriuret Pep Total Protein Albumin Globulin Albumin/Globulin Ratio Procalcitonin TSH Urine Color Urine Appearance Urine pH Ur Specific [place] Urine Protein Urine Glucose (UA) Urine Ketones Urine Occult Blood Urine Nitrate Urine Bilirubin Urine Urobilinogen Ur Leukocyte Esterase Urine RBC Urine WBC Urine Bacteria Ur Culture Indicated? Micro UA Comment Nasal Screen MRSA (PCR) SARS-CoV-2 (PCR) 05/26/22 05/26/22 05/26/22 20:00 22:08 22:45 WBC RBC Hgb Hct MCV MCH MCHC RDW Plt Count Neut % (Auto) Lymph % (Auto) [place] % (Auto) Eos % (Auto) Baso % (Auto) Neut # (Auto) Lymph # (Auto) [place] # (Auto) Eos # (Auto) Baso # (Auto) ESR PT INR Sodium Potassium Chloride Carbon Dioxide BUN Creatinine Estimated GFR BUN/Creatinine Ratio Glucose Hemoglobin A1c Lactate Calcium Magnesium Total Bilirubin AST ALT Alkaline Phosphatase C-Reactive Protein NT-Pro-B Natriuret Pep Total Protein Albumin Globulin Albumin/Globulin Ratio Procalcitonin TSH 0.96 Urine Color Urine Appearance Urine pH Ur Specific [place] Urine Protein Urine Glucose (UA) Urine Ketones Urine Occult Blood Urine Nitrate Urine Bilirubin Urine Urobilinogen Ur Leukocyte Esterase Urine RBC Urine WBC Urine Bacteria Ur Culture Indicated? Micro UA Comment Nasal Screen MRSA (PCR) Negative for mrsa SARS-CoV-2 (PCR) Negative 05/26/22 05/26/22 05/27/22 23:20 23:20 01:47 WBC RBC Hgb Hct MCV MCH MCHC RDW Plt Count Neut % (Auto) Lymph % (Auto) [place] % (Auto) Eos % (Auto) Baso % (Auto) Neut # (Auto) Lymph # (Auto) [place] # (Auto) Eos # (Auto) Baso # (Auto) ESR PT INR Sodium Potassium Chloride Carbon Dioxide BUN Creatinine Estimated GFR BUN/Creatinine Ratio Glucose Hemoglobin A1c Lactate Calcium Magnesium Total Bilirubin AST ALT Alkaline Phosphatase C-Reactive Protein NT-Pro-B Natriuret Pep Total Protein Albumin Globulin Albumin/Globulin Ratio Procalcitonin TSH Urine Color Yellow Urine Appearance Clear Urine pH 7.0 Ur Specific [place] 1.020 Urine Protein 1+ H Urine Glucose (UA) Trace H Urine Ketones 1+ H Urine Occult Blood Negative Urine Nitrate Negative Urine Bilirubin Negative Urine Urobilinogen 1.0 Ur Leukocyte Esterase Negative Urine RBC None seen Urine WBC None seen Urine Bacteria None seen Ur Culture Indicated? Cult not indicated Micro UA Comment Microscopic normal Nasal Screen MRSA (PCR) Cancelled Negative for mrsa SARS-CoV-2 (PCR) 05/27/22 05/27/22 05/27/22 06:34 06:34 06:34 WBC 12.7 H RBC 4.28 L Hgb 11.6 L Hct 34.8 L MCV 81.4 MCH 27.2 MCHC 33.4 RDW 16.0 H Plt Count 309 Neut % (Auto) 74.9 Lymph % (Auto) 12.3 L [place] % (Auto) 8.8 Eos % (Auto) 3.5 Baso % (Auto) 0.5 Neut # (Auto) 9500 H Lymph # (Auto) 1600 [place] # (Auto) 1100 H Eos # (Auto) 400 Baso # (Auto) 100 ESR PT 13.3 H INR 1.2 Sodium 136 L Potassium 4.0 Chloride 102 Carbon Dioxide 25 BUN 11 Creatinine 1.16 Estimated GFR > 60 BUN/Creatinine Ratio 9.5 Glucose 146 H Hemoglobin A1c Lactate Calcium 8.6 Magnesium Total Bilirubin 0.3 AST 12 L ALT 13 Alkaline Phosphatase 85 C-Reactive Protein NT-Pro-B Natriuret Pep Total Protein 6.0 L Albumin 3.1 L Globulin 2.9 Albumin/Globulin Ratio 1.1 Procalcitonin TSH Urine Color Urine Appearance Urine pH Ur Specific [place] Urine Protein Urine Glucose (UA) Urine Ketones Urine Occult Blood Urine Nitrate Urine Bilirubin Urine Urobilinogen Ur Leukocyte Esterase Urine RBC Urine WBC Urine Bacteria Ur Culture Indicated? Micro UA Comment Nasal Screen MRSA (PCR) SARS-CoV-2 (PCR) 05/27/22 05/27/22 06:34 06:34 WBC RBC Hgb Hct MCV MCH MCHC RDW Plt Count Neut % (Auto) Lymph % (Auto) [place] % (Auto) Eos % (Auto) Baso % (Auto) Neut # (Auto) Lymph # (Auto) [place] # (Auto) Eos # (Auto) Baso # (Auto) ESR PT INR Sodium Potassium Chloride Carbon Dioxide BUN Creatinine Estimated GFR BUN/Creatinine Ratio Glucose Hemoglobin A1c Lactate 1.0 Calcium Magnesium Total Bilirubin AST ALT Alkaline Phosphatase C-Reactive Protein NT-Pro-B Natriuret Pep Total Protein Albumin Globulin Albumin/Globulin Ratio Procalcitonin 0.13 TSH Urine Color Urine Appearance Urine pH Ur Specific [place] Urine Protein Urine Glucose (UA) Urine Ketones Urine Occult Blood Urine Nitrate Urine Bilirubin Urine Urobilinogen Ur Leukocyte Esterase Urine RBC Urine WBC Urine Bacteria Ur Culture Indicated? Micro UA Comment Nasal Screen MRSA (PCR) SARS-CoV-2 (PCR) [facility] Medical History Diabetes GERD (gastroesophageal reflux disease) Hernia, umbilical Hypertension Hypothyroidism Morbid obesity Ventral hernia with bowel obstruction Surgical History H/O cervical spine surgery (~2002) History of hernia repair Family History Mother Stroke Father COPD (chronic obstructive pulmonary disease) Social History household members: spouse Smoking Status: Former smoker Assessment & Plan Assessment & Plan narrative: 1. Lumbar sacral abscess, acute, present on admission NS setting of diabetes mellitus, acute on chronic, present on admission -Monitor for bacteremia, endocarditis, septic arthritis osteomyelitis, metastatic infection, sepsis, and toxic shock syndrome. -MRI negative for deep infection or osteo -Ultrasound demonstrated late phelegman versus early abscess. -status post incision and drainage 05/27/[address] Diaz -continue vancomycin and cefepime pending wound and blood culture results 2. Qde-wdzahwv-tavlleugv type 2 diabetes with hyperlipidemia, chronic, and peripheral neuropathy, chronic, present on admission -restarted glipizide, metformin (pt may use own medication-Ozempic) continue magnesium -admitted on diabetic protocol, monitor for hypoglycemia, following surgery BS checks a.c. HS -cover with low-dose sliding scale -Orderd A1C: 6.2% 3. Hypertension, essential, chronic, present on admission -continue lisinopril, metoprolol 4. Hypothyroidism, acquired, chronic, present on admission -continue leave soon replacement per home routine -TSH 0.96 5. GERD, chronic, present on admission -continue omeprazole 6. Obstructive sleep apnea, with chronic CPAP usage, chronic, present on admission -respiratory consult-facilitate CPAP 7. Obesity, moderate, acute on chronic, present on admission -dietary consult ordered regarding nutritional education and information for dietary, lifestyle, exercise, and weight changes. -the patient is at much higher risk for medical and surgical complications due to obesity as it relates to his diabetes, HTN, HLD, sedentary lifestyle, and cellulitis/abcess reoccurrence.? The patient's obesity increases the difficulty and complexity of medical and/or surgical interventions, management and increases the chances of poor outcome such as morbidity and mortality as well as impaired wound healing. -provided fair amount of patient education regarding the need to be active, ambulatory, use of assistive devices, to decrease pressure ulcers/cellulitis/abscess/diabetic complications Time Spent With Patient Critical Care time: I spent a total of [] minutes of critical care time on this patient's care today; this time is exclusive of procedural time.
[2022-05-27] MEDS: AMITRIPTYLINE 25 MG TABLET PO (21:01)
[2022-05-27] MEDS: METFORMIN XR 500 MG TABLET 2000 MG PO (21:01)
[2022-05-27] MEDS: VANCOMYCIN 2,000 MG/400 ML PIGGYBACK 200 MG IV (23:01)
[2022-05-27] MEDS: DEXTROSE 5%-0.9% NS 1,000 ML 60 ML IV (23:09)
--- NOTE | 2022-05-27 23:14 | PC.NURSE ---
Addendum entered by Laat Robb R.N. 05/28/22 05:31: dressing saturated with serosanguinous drainage; dressing changed Original Note: Patient is alert and oriented with flat affect. Breath sounds diminished throughout but CTA with RA sat (on CPAP) is 93%. HRR. Denies nausea. BT hypoactive but states he is passing flatus. Denies dysuria and is using urinal to void. Able to turn himself in bed and has been good with lying on sides rather than back. Gait not assessed at this time. Dressing to wound on sacrum is CDI. Denies pain. Wearing bilateral calf SCD's. Fall risk score is moderate but no alarm is in use as patient calls for assistance appropriately.
[2022-05-28 03:25] VITALS: BP 112/64; PULSE 83; RESP 17; TEMP 36.2; O2SAT 97
[2022-05-28] MEDS: CEFEPIME 2 GM in SODIUM CHLORIDE 0.9% 100 ML IV (05:42)
[2022-05-28 06:35] LABS: Add Manual Diff / Slide Review NO; Basophils Absolute Auto 100 /uL (0-100); Basophils Percent Auto 0.7 % (0-2); Eosinophils Absolute Auto 600 /uL (0-450); Eosinophils Percent Auto 5.1 % (2-4); Hematocrit 34.4 % (41-53); Hemoglobin 11.3 g/dL (13.5-17.5); Lymphocytes Absolute Auto 1600 /uL (1100-4500); Lymphocytes Percent Auto 14.8 % (25-40); Mean Corpuscular HGB Conc 32.8 % (30-36); Mean Corpuscular Volume 82.3 fL (80-100); Monocytes Absolute Auto 1000 /uL (0-900); Monocytes Percent Auto 9.1 % (3-14); Neutrophils Absolute Auto 7700 /uL (1500-7000); Neutrophils Percent Auto 70.3 % (50-75); Platelet Count 315 X10^3/uL (150-400); Red Blood Cell Count 4.18 X10^6/uL (4.5-5.9); Red Cell Distribution Width 15.9 % (11.6-14.8); White Blood Cell Count 10.9 X10^3/uL (4.5-11.0)
[2022-05-28 06:50] LABS: Alanine Aminotransferase 13 IU/L (<50); Albumin 3.3 g/dL (3.5-5.0); Alkaline Phosphatase 85 U/L (38-126); Aspartate Aminotransferase 14 IU/L (17-59); BUN Creatinine Ratio 9.6 (6-22); Bilirubin Total 0.4 mg/dL (0.2-1.3); Blood Urea Nitrogen 10 mg/dL (9-20); Calcium 8.6 mg/dL (8.4-10.2); Carbon Dioxide 22 mmol/L (22-32); Chloride 105 mmol/L (98-107); Estimated Glomerular Filt Rate > 60 mL/min (>60); Globulin 3.4 g/dL (1.7-4.1); Glucose 110 mg/dL (70-100); HEMOLYSIS < 15 (0-50); Potassium 3.9 mmol/L (3.4-5.1); Sodium 137 mmol/L (137-145); Total Protein 6.7 g/dL (6.3-8.2)
[2022-05-28 07:00] VITALS: BP 121/76; PULSE 89; RESP 18; TEMP 35.9; O2SAT 98
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
[2022-05-28 09:50] VITALS: BP 121/76; PULSE 89
[2022-05-28] MEDS: MAGNESIUM OXIDE 400 MG TABLET PO (09:50)
[2022-05-28] MEDS: PANTOPRAZOLE DR 20 MG TABLET PO (09:50)
[2022-05-28] MEDS: METFORMIN XR 500 MG TABLET 2000 MG PO (09:50)
[2022-05-28] MEDS: GABAPENTIN 600 MG TABLET PO (09:50)
[2022-05-28] MEDS: ATORVASTATIN 20 MG TABLET 10 MG PO (09:50)
[2022-05-28] MEDS: lisinopriL 10 MG TABLET PO (09:50)
[2022-05-28] MEDS: METOPROLOL IR 25 MG TABLET PO (09:52)
--- NOTE | 2022-05-28 11:57 | OT.IPNOTE ---
Pt has no OT needs and has a supportive to assist with his needs. Discharge OT eval orders.
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
--- NOTE | 2022-05-28 13:00 | CM.DPC ---
DCP Discharge Home with HH Per MD, Surgeon recommends pt to d/c home with drain for 5 days but no significant wound care needs but will be some drainage and recommending HH RN for drain/wound care. Per PT/OT, home with spouse recommended. SW met bedside with pt and spouse and discussed d/c and HH RN and pt and spouse confirm they feel HH RN would be helpful but deny any PT or OT needs. SW provided HH Choice list and no preference and SW called [facility] based on Vendor Calendar and they can open the pt to service on Wed06/01/21 prior to drain needing to be out and can accept referral. KENYA called [facility] and they cannot open until mid next week, after [facility]. [facility] does not cover [facility]. ANTHONY Rangel kindly faxed initial HH referral to [facility] and KENYA faxed F2[facility] and HH orders. Plan: Patient to d/c via spouse POV today and new [facility] made and to start Wednesday. JESSI Pierre
== END 2022-05-28 14:03 | disposition home health service (06) | DRG 603 ==
LOC: ED 18:33 → AC 05-27 07:58
PROVIDERS: Nurse Practitioner Family; Surgery; Admitting Provider Internal Medicine; Emergency Provider Emergency Medicine; Referring Provider Emergency Medicine; Visit Provider Internal Medicine
PROC: 0W9L00Z Drainage of Lower Back with Drainage Device, Open Approach (ICD-10-PCS; principal; 2022-05-27 11:30)
DX: L02.212 Cutaneous abscess of back [any part, except buttock and flank] (principal); L02.818 Cutaneous abscess of other sites; E11.628 Type 2 diabetes mellitus with other skin complications; E11.42 Type 2 diabetes mellitus with diabetic polyneuropathy; I10 Essential (primary) hypertension; E03.9 Hypothyroidism, unspecified; K21.9 Gastro-esophageal reflux disease without esophagitis; G47.33 Obstructive sleep apnea (adult) (pediatric); E66.01 Morbid (severe) obesity due to excess calories; E78.5 Hyperlipidemia, unspecified; B95.62 Methicillin resistant Staphylococcus aureus infection as the cause of diseases classified elsewhere; Z87.891 Personal history of nicotine dependence; Z79.85 Long-term (current) use of injectable non-insulin antidiabetic drugs; Z79.84 Long term (current) use of oral hypoglycemic drugs; Z68.38 Body mass index [BMI] 38.0-38.9, adult; Z20.822 Contact with and (suspected) exposure to COVID-19
CPT/HCPCS: 10060; 36415; 71046; 72158; 76705; 80053; 81001; 82962; 83036; 83605; 83735; 83880; 84145; 84443; 85025; 85610; 85651; 86140; 87040; 87070; 87075; 87077; 87147; 87186; 87205; 87635; 87797; 96365; 97161; 99232; 99284; C9803; J0330; J0692; J1170; J1815; J2250; J2405; J2704; J3010